=== PATIENT | male | born 1955 | race Caucasian/White ===

== ENCOUNTER 2020-02-07 11:25 | Outpatient (REF) | payer BC, SELFPAY | END 2020-02-07 11:45 | LOC: LBN 11:25 | PROVIDERS: PCP Nurse Practitioner; Visit Provider Nurse Practitioner Gerontology | DX: N40.1 Benign prostatic hyperplasia with lower urinary tract symptoms (principal); N13.8 Other obstructive and reflux uropathy | CPT/HCPCS: 87086 ==

== ENCOUNTER 2020-02-14 02:02 | Outpatient (CLI) | payer BC, SELFPAY ==
--- NOTE | 2020-02-14 11:00 | DI.CT_ITS ---
EXAM: CT ABDOMEN PELVIS WO/W CLINICAL HISTORY: microscopic hematuria, R31.9 TECHNIQUE: CT examination of the abdomen and pelvis was performed utilizing CT urogram protocol. COMPARISON: No exams were available for comparison FINDINGS: Noncontrast CT shows no urinary tract calcification. There are changes of apparent scarring of the lung bases bilaterally. There is a right middle lobe s mooth margined noncalcified intrapulmonary nodule which measures 5 x 7 x [address] Follow[address] CT recommended in [address] can be obtained for comparison. The liver and kidneys contain multiple small cysts. No solid lesion identified in the kidneys or max er. Splenic granuloma noted. Spleen otherwise unremarkable. There is a 19 millimeter left adrenal mass with attenuation in the 0-5 Hounsfield unit range. This i s likely benign and does not require additional follow-up. There is 40 millimeter in diameter abdominal aortic aneurysm which is infrarenal. 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 No significant abdominal or pelvic adenopathy seen. No significant abdominal wa ll hernia seen. Appendix is not specifically visualized but there is no evidence of appendicitis or diverticulitis. Apart from the aforementioned bilateral small renal cysts, the largest of the lower pole of the right kidney measuring roughly 2.5 cm in diameter, no renal mass is identified. No nephrolithiasis. No u reterolithiasis. No hydronephrosis. Urinary bladder appears mildly thick walled which is a nonspeci fic finding. Prostate is enlarged. IMPRESSION: 1. Urinary bladder wall thickening, nonspecific, this may represent chronic bladder outlet obstructio n or inflammation. 2. 40 millimeter in diameter abdominal aortic aneurysm. 3. Right and left common iliac artery aneurysms, 26 millimeters and 25 millimeters in diameter respec tively. 4. Incidental right middle lobe pulmonary nodule, noncalcified. Malignancy not excluded, follow-up c hest CT recommended in 6 months to assess stability in the absence of prior chest CT.
[2020-02-14] MEDS: Omnipaque 350 MG/ML 100 ML BTL IJ (11:36)
== END 2020-02-14 02:22 ==
PROVIDERS: PCP Nurse Practitioner; Visit Provider Nurse Practitioner Gerontology
DX: R31.29 Other microscopic hematuria (principal); N32.89 Other specified disorders of bladder; R91.1 Solitary pulmonary nodule; I71.4 Abdominal aortic aneurysm, without rupture; N28.1 Cyst of kidney, acquired; N40.0 Benign prostatic hyperplasia without lower urinary tract symptoms; I72.3 Aneurysm of iliac artery
CPT/HCPCS: 74178; J3490

== ENCOUNTER 2020-05-05 08:09 | Outpatient (CLI) | payer BC, SELFPAY ==
[2020-05-06 00:59] LABS: COVID-19 RT-PCR UVMMC Result Negative (Negative)
== END 2020-05-05 08:29 ==
PROVIDERS: Nurse Practitioner Gerontology; PCP Nurse Practitioner; Visit Provider Urology
DX: Z11.59 Encounter for screening for other viral diseases (principal)
CPT/HCPCS: U0003

== ENCOUNTER 2020-05-08 08:22 | Day surgery (SDC) | payer BC, SELFPAY ==
[2020-05-08 08:25] VITALS: BP 125/85; PULSE 83; RESP 16; TEMP 36.6; O2SAT 96
[2020-05-08] MEDS: Lactated Ringers 1,000 ML 80 ML IV (08:52)
--- NOTE | 2020-05-08 08:58 | W.PM.HP.N ---
Date of service: 05/08/20 Assessment and Plan Assessment and plan (1) Microscopic hematuria: Status: Acute Assessment and plan: We will complete his hematuria workup with cystoscopy History of Present Illness History of Present Illness Chief Complaint: Microscopic hematuria Narrative: Juan is 64-year-old male referred to urology by [facility] for dysuria, hematuria, and frequency. He reports that this is been going off and on for approximately 1 year. More recently he was treated with 2 different types of antibiotics for question of a UTI. He reports he was first on Bactrim which decreased the dysuria and frequency however, after coming off of the antibiotic symptoms returned again. He was then placed on doxycycline which he reports did nothing for his symptoms. He reports recently in the last few days approximately 3 hours after he had intercourse with his he had a painful sensation. He denies gross hematuria, hesitancy, the feeling of incomplete emptying, abnormal bleeding or bruising, abnormal weight, or long bone pain(he questions if he does have long bone pain because he has hip pain but that is been going on for a long time). He questions if he passed a kidney stone recently due to having right flank pain and shortly after straining to urinate having seen what he thought was a possible stone. He is currently on Flomax 0.4 mg p.o. daily since August(approximately 6 months). He does not know if it has helped with any of his LUTS. He reports frequent urination approximately 8-10 times during the day and 3:57 at night. He has discomfort with urinating, slow stream, weak stream, need to push, urgency and history of prostate inflammation. He notes that he recently had a PAULY with his PCP. He states he also had a PSA done recently. He was evaluated with a CT Urogram that shows no solid renal mass. No filling defects in the renal pelvis or ureters are seen. Review of Systems Narrative: Const: Reports as per HPI; Denies chills, fatigue, fever(s) or weight loss Card: Denies chest pain or dyspnea Resp: Denies dyspnea GI: Denies abdominal pain, constipation or diarrhea : Reports dysuria, nocturia, urinary frequency and urinary urgency; Denies hematuria, flank pain, urinary hesitancy or urinary incontinence Endo: Denies fatigue PFSH Social History Smoking/Tobacco Use Status: Former Tobacco Use Quit Date: 08/24/19 Alcohol Intake: never Drug use: Never Substance use type: does not use Do you feel safe at home: Yes Do you feel safe in your relationship?: Yes Meds Home Medications and Allergies Home Medications Medication Instructions Recorded Confirmed Type aspirin 81 mg PO DAILY tab-cap NS 08/12/17 05/08/20 History pyridostigmine bromide 60 mg PO QID tab-cap NS 08/12/17 05/08/20 History atorvastatin 20 mg tablet 20 mg PO DAILY 01/31/20 05/08/20 History diphenhydramine 25 1 tab PO QHS PRN 01/31/20 05/08/20 History mg-acetaminophen 500 mg tablet nicotine 1 patch TD DAILY 01/31/20 05/08/20 History 21mg/24hr-14mg/24hr-7mg/24hr daily transderm patch,sequential tamsulosin 0.4 mg capsule 0.8 mg PO DAILY #180 cap 02/16/20 05/08/20 Rx Allergies Allergy/AdvReac Type Severity Reaction Status Date / Time blueberry Allergy Unverified 05/08/20 08:27 Exam Narrative Exam Narrative: Const Orientation: alert, awake and oriented x3 Other: VS reviewed that were done by nurse Eyes Sclera: sclerae normal Resp Effort & Inspection: normal respiratory effort GI Inspection: normal to inspection and non-distended Palpation: soft and nontender Rectal Exam: prostate abnormal enlarged; no nodules and nontender General: No CVA tenderness Extrem General: full ROM Resp Auscultation: clear to auscultation bilaterally Cardio Rate: regular rate Rhythm: regular rhythm Results Last Vital Signs Temp 36.6 C 05/08/20 08:25 Pulse 83 05/08/20 08:25 Resp 16 05/08/20 08:25 BP 125/85 05/08/20 08:25 Pulse Ox 96 05/08/20 08:25 COVID-19 Screening In the past 14 days, have you traveled outside of [place] or [place]?: NO
[2020-05-08] MEDS: ceFAZolin 1 GM/50 ML BAG IVPB (11:01)
[2020-05-08] MEDS: Lidocaine 2% Jelly 6 ML SYR (11:16)
--- NOTE | 2020-05-08 11:22 | W.PM.DSUDISC ---
Discharge Plan Disposition Patient Disposition: HOME Condition: Stable Discharge Details Attending Provider: Jeffrey Aguirre Primary Care Provider: Hermila Hamilton Home Meds and New Rx's Prescriptions: No Action tamsulosin 0.4 mg capsule 0.8 mg PO DAILY Qty: 180 RF: 3 aspirin 325 MG tablet 81 mg PO DAILY RF: 0 pyridostigmine bromide 60 MG tablet 60 mg PO QID RF: 0 atorvastatin 20 mg tablet 20 mg PO DAILY RF: 0 diphenhydramine-acetaminophen [Tylenol PM Extra Strength] 25-500 mg tablet 1 tab PO QHS PRNRF: 0 nicotine 21-14-7 mg/24 hr patch, TD daily, sequential 1 patch TD DAILY RF: 0 Discharge Instructions Additional Instructions: Will need yearly urinalysis (for microscopic hematuria) Will need 3 month followup for his BPH with LUTS (Melissa Saeed) Activity:: Activity as Tolerated Shower/Bathe:: 24 hours Diet:: As Tolerated Discharge Orders Discharge Orders: Discharge Order (Routine); Ordered 05/08/20 Ordered By: Jeffrey Aguirre DS: Diagnosis Discharge Diagnosis (1) Microscopic hematuria: Status: Acute
--- NOTE | 2020-05-08 11:30 | W.PM.OP ---
Date of service: 05/08/20 Time of Service: 11:30 Operative Note Operative Note DATE OF PROCEDURE: 05/08/20 PRE-OP DIAGNOSIS: Microscopic Hematuria POST-OP DIAGNOSIS: same PROCEDURE: Cystoscopy SURGEON: Jeffrey Aguirre ANESTHESIA: local and other (General by facemask) ESTIMATED BLOOD LOSS: 0 PATHOLOGY: none sent COMPLICATIONS: None Patient was transported to: same day Patient's condition: stable Indications: This is a 65-year-old gentleman who has a finding of microscopic hematuria. He was evaluated with a CT urogram which showed no sign of significant renal or ureteral pathology. He presents now for cystoscopy to complete his hematuria work-up. Findings: Diffusely enlarged prostate No bladder lesions Procedure Description: The patient was given a dose of preoperative IV antibiotics and brought to the operating room on 05/08/2020. After successful induction of general anesthesia he was placed in the dorsal lithotomy position. His genitalia was prepped and draped. 2% Xylocaine jelly was passed through the urethra into the bladder to act as a local anesthetic. We then passed a 17 Macanese cystoscope through the urethra to the bladder. The urethra and bladder were inspected with a 30 degree lens. The pendulous, bulbous and membranous urethra was appeared normal with no strictures. The prostatic urethra showed trilobar hypertrophy with a small median lobe jetting back into the bladder. The bladder neck was entered and the bladder mucosa was inspected. Both ureteral orifice ease appeared normal with no blood seen coming from either side. The remainder of the bladder mucosa showed no papillary or nodular lesions. These findings were confirmed on reinspection of the bladder using a 70 degree lens. With no suspicious pathology identified, we drained the bladder and remove the scope. He tolerated this procedure well. The current AUA recommendations include a yearly urinalysis and a repeat work-up in 3 to 5 years if the hematuria persists.
[2020-05-08] MEDS: Phenazopyridine 200 MG TAB PO (11:53)
[2020-05-08 12:04] VITALS: BP 129/73; PULSE 76; RESP 18; TEMP 36.5; O2SAT 96
== END 2020-05-08 12:15 | disposition home or self-care (01) ==
PROVIDERS: PCP Nurse Practitioner; Visit Provider Urology
PROC: 0TJB8ZZ Inspection of Bladder, Via Natural or Artificial Opening Endoscopic (ICD-10-PCS; CPT 52000; principal; 2020-05-08 09:30)
DX: R31.29 Other microscopic hematuria (principal); N40.0 Benign prostatic hyperplasia without lower urinary tract symptoms
CPT/HCPCS: 52000; NC; J0690

== ENCOUNTER 2021-04-24 17:40 | Outpatient (REF) | payer BC, SELFPAY ==
[2021-04-24 16:12] LABS: Bilirubin Negative (Negative); Blood Small (Negative); Clarity Clear (Clear); Glucose Negative (Negative); Ketones Negative (Negative); Leukocyte Esterase Negative (Negative); Nitrite Negative (Negative); Specific Gravity 1.025 (1.005-1.025); Urobilinogen 0.2 EU/dL (Up TO 0.2); pH 5.5 (5-8)
[2021-04-24 16:22] LABS: WBC Negative HPF (0-5)
[2021-04-24 16:23] LABS: Bacteria Negative HPF (Negative); C & S Indicated? No; Casts Negative LPF (Negative); Crystals Negative HPF (Negative); Epithelial Cells Rare HPF (Negative); Mucus Negative (Negative); Other Cells Rare Renal (Negative)
== END 2021-04-24 17:41 | disposition home or self-care (01) ==
LOC: LBN 17:40
PROVIDERS: PCP Nurse Practitioner; Visit Provider Nurse Practitioner Gerontology
DX: R31.1 Benign essential microscopic hematuria (principal)
CPT/HCPCS: 81003; 81015

== ENCOUNTER → 2021-12-27 07:58 | Outpatient (BNVA) | payer MEDICARE, SELFPAY | PROVIDERS: PCP Nurse Practitioner; Referring Provider Nurse Practitioner; Visit Provider Nurse Practitioner Gerontology | DX: N40.1 Benign prostatic hyperplasia with lower urinary tract symptoms (principal); N13.8 Other obstructive and reflux uropathy; R31.29 Other microscopic hematuria; R10.2 Pelvic and perineal pain | CPT/HCPCS: 99443 ==

== ENCOUNTER → 2022-01-28 14:39 | Outpatient (BNVA) | payer MEDICARE, SELFPAY | PROVIDERS: PCP Nurse Practitioner; Referring Provider Nurse Practitioner; Visit Provider Nurse Practitioner Gerontology | DX: R69 Illness, unspecified (principal) ==

== ENCOUNTER → 2022-01-29 09:47 | Outpatient (BNVA) | payer MEDICARE, SELFPAY | PROVIDERS: PCP Nurse Practitioner; Referring Provider Nurse Practitioner; Visit Provider Nurse Practitioner Gerontology | DX: N40.1 Benign prostatic hyperplasia with lower urinary tract symptoms (principal); N13.8 Other obstructive and reflux uropathy; R31.29 Other microscopic hematuria; N41.9 Inflammatory disease of prostate, unspecified | CPT/HCPCS: 81003; 99214 ==

== ENCOUNTER 2022-01-29 15:45 | Outpatient (REF) | payer MEDICARE, SELFPAY ==
[2022-01-29 13:01] LABS: Bilirubin Negative (Negative); Blood Large (Negative); Clarity Sl Cloudy (Clear); Glucose Negative (Negative); Ketones Negative (Negative); Leukocyte Esterase Trace (Negative); Nitrite Negative (Negative); Specific Gravity >= 1.030 (1.005-1.025); Urobilinogen 0.2 EU/dL (Up TO 0.2); pH 5.5 (5-8)
[2022-01-29 13:07] LABS: Bacteria Rare HPF (Negative); C & S Indicated? C&S Done As Ordered; Casts 3-5 Hyaline LPF (Negative); Crystals Negative HPF (Negative); Epithelial Cells Few HPF (Negative); Mucus Negative (Negative); RBC >50 HPF (0-2)
== END 2022-01-29 15:46 | disposition home or self-care (01) ==
LOC: NCHCN 15:45
PROVIDERS: PCP Nurse Practitioner; Visit Provider Nurse Practitioner Gerontology
DX: R30.0 Dysuria (principal)
CPT/HCPCS: 81003; 81015; 87086

== ENCOUNTER 2022-01-29 16:14 | Outpatient (REF) | payer MEDICARE, SELFPAY ==
[2022-01-31 19:51] LABS: PSA, Screening 1.7 ng/mL (0.0-4.5)
== END 2022-01-29 16:15 | disposition home or self-care (01) ==
LOC: LBN 16:14
PROVIDERS: PCP Nurse Practitioner; Visit Provider Nurse Practitioner Gerontology
DX: N13.8 Other obstructive and reflux uropathy (principal); N40.1 Benign prostatic hyperplasia with lower urinary tract symptoms; Z12.5 Encounter for screening for malignant neoplasm of prostate
CPT/HCPCS: 84153

== ENCOUNTER → 2022-02-13 14:40 | Outpatient (BNVA) | payer MEDICARE, SELFPAY | PROVIDERS: PCP Nurse Practitioner; Referring Provider Nurse Practitioner; Visit Provider Nurse Practitioner Gerontology | DX: N40.1 Benign prostatic hyperplasia with lower urinary tract symptoms (principal); N13.8 Other obstructive and reflux uropathy; R31.29 Other microscopic hematuria; R10.2 Pelvic and perineal pain | CPT/HCPCS: 99443 ==

== ENCOUNTER → 2022-06-26 07:35 | Outpatient (BNVA) | payer MEDICARE, SELFPAY | PROVIDERS: PCP Nurse Practitioner; Referring Provider Nurse Practitioner; Visit Provider Nurse Practitioner Gerontology | DX: R35.1 Nocturia (principal); R39.15 Urgency of urination; R39.12 Poor urinary stream; N40.1 Benign prostatic hyperplasia with lower urinary tract symptoms; N13.8 Other obstructive and reflux uropathy; R31.0 Gross hematuria | CPT/HCPCS: 99443 ==

== ENCOUNTER 2022-08-14 10:16 | Outpatient (REF) | payer MEDICARE, SELFPAY ==
[2022-08-14 11:35] LABS: Source Nasal/Nares
[2022-08-14 16:51] LABS: COVID-19 PCR Negative (Negative)
== END 2022-08-14 10:17 | disposition home or self-care (01) ==
LOC: LBN 10:16
PROVIDERS: PCP Nurse Practitioner; Visit Provider Urology
DX: Z11.59 Encounter for screening for other viral diseases (principal)
CPT/HCPCS: 87635

== ENCOUNTER 2022-08-15 09:13 | Inpatient (IN) | payer MEDICARE, SELFPAY ==
[2022-08-15] VITALS (19 sets, daily range): BP systolic 47–138; BP diastolic 34–86; PULSE 57–89; RESP 13–26; TEMP 36–36.7; O2SAT 91–96; BMI 24.8
--- NOTE | 2022-08-15 06:49 | ANES.PREOP_ITS ---
General Info Date of Service Date Performed: 08/15/22 Height: 6 ft Weight: 83.007 kg Body Mass Index (BMI): 24.8 Surgical Procedure: Operation Date: 08/15/22 07:40 Proposed Procedure Side Surgeon p Cysto w/Transurethral Resection Prostate Jeffrey Aguirre MD Meds Allergies and Home Medications Allergies Allergy/AdvReac Type Severity Reaction Status Date / Time finasteride Allergy testicular Verified 08/15/22 06:27 discomfort blueberry AdvReac Vomiting Unverified 08/15/22 06:27 Home Medication Medication Instructions Recorded aspirin 325 mg tablet 81 mg PO HS 08/12/17 atorvastatin 20 mg tablet 20 mg PO HS 01/31/20 diphenhydramine 25 1 tab PO QHS PRN 01/31/20 mg-acetaminophen 500 mg tablet (Tylenol PM Extra Strength) ibuprofen 800 mg tablet 800 mg PO TID PRN pain #360 tabs 09/05/21 amitriptyline 50 mg tablet 50 mg PO QHS #90 tabs 01/29/22 tadalafil 5 mg tablet (Cialis) 5 mg PO HS 08/13/22 tamsulosin 0.4 mg capsule 0.8 mg PO HS 08/13/22 Current Visit Medications: Current Medications Generic Name Dose Route Start Last Admin Trade Name Freq PRN Reason Stop Dose Admin Ringer's Solution 1,000 mls @ 80 mls/hr 08/15/22 06:00 IV 09/13/22 23:59 INFUSION OLIVE Cefazolin Sodium/Dextrose 2 gm in 50 mls @ 100 mls/hr 08/15/22 06:00 Ancef Duplex IVPB 08/15/22 16:00 PREOP OLIVE IV Miscellaneous Supplies 1 each 08/15/22 06:00 Iv Access IV 09/13/22 23:59 DIRECTED OLIVE Sodium Chloride 0 ml 08/15/22 06:00 Normal Saline Flush 10 Ml Syr IV 09/13/22 23:59 PRN PRN Sodium Chloride 0 ml 08/15/22 06:00 Normal Saline 10 Ml Vial IJ 09/13/22 23:59 DIRECTED PRN Sterile Water 0 ml 08/15/22 06:00 Water,Injection,Sterile 10 Ml Vial IJ 09/13/22 23:59 DIRECTED PRN PFSH Active Problems Active Problems: Problem Status Onset Code BPH w urinary obs/LUTS N40.1, N13.8 Microscopic hematuria R31.29 Medical History Medical History 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 Basal cell carcinoma Dysuria [place]liac artery [place] [facility] [place] Left hip pain Osteoarthritis of hip Medical History Comments:: Per pt. when he had the hip replacment, he had a post-op ileus of bowel for 2 weeks Surgical History Surgical History History of appendectomy History of hernia repair Double hernia History of right hip replacement S/P skin biopsy head/neck Status post Mohs surgery Tobacco Smoking/Tobacco Use Status: Current-Occasional Tobacco Type: cigarettes Alcohol Alcohol Intake: never Substance Use Substance use: Never Substance use type: does not use Vital Signs and Lab Results Lab Results Blood Type / Crossmatch: No Data to Display Complete Blood Count: No Data to Display Complete Metabolic Panel: No Data to Display Liver Function Panel: No Data to Display Coagulation Panel: No Data to Display Cardiac Panel: No Data to Display Arterial Blood Gas: No Data to Display Venous Blood Gas: No Data to Display Pancreas Panel: No Data to Display Thyroid Panel: No Data to Display Infectious Disease: Coronavirus (COVID-19)(PCR) Negative (Negative) 08/14/22 11:34 Coronavirus 2019 Source Nasal/Nares 08/14/22 11:34 Blood Cultures: No Data to Display Toxicology Panel: No Data to Display Anesthesia Assessment and Plan Anesthesia History Personal History: Other (Patient states last spinal caused his ileus and resultant sepsis after total hip arthroplasty. Discussed likelihood with patient and educated) Family History: No Family History of Anesthesia Complications Exercise Tolerance Exercise Tolerance: Metabolic Equivalents>4 Pertinent Negatives Pertinent Negatives: No Symptoms of GERD, No Major Pulmonary Symptoms or Complaints (COVID in june) and No History of CVA/TIA Cardiac & Pulmonary Exam Cardiac Exam: Normal S1/S2 Heart Sounds Pulmonary Exam: Clear Bilateral Breath Sounds Implantable Cardiac Device Does patient have a Pacemaker or an ICD?: No Airway Exam Known Difficult Airway: No Mallampati Class: 2 Mouth Opening: Normal (> 3cm) Thyromental Distance: Greater than 3 cm Neck Range of Motion: Full ROM Neck Circumference: Normal Teeth Condition: Edentulous ASA Classification ASA Score: ASA 2 Emergency Case?: No NPO Status NPO Status: NPO Clears >2 hours, Solids >8 hours Anesthesia Plan Resuscitation Status: Full Code Anesthesia Technique: General Anesthesia Airway Planned: Endotracheal Tube Monitors Used: Standard Monitors Preoperative Comments:: AAAs [place] [facility] [place] and were last assessed in May
--- NOTE | 2022-08-15 06:51 | W.PM.HP.N ---
Date of service: 08/15/22 Time of Service: 06:51 Assessment and Plan Assessment and plan (1) BPH w urinary obs/LUTS: Status: Acute Assessment and plan: Since he has failed maximal medical therapy, he is agreeable to cystoscopy with TURP. History of Present Illness History of Present Illness Chief Complaint: Lower Urinary Tract symptoms Narrative: Juan is a 67-year-old male with BPH with LUTS currently on Cialis 5 mg and tamsulosin 0.8 mg daily.? He failed use of finasteride due to adverse effects of medication.? Juan continues to have urgency, shooting pain before his flow starts, weak flow, the feeling of not emptying, voiding hourly at night, and intermittent gross hematuria.? He did in the past have a hematuria work-up that demonstrated an enlarged vascular prostate but no bladder lesions. He has had clots in urine which have passed spontaneously. He has not required catheterization. With his persistent symptoms in spite of maximal medical therapy, he presents for TURP. Review of Systems Narrative: No fevers or chills No vision change or dysphasia No diabetes or thyroid No shortness of breath, cough or hemoptysis No chest pain or palpitations No nausea, vomiting, hepatitis, ulcers, jaundice, diarrhea or constipation No seizures, strokes or peripheral neuropathy No bleeding disorders or anemia No gout or arthralgia PFSH All Active Problems BPH w urinary obs/LUTS (Acute) Microscopic hematuria (Acute) Medical History 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 Basal cell carcinoma Dysuria Iliac artery aneurysm, bilateral F/[place] [facility] [place]04[place] Left hip pain Osteoarthritis of hip Surgical History History of appendectomy History of hernia repair Double hernia History of right hip replacement S/P skin biopsy head/neck Status post Mohs surgery Social History Smoking/Tobacco Use Status: Current-Occasional Tobacco Type: cigarettes Smoking risk assessment performed?: Yes Alcohol Intake: never Drug use: Never Substance use type: does not use Additional Social history: Unable to assess privately Meds Allergies and Home Medications Allergies Allergy/AdvReac Type Severity Reaction Status Date / Time finasteride Allergy testicular Verified 08/15/22 06:27 discomfort blueberry AdvReac Vomiting Unverified 08/15/22 06:27 Home Medications Medication Instructions Recorded Confirmed Type aspirin 325 mg tablet 81 mg PO HS 08/12/17 08/15/22 History atorvastatin 20 mg tablet 20 mg PO HS 01/31/20 08/15/22 History diphenhydramine 25 1 tab PO QHS PRN 01/31/20 08/13/22 History mg-acetaminophen 500 mg tablet (Tylenol PM Extra Strength) ibuprofen 800 mg tablet 800 mg PO TID PRN pain #360 tabs 09/05/21 08/15/22 Rx amitriptyline 50 mg tablet 50 mg PO QHS #90 tabs 01/29/22 08/15/22 Rx tadalafil 5 mg tablet (Cialis) 5 mg PO HS 08/13/22 08/15/22 History tamsulosin 0.4 mg capsule 0.8 mg PO HS 08/13/22 08/15/22 History Exam Const General: cooperative and comfortable Neck Neck: supple Resp Effort & Inspection: normal respiratory effort Auscultation: clear to auscultation bilaterally Cardio Rate: regular rate Rhythm: regular rhythm GI Palpation: soft and no masses Neuro General: patient alert, patient awake and patient oriented x3
[2022-08-15] MEDS: Lactated Ringers 1,000 ML 80 ML IV ×3 (07:04→12:54)
[2022-08-15] MEDS: ceFAZolin 2 GM/50 ML BAG IVPB (07:52)
[2022-08-15] MEDS: Lidocaine 2% Jelly 6 ML SYR (08:00)
--- NOTE | 2022-08-15 09:10 | PROST_PTH ---
PATIENT: Juan Dean LOC: U#:[id number] AGE/SX: 67/M ROOM: RE08/15/[address]: Jeffrey Aguirre MD : [id number] BED: A DIS: 08/16/2022 SPEC #: [id number] RECD: 08/15/22 12:44 STATUS: KATIE REQ #: [id number] ENRIQUE: 08/15/22 09:[address]: Jeffrey Aguirre DEPT: Surgical Specimen RECD BY: Isabell Ramos ENTERED: 08/15/22 12:44 SP TYPE: PROST OTHR DR: Hermila Hamilton Tissues: 1 - PROSTATE CURRETTINGS Procedures: GROSS AND MICRO LEVEL 4 IMMUNOPEROXIDASE STAIN Comments: [id number]
--- NOTE | 2022-08-15 09:25 | W.PM.OP ---
Date of service: 08/15/22 Time of Service: 09:25 Operative Note Operative Note DATE OF PROCEDURE: 08/15/22 PRE-OP DIAGNOSIS: BPH with lower urinary tract symptoms POST-OP DIAGNOSIS: same papillary mucosa along prostatic urethra (right bladder neck) PROCEDURE: cystoscopy, TURP SURGEON: Jeffrey Aguirre ANESTHESIA TYPE: General LMA/ETT Refer to Anesthesia Record ESTIMATED BLOOD LOSS: 300 PATHOLOGY: other (prostate chips) COMPLICATIONS: None Patient was transported to: PACU Patient's condition: stable Implants: 22 Belarusian Coude tipped irrigating catheter with 30 cc sterile water in balloon Indications: Is a 67-year-old gentleman who has a history of lower urinary tract symptoms and microscopic hematuria. He had a hematuria work-up about 2 years ago. At that time, he had a normal CT urogram. His cystoscopy showed no suspicious bladder lesions. Since then, he has had progressive lower urinary tract symptoms. He has also developed gross hematuria with occasional clots. He has failed maximal medical therapy for lower urinary tract symptoms. He presents now for cystoscopy with transurethral resection of the prostate. Findings: No papillary lesions within the lumen of the bladder Papillary lesions on the prostatic urethra especially towards the right bladder neck Procedure Description: Patient was brought to the operating room on 08/15/2022. He was given preoperative IV antibiotics. After successful induction of general anesthesia, he was placed in the dorsal lithotomy position. His genitalia was prepped and draped. 2% Xylocaine jelly was instilled into the urethra to act as a local anesthetic. A 24 Belarusian resectoscope sheath was passed through the urethra into the bladder. The urethra was inspected using the visual obturator and a 30 degree lens. There was a narrowing just within the urethral meatus but we were able to dilate the area with the scope. The remainder of the penile urethra appeared normal as did the membranous and bulbar urethra. The prostatic urethra showed an adherent clot out toward the verumontanum. There was some lateral lobe enlargement of the prostate but no significant median lobe. On the right bladder neck region, the prostatic mucosa appeared especially papillary. This abnormal mucosa did not seem to involve the bladder. Both ureteral orifices appeared normal. No blood was seen coming from either side. Transurethral resection of the prostate was then performed using bipolar cautery and the resectoscope loop. The resection was carried down to the level of the prostatic capsule. The resection extended from the bladder neck out to the verumontanum. We then switched over to the button electrode and vaporized the remainder of the prostatic tissue for hemostasis. At the completion of the procedure, no active arterial bleeding was seen. All resected tissue was evacuated and sent to pathology for permanent section. A 22 Belarusian hematuria catheter was then passed through the urethra into the bladder. The catheter balloon was inflated with 30 cc of sterile water. Continuous bladder irrigation with saline was begun. Traction was placed on the catheter until the irrigant cleared. A belladonna and opium suppository was then placed in the patient's rectum. He tolerated this procedure with no complications. He was taken to the recovery room in stable condition.
[2022-08-15] MEDS: ePHEDrine 25 MG/5 ML Syringe IVP (09:36)
[2022-08-15] MEDS: Ketorolac 15 MG/ML VIAL IVP ×3 (10:19→21:34)
[2022-08-15] MEDS: ACETAMINOPHEN 1,000 MG/100 ML BTL 400 MG IVPB (10:20)
[2022-08-15] MEDS: Normal Saline 10 ML VIAL IJ (10:37)
[2022-08-15] MEDS: HYDROmorphone 2 MG/ML SYR IVP (10:37)
[2022-08-15] MEDS: traMADol 50 MG TAB PO (11:56)
--- NOTE | 2022-08-15 13:24 | W.ANESPOSTOP ---
Postoperative Evaluation Date, Time and Location Date Performed: 08/15/22 Time Performed: 13:24 Patient Location: PACU Vital Signs Most Recent Imported Vital Signs: Most Recent Vital Signs Temp Pulse Resp BP Pulse Ox 36.4 C L 75 16 131/82 95 08/15/22 12:54 08/15/22 12:54 08/15/22 12:54 08/15/22 12:54 08/15/22 12:54 Pain Score Most Recent Pain Score: Most Recent Pain Score Pain Level [penis] 7 08/15/22 12:54 Pain Level 7 08/15/22 12:54 Assessment Mental Status: Awake (Alert & Oriented to Patient Baseline) Airway and Respiratory Function: Patent airway with normal (patient baseline) respiratory exam Cardiovascular Function: Hemodynamically Stable Hydration Status: Adequately Hydrated Nausea & Vomiting: No Nausea or Vomiting Pain: Pain is Moderate or Severe Postoperative Pain Management: Pain being addressed with medication and Ongoing pain, patient will be managed as an inpatient Peripheral Nerve Block: Patient did not receive a nerve block Postoperative Comments:: Saw patient in PACU and discussed care. Not very happy about amount of pain postoperatively. Balancing low HR, BP, and RR with pain control and pain expectations. Have treated non-narcotically and with narcotics
[2022-08-15] MEDS: Acetaminophen 325 MG TAB 650 MG PO (14:25)
[2022-08-15] MEDS: Normal Saline Flush 10 ML SYR IV ×2 (15:22→16:49)
[2022-08-15] MEDS: ceFAZolin 1 GM/50 ML BAG IVPB ×2 (15:22→23:26)
[2022-08-15] MEDS: Atorvastatin 20 MG TAB PO (21:33)
[2022-08-15] MEDS: Amitriptyline 50 MG TAB PO (21:33)
[2022-08-15] MEDS: Calcium Carbonate *TUMS* 500 MG CHEW 1000 MG PO (23:26)
[2022-08-16 00:17] VITALS: BP 139/85; PULSE 99; RESP 18; TEMP 36.1; O2SAT 93
[2022-08-16] MEDS: Lactated Ringers 1,000 ML 80 ML IV (01:30)
[2022-08-16] MEDS: Ketorolac 15 MG/ML VIAL IVP (04:06)
--- NOTE | 2022-08-16 07:15 | W.PM.PROGNOT ---
Date of Service Date of service: 08/16/22 Time of Service: 07:16 Assessment and Plan Assessment and plan (1) BPH w urinary obs/LUTS: Status: Acute Assessment and plan: We will discharge him to home home with his Pimentel catheter in place. He will come into our office next week for a voiding trial. Subjective Subjective Interval history since last seen: He remained fairly comfortable overnight with a few bladder spasms. He finds that tramadol works well for his pain control. He did not have any episodes of clot retention. Exam Narrative Exam Narrative: He looks comfortable. His vital signs are documented elsewhere His urine is remaining transparent He is awake and alert Objective Last Vital Signs Temp 36.1 C L 08/16/22 00:17 Pulse 99 H 08/16/22 00:17 Resp 18 08/16/22 00:17 BP 139/85 08/16/22 00:17 Pulse Ox 93 08/16/22 00:17
--- NOTE | 2022-08-16 07:17 | DSE_ITS ---
Date of service: 08/16/22 Time of Service: 07:17 DS: Diagnosis Discharge Diagnosis (1) BPH w urinary obs/LUTS: Status: Acute Discharge Plan Disposition Patient Disposition: HOME Condition: Stable Discharge Details Reason For Visit: BPH with LUTS Admit Date/Time: 08/15/22 09:13 Admit Provider: Jeffrey Aguirre Attending Provider: Jeffrey Aguirre [facility] Hospital Course: The patient was did and taken to the operating room on 08/15/2022. He underwent transurethral resection of the prostate with vaporization of the prostate tissue. The resected prostate was sent to pathology and the results are still pending. Following the procedure, he was hospitalized for continuous bladder irrigation overnight. On postoperative day #1 the irrigant remained clear. The irrigant was discontinued and he is being discharged to home with his Pimentel catheter still in place. Home Meds and New Rx's Prescriptions: New tramadol 50 mg tablet 50 mg PO Q6H PRN (Reason: pain) Qty: 15 0RF Discontinued tamsulosin 0.4 mg capsule 0.8 mg PO HS No Action amitriptyline 50 mg tablet 50 mg PO QHS Qty: 90 2RF Rx Instructions: Note dosage increase ibuprofen 800 mg tablet 800 mg PO TID PRN (Reason: pain) Qty: 360 3RF aspirin 325 MG tablet 81 mg PO HS atorvastatin 20 mg tablet 20 mg PO HS diphenhydramine-acetaminophen [Tylenol PM Extra Strength] 25-500 mg tablet 1 tab PO QHS PRN tadalafil [Cialis] 5 mg tablet 5 mg PO HS Rx Instructions: Use for BPH s/s Discharge Instructions Additional Instructions: Resume all med occasions with the exception of tamsulosin Pimentel catheter to leg bag Follow-up next week for catheter removal in my office Follow-up appointment to review pathology results in 1 to 2 weeks Stand Alone Forms: Nursing Discharge Form Referrals: Jeffrey Aguirre MD [ [facility] STAFF PHYSICIAN] - Activity:: No lifting over 20 pounds for 1 week Shower/Bathe:: 24 hours Activity:: No lifting over 20 poun Equipment/Supplies:: Pimentel catheter to leg bag Diet:: As Tolerated Discharge Orders Discharge Orders: Discharge Order (Routine); Ordered 08/16/22 Ordered By: Jeffrey Aguirre Discharge Data Discharge Physician: Jeffrey Aguirre DS: Summary Time Spent with Patient providing and/or coordinating discharge services: Less than 30 minutes Status at Discharge Functional status at discharge: independent ambulation Overall status at discharge: patient is back to baseline Mental Status: mental status grossly normal Speech and Movement: speech and movement normal Mood: congruent mood Affect: normal affect Exam Narrative Exam Narrative: At the time of discharge carriage, he looks comfortable. His vital signs are documented elsewhere His chest wall motion is normal. He does not appear short of breath at rest. His abdomen is soft with no guarding or rebound tenderness The bladder output is clear with irrigation at a very slow rate He is awake and alert Psych Mental Status: mental status grossly normal Speech and Movement: speech and movement normal Mood: congruent mood Affect: normal affect DS: Data Vitals/I&O Vitals and I&O: Vital Signs Temperature 36.1 C L 08/16/22 00:17 Temperature Source Tympanic 08/16/22 00:17 Pulse 99 H 08/16/22 00:17 Pulse Rhythm Regular 08/16/22 03:20 Respiratory Rate 18 08/16/22 00:17 Respiratory Effort 08/16/22 03:20 Respiratory Depth Normal 08/16/22 03:20 Respiratory Pattern Normal 08/16/22 03:20 Blood Pressure 139/85 08/16/22 00:17 Pulse Oximetry 93 08/16/22 00:17 Respiratory End-tidal CO2 36 08/15/22 11:05 Oxygen Delivery Method Room Air 08/16/22 00:17 Oxygen Flow Rate 0 08/16/22 00:17 Pain Level 4 08/16/22 00:17 Intake & Output 08/15/22 08/15/22 08/16/22 11:59 23:59 11:59 Intake Total 1150 / 2994 1794 / 2994 1050 / 1050 Balance 1150 / 2994 1794 / 2994 1050 / 1050 Weight 83.007 kg Intake: IV 1150 / 1794 594 / 1794 1050 / 1050 Oral 1200 / 1200 Other: Urine Color Avina Avina Urine Appearance Hematuria Hematuria Comment some small clots bladder irrigation 3 way nurse has been charting it Emesis Description None Data Completed and Pending Labs on day of discharge: Labs from last 24 hours 08/16/22 08/16/22 08:30 05:35 Hgb Pending Hct Pending Sodium Pending Potassium Pending Chloride Pending Carbon Dioxide Pending Anion Gap Pending BUN Pending Creatinine Pending Est GFR (CKD-EPI 2020) Pending Glucose Pending Calcium Pending PFSH All Active Problems BPH w urinary obs/LUTS (Acute) Microscopic hematuria (Acute) Medical History 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
[2022-08-16 07:30] LABS: HCT 34.4 % (40.0-50.0)
[2022-08-16 07:47] LABS: Anion Gap 7.5 mmol/L (3-11); BUN 30 mg/dL (7-18); CO2 28.5 mmol/L (21.0-32.0); CREATININE 1.5 mg/dL (0.70-1.30); Calcium 9.1 mg/dL (8.5-10.1); Chloride 100 mmol/L (98-107); Glucose 106 mg/dL (74-106); Potassium 3.8 mmol/L (3.5-5.1); Sodium 136 mmol/L (136-145)
[2022-08-16] MEDS: ceFAZolin 1 GM/50 ML BAG IVPB (07:58)
[2022-08-16] MEDS: Normal Saline Flush 10 ML SYR IV (08:01)
[2022-08-16 08:14] VITALS: BP 149/88; PULSE 89; RESP 16; TEMP 36.5; O2SAT 93
== END 2022-08-16 09:35 | disposition home or self-care (01) | DRG 666 ==
LOC: MS 11:31
PROVIDERS: Admitting Provider Urology; PCP Nurse Practitioner; Visit Provider Urology
PROC: 0VT08ZZ Resection of Prostate, Via Natural or Artificial Opening Endoscopic (ICD-10-PCS; CPT 52601; principal; 2022-08-15 07:30)
DX: N13.8 Other obstructive and reflux uropathy (principal); N40.1 Benign prostatic hyperplasia with lower urinary tract symptoms; R31.0 Gross hematuria; I72.3 Aneurysm of iliac artery; C67.9 Malignant neoplasm of bladder, unspecified
CPT/HCPCS: 52601; 36415; 80048; 88305; 85014; 85018; 88361; J0131; J0690; J1100; J1170; J1885; J2250; J2405; J2704; J3010

== ENCOUNTER 2022-08-17 18:13 | Emergency (ER) | payer MEDICARE, SELFPAY ==
[2022-08-17 18:19] VITALS: BP 164/89; PULSE 109; RESP 18; TEMP 36.9; O2SAT 95
[2022-08-17 19:46] LABS: Absolute Lymphocyte Count 1.61 10^3/uL (1.2-3.4); Absolute Monocyte Count 1.11 10^3/uL (0.1-0.8); Absolute Neutrophil Count 13.97 10^3/uL (1.2-6.7); Basophils % 1.3; Eosinophils % 0.6; HCT 39.4 % (40.0-50.0); HGB 13.3 g/dL (13.5-17.5); Immature Grans % 0.6; Lymphocytes % 9.4; MCH 30.2 pg (27.0-33.0); MCHC 33.8 % (32.0-36.0); MCV 89 fL (80-95); MPV 9.5 fL (8.0-11.0); Monocytes % 6.5; Neutrophils % 81.6; Platelet Count 249 10^3/uL (130-400); RBC 4.41 10^6/uL (4.36-5.78); RDW 13.8 % (11.8-14.1); RDW-SD 44.9 fL; WBC 17.12 10^3/uL (4.4-10.8)
[2022-08-17 19:50] LABS: Absolute Basophil Count 0.22 10^3/uL (0.0-0.2)
[2022-08-17 19:51] LABS: Lactate 0.8 mmol/L (0.6-1.4)
[2022-08-17] MEDS: Normal Saline 1,000 ML 1000 ML IV (19:51)
[2022-08-17] MEDS: Ondansetron 4 MG/2 ML VIAL IVP (19:51)
[2022-08-17 20:02] LABS: ALT 26 U/L (16-63); AST 25 U/L (15-37); Albumin 3.6 g/dL (3.4-5.0); Alkaline Phosphatase 97 U/L (46-116); Anion Gap 8.4 mmol/L (3-11); BUN 25 mg/dL (7-18); Bilirubin, Total 0.3 mg/dL (0.2-1.0); CO2 26.6 mmol/L (21.0-32.0); CREATININE 1.3 mg/dL (0.70-1.30); Calcium 9.6 mg/dL (8.5-10.1); Chloride 102 mmol/L (98-107); Estimated GFR 59.84 (mL/min/1.73m2); Glucose 135 mg/dL (74-106); Lipase 158 U/L (73-393); Potassium 3.9 mmol/L (3.5-5.1); Sodium 137 mmol/L (136-145); Total Protein 8.3 g/dL (6.4-8.2)
--- NOTE | 2022-08-17 20:24 | ED.GENADUL_ITS ---
Discharge Plan Disposition Patient Disposition: HOME Condition: Stable Discharge Details Clinical Impression: Nausea & vomiting Primary Care Provider: Hermila Hamilton ED Provider: Jonny Salguero Home Meds and New Rx's Prescriptions: New levofloxacin 750 mg tablet 750 mg PO DAILY Qty: 6 0RF ondansetron 4 mg tablet,disintegrating 4 mg PO Q8H PRN (Reason: nausea and vomiting) Qty: 30 0RF Continued amitriptyline 50 mg tablet 50 mg PO QHS Qty: 90 2RF Rx Instructions: Note dosage increase ibuprofen 800 mg tablet 800 mg PO TID PRN (Reason: pain) Qty: 360 3RF aspirin 325 MG tablet 81 mg PO HS atorvastatin 20 mg tablet 20 mg PO HS diphenhydramine-acetaminophen [Tylenol PM Extra Strength] 25-500 mg tablet 1 tab PO QHS PRN tadalafil [Cialis] 5 mg tablet 5 mg PO HS Rx Instructions: Use for BPH s/s tramadol 50 mg tablet 50 mg PO Q6H PRN (Reason: pain) Qty: 15 0RF Discharge Instructions Instructions: Acute Nausea and Vomiting (ED) Additional Instructions: you are being treated for a possible urinary tract infection follow up as scheduled with Dr. Aguirre if you feel more ill, have severe worsening pain or persistent vomiting despite the medicine return to the emergency department Medical Decision Making 67 yo male who underwent transurethral resection of the prostate 2 days ago and d/c'd yesterday comes in as he has had n/v and diarrhea most of the day today. Denies fevers, chest pain, dyspnea. HE has a bernal in place and has dark red bloody urine in the bag but only 10-20ccs. Abdomen is soft and nontender, speaking in full sentences, caox4. Suspect post op related n/v and possible uti, given lack of abdominal tenderness doubt sbo or other surgical pathology. Will obtain cbc, cmp, ua and reassess. pt feels better, urine now draining into bag and is mildly red urine, wbc of 17 which could be reactive from the n/v but has wbc's in urine so will cover for possible uti with levofloxacin. He is stable for d/c, has f/u friday with Dr. Aguirre, return precautions given Differential Diagnosis Differential Diagnosis: cystitis, post op complications, gastroenteritis Medical Records Medical records reviewed: Yes I reviewed the patient's medical records. Lab Data Lab results reviewed: Yes I reviewed the patient's lab results. HPI General Mode of arrival: ambulatory . Date/Time Provider Initiated Documentation: 08/17/22 18:38 . Limitations to Documentation: no limitations . Information obtained by: patient . History of Present Illness 67 year old M presents to the emergency department with the chief complaint of n/v/d, described as moderate, Patient started experiencing this day(s) (1) and it has been intermittent. No relieving factors improve symptom(s), No exacerbating factors reported . Patient notes no other symptoms.. Patient did receive the following treatments prior to arrival, none Related Data Home Medications Medication Instructions Recorded Confirmed aspirin 325 mg tablet 81 mg PO HS 08/12/17 08/17/22 atorvastatin 20 mg tablet 20 mg PO HS 01/31/20 08/17/22 diphenhydramine 25 1 tab PO QHS PRN 01/31/20 08/17/22 mg-acetaminophen 500 mg tablet (Tylenol PM Extra Strength) ibuprofen 800 mg tablet 800 mg PO TID PRN pain #360 tabs 09/05/21 08/17/22 amitriptyline 50 mg tablet 50 mg PO QHS #90 tabs 01/29/22 08/17/22 tadalafil 5 mg tablet (Cialis) 5 mg PO HS 08/13/22 08/17/22 tramadol 50 mg tablet 50 mg PO Q6H PRN pain #15 tabs 08/16/22 08/17/22 levofloxacin 750 mg tablet 750 mg PO DAILY #6 tabs 08/17/22 ondansetron 4 mg disintegrating 4 mg PO Q8H PRN nausea and 08/17/22 tablet vomiting #30 tabs Previous Rx's Medication Instructions Recorded ibuprofen 800 mg tablet 800 mg PO TID PRN pain #360 tabs 09/05/21 amitriptyline 50 mg tablet 50 mg PO QHS #90 tabs 01/29/22 tramadol 50 mg tablet 50 mg PO Q6H PRN pain #15 tabs 08/16/22 levofloxacin 750 mg tablet 750 mg PO DAILY #6 tabs 08/17/22 ondansetron 4 mg disintegrating 4 mg PO Q8H PRN nausea and 08/17/22 tablet vomiting #30 tabs Allergies Allergy/AdvReac Type Severity Reaction Status Date / Time finasteride Allergy testicular Verified 08/15/22 06:27 discomfort blueberry AdvReac Vomiting Unverified 08/15/22 06:27 General Stated Complaint: Nausea/Vomit/Diar MABEL: 3 Review of Systems All systems reviewed & are unremarkable except as noted in HPI and below Constitutional Constitutional: Denies chills, Denies fever(s) and Denies weakness Cardiovascular Cardiovascular: Denies chest pain and Denies dyspnea Respiratory Respiratory: Denies cough and Denies dyspnea Gastrointestinal Gastrointestinal: Denies abdominal pain Integumentary/Breasts Skin/Breast: Denies rash Neurologic Neurologic: Denies weakness [facility] All Active Problems (Updated 08/17/22 @ 21:18 by Jonny Salguero MD) Nausea & vomiting (Acute) BPH w urinary obs/LUTS (Acute) Microscopic hematuria (Acute) Medical History 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 Basal cell carcinoma Dysuria Iliac artery aneurysm, bilateral F/U @ [facility] [place]04[place] Left hip pain Osteoarthritis of hip Surgical History History of appendectomy History of hernia repair Double hernia History of right hip replacement S/P skin biopsy head/neck Status post Mohs surgery Social History Smoking/Tobacco Use Status: Current-Occasional Tobacco Type: cigarettes Smoking risk assessment performed?: Yes Alcohol Intake: never Drug use: Never Substance use type: does not use Additional Social history: Unable to assess privately Exam Const General: no acute distress Orientation: alert HENWY Head: normal to inspection Ears: external ears normal General nose exam: external nose normal Mouth: moist mucous membranes Eyes General: appearance normal, both eyes and all related structures Neck Neck: normal visual inspection Resp Effort & Inspection: normal respiratory effort and able to speak in complete sentences Cardio Rate: regular rate GI Palpation: soft and nontender Skin General skin exam: no rashes or lesions noted Neuro General: patient alert and patient oriented x3 Extrem General: normal to inspection Psych Mental Status: mental status grossly normal Course Vital Signs Vital signs: Vital Signs Temperature 36.9 C 08/17/22 18:19 Pulse 109 H 08/17/22 18:19 Respiratory Rate 18 08/17/22 18:19 Blood Pressure 164/89 H 08/17/22 18:19 Pulse Oximetry 95 08/17/22 18:19 Temperature 36.9 C 08/17/22 18:19 Temperature Source Temporal Artery Scan 08/17/22 18:19 Pulse 109 H 08/17/22 18:19 Respiratory Rate 18 08/17/22 18:19 Blood Pressure 164/89 H 08/17/22 18:19 Blood Pressure Position Sitting 08/17/22 18:19 Pulse Oximetry 95 08/17/22 18:19 Oxygen Delivery Method Room Air 08/17/22 18:19 Oxygen Flow Rate 0 08/17/22 18:19 Pain Level 5 08/17/22 18:19 Lab/Test Results Lab/Test Results: Laboratory Tests Range/Units 08/17/22 08/17/22 08/17/22 19:40 19:40 19:40 WBC (4.4-10.8) 10^3/uL 17.12 H RBC (4.36-5.78) 10^6/uL 4.41 Hgb (13.5-17.5) g/dL 13.3 L D Hct (40.0-50.0) % 39.4 L MCV (80-95) fL 89 MCH (27.0-33.0) pg 30.2 MCHC (32.0-36.0) % 33.8 RDW (11.8-14.1) % 13.8 Plt Count (130-400) 10^3/uL 249 MPV (8.0-11.0) fL 9.5 Immature Gran % 0.6 Neutrophils % 81.6 Lymphocytes % 9.4 Monocytes % 6.5 Eosinophils % 0.6 Basophils % 1.3 Nucleated RBC % (0.0-0.3) % 0.0 Absolute Neutrophils (1.2-6.7) 10^3/uL 13.97 H Absolute Lymphocytes (1.2-3.4) 10^3/uL 1.61 Absolute Monocytes (0.1-0.8) 10^3/uL 1.11 H Absolute Eosinophils (0.0-0.7) 10^3/uL 0.10 Absolute Basophils (0.0-0.2) 10^3/uL 0.22 H VBG Lactate (0.6-1.4) mmol/L 0.8 Sodium (136-145) mmol/L 137 Potassium (3.5-5.1) mmol/L 3.9 Chloride (98-107) mmol/L 102 Carbon Dioxide (21.0-32.0) mmol/L 26.6 Anion Gap (3-11) mmol/L 8.4 BUN (7-18) mg/dL 25 H Creatinine (0.70-1.30) mg/dL 1.3 Est GFR (CKD-EPI 2020) (mL/min/1.73m2) 59.84 Glucose (74-106) mg/dL 135 H Calcium (8.5-10.1) mg/dL 9.6 Total Bilirubin (0.2-1.0) mg/dL 0.3 AST (15-37) U/L 25 ALT (16-63) U/L 26 Alkaline Phosphatase (46-116) U/L 97 Total Protein (6.4-8.2) g/dL 8.3 H Albumin (3.4-5.0) g/dL 3.6 Lipase (73-393) U/L 158
[2022-08-17 20:56] LABS: Clarity Turbid (Clear); Specific Gravity 1.018 (1.005-1.025)
[2022-08-17 20:57] LABS: Bilirubin Color Interference (Negative); Blood Color Interference (Negative); Glucose Color Interference mg/dL (Negative); Ketones Color Interference mg/dL (Negative); Leukocyte Esterase Color Interference (Negative); Nitrite Color Interference (Negative); Urobilinogen Color Interference EU/dL (Up TO 0.2)
[2022-08-17 20:58] LABS: C & S Indicated? Yes; RBC >50 HPF (0-2)
[2022-08-17] MEDS: levoFLOXacin 500 MG, levoFLOXacin 250 MG 750 MG PO (21:39)
[2022-08-17] MEDS: Ondansetron O.D.T. 4 MG TABEF, 3 TABS/BTL PO (21:39)
== END 2022-08-17 21:39 | disposition home or self-care (01) ==
PROVIDERS: Emergency Medicine; Emergency Provider Emergency Medicine; PCP Nurse Practitioner
DX: R11.2 Nausea with vomiting, unspecified (principal); R19.7 Diarrhea, unspecified; F17.210 Nicotine dependence, cigarettes, uncomplicated
CPT/HCPCS: 80053; 83690; 96361; 96374; 99284; 81003; 81015; 83605; 85025; 87086; J2405

== ENCOUNTER 2022-08-20 10:59 | Inpatient (IN) | payer MEDICARE, SELFPAY ==
[2022-08-20] VITALS (8 sets, daily range): BP systolic 138–160; BP diastolic 80–87; PULSE 79–90; RESP 17–22; TEMP 36.5–36.8; O2SAT 90–95
--- NOTE | 2022-08-20 11:00 | DI.CT_ITS ---
Exam(s) CT ABDOMEN PELVIS W EXAM: CT ABDOMEN PELVIS W CLINICAL HISTORY: Concern for obstruction on plain film TECHNIQUE: Imaging Protocol: Axial computed tomography images with coronal and sagittal reformatted images were created and reviewed CONTRAST MATERIAL: Intravenous: Omnipaque 350 Contrast volume:100 mL Oral: No COMPARISON: CT CT ABDOMEN PELVIS WO/W from 02/14/2020 CR XR ABDOMEN FLAT PLATE from 08/20/2022 FINDINGS: ABDOMEN: Lung Bases: There is scarring in the lung bases. Coronary artery calcifications are present. Liver: Normal density. No measurable mass. Portal, Superior Mesenteric, and Splenic Veins: Unremarkable. Gallbladder and Biliary Tract: No radiodense calculus or dilation. Pancreas: Normal density, no abnormal calcifications or inflammatory process. Spleen: Normal. Adrenals: There is a stable left adrenal nodule. The right adrenal gland is unremarkable. This like ly reflects a small adenoma. Kidneys: Normal size, contour and axis. No radiodense stones or obstructive uropathy. There are small bilateral renal cysts. No follow-up is recommended. Abdominal Aorta: There is a 5 cm infrarenal abdominal aortic aneurysm. There is a 3.1 cm right commo n iliac artery aneurysm. There is a 3.3 cm left internal iliac artery aneurysm which is occluded. T his was occluded on the prior examination. There is extensive atherosclerosis. Bowel: There are dilated loops of small bowel and large bowel to the level of the distal transverse c olon. The distal transverse colon, sigmoid colon and rectum are of normal caliber. At the level of the transition the colon is collapsed. There is mild thickening of the wall of the colon. This may be due to underdistention on. Stricture or mass cannot be entirely excluded. No evidence of appendi citis. Peritoneal Cavity: There is a trace amount of free fluid in the dependent portion of the pelvis. No free air. Lymph Nodes: Within normal limits. Bones: Within normal limits for the patient's age. The patient has a right total hip replacement the re are marked degenerative changes seen in the left hip. Soft Tissues: There is a small fat containing umbilical hernia. PELVIS: Bladder: There is diffuse thickening of the wall of the urinary bladder. Reproductive Organs: There is an enlarged prostate gland. Lymph Nodes: Within normal limits. Bones: Within normal limits for the patient's age. IMPRESSION: 1. Findings suspicious for large bowel obstruction with a transition seen in the distal transverse co didier. Barium enema or colonoscopy is recommended for further evaluation. 2. Aneurysmal dilatation seen of the abdominal aorta, right common iliac artery and left internal pilar ac artery. These all have increased in size compared to the prior examination from 02/14/2020. 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 3. Prostatomegaly. 4. Diffuse thickening of the wall of the urinary bladder. Differential considerations include chroni c bladder outlet obstruction, neurogenic bladder, inflammatory/infectious cystitis or neoplasm. 5. Results of this exam have been verbally communicated with provider. RADIATION DOSE DELIVERED: 886.54mGy.cm Total DLP DATA REPOSITORY: All CT scans at this facility are submitted to the National Radiology Data Registry (NRDR) Dose Index Registry (DIR) with the [employer] (A[employer]). RADIATION OPTIMIZATION: All CT scans at this facility use at least one of these dose optimization te chniques: automated exposure control; mA and/or kV adjustment per patient size (includes targeted exa ms where dose is matched to clinical indication); or iterative reconstruction.
--- NOTE | 2022-08-20 11:20 | ED.GENADUL_ITS ---
Discharge Plan Disposition Patient Disposition: [facility] INPATIENT Condition: Serious Discharge Details Chief Complaint: Abd Prob Clinical Impression: Bowel obstruction Primary Care Provider: Hermila Hamilton ED Provider: Nabeel Roberson Home Meds and New Rx's Prescriptions: No Action amitriptyline 50 mg tablet 50 mg PO QHS Qty: 90 2RF Rx Instructions: Note dosage increase atorvastatin 20 mg tablet 20 mg PO HS diphenhydramine-acetaminophen [Tylenol PM Extra Strength] 25-500 mg tablet 1 tab PO QHS PRN tadalafil [Cialis] 5 mg tablet 5 mg PO HS Rx Instructions: Use for BPH s/s tramadol 50 mg tablet 50 mg PO Q6H PRN (Reason: pain) Qty: 15 0RF ondansetron 4 mg tablet,disintegrating 4 mg PO Q8H PRN (Reason: nausea and vomiting) Qty: 30 0RF aspirin 81 mg Capsule,Delayed Release(Dr/Ec) 81 mg PO DAILY Medical Decision Making 67-year-old gentleman who had a TURP procedure on , catheter pulled today, presents for concern of bowel obstruction after outpatient imaging. Reports lower abdominal pain, bloating, diarrhea. History of bowel obstruction status post surgery in the past. Plan is to obtain IV access, give IV fluid, obtain routine screening laboratory values and obtain CT imaging of the abdomen and pelvis with IV contrast Laboratory values reveal minimal leukocytosis of 11.86 hemoglobin 11.5 hematocrit 35.4 platelet count 251. Electrolytes unremarkable. Creatinine 1.3 with a GFR 59.84. Urinalysis large blood, greater than 50 red cells. Patient with recent TURP and catheter removed today. CT imaging reveals large bowel obstruction. NG tube placed No vomiting while under my care. Case discussed with surgery, Dr. Omer who is agreeable for admission. I will place transition orders This documentation was generated using NoteVaultation system, please disregard any oddities of phrase or misspellings. Medical Records Medical records reviewed: Yes I reviewed the patient's medical records. Imaging Data Radiologic Study: Attestation: I personally reviewed and interpreted this imaging study as follows: Imaging: CT Scan Radiologist's impression: This report is currently processing and HAS NOT BEEN OFFICIALLY SIGNED BY THE PHYSICIAN - ESTIMATED TIME OF APPROVAL IS 08/20/2022 13:11. Exam(s) CT ABDOMEN PELVIS W EXAM: CT ABDOMEN PELVIS W CLINICAL HISTORY: Concern for obstruction on plain film TECHNIQUE: Imaging Protocol: Axial computed tomography images with coronal and sagittal reformatted images were created and reviewed CONTRAST MATERIAL: Intravenous: Omnipaque 350 Contrast volume:100 mL Oral: No COMPARISON: CT CT ABDOMEN PELVIS WO/W from 02/14/2020 CR XR ABDOMEN FLAT PLATE from 08/20/2022 FINDINGS: ABDOMEN: Lung Bases: There is scarring in the lung bases. Coronary artery calcifications are present. Liver: Normal density. No measurable mass. Portal, Superior Mesenteric, and Splenic Veins: Unremarkable. Gallbladder and Biliary Tract: No radiodense calculus or dilation. Pancreas: Normal density, no abnormal calcifications or inflammatory process. Spleen: Normal. Adrenals: There is a stable left adrenal nodule. The right adrenal gland is unremarkable. This likely reflects a small adenoma. Kidneys: Normal size, contour and axis. No radiodense stones or obstructive uropathy. There are small bilateral renal cysts. No follow-up is recommended. Abdominal Aorta: There is a 5 cm infrarenal abdominal aortic aneurysm. There is a 3.1 cm right common iliac artery aneurysm. There is a 3.3 cm left internal iliac artery aneurysm which is occluded. This was occluded on the prior examination. There is extensive atherosclerosis. Bowel: There are dilated loops of small bowel and large bowel to the level of the distal transverse colon. The distal transverse colon, sigmoid colon and rectum are of normal caliber. At the level of the transition the colon is collapsed. There is mild thickening of the wall of the colon. This may be due to underdistention on. Stricture or mass cannot be entirely excluded. No evidence of appendicitis. Peritoneal Cavity: There is a trace amount of free fluid in the dependent portion of the pelvis. No free air. Lymph Nodes: Within normal limits. Bones: Within normal limits for the patient's age. The patient has a right total hip replacement there are marked degenerative changes seen in the left hip. Soft Tissues: There is a small fat containing umbilical hernia. PELVIS: Bladder: There is diffuse thickening of the wall of the urinary bladder. Reproductive Organs: There is an enlarged prostate gland. Lymph Nodes: Within normal limits. Bones: Within normal limits for the patient's age. IMPRESSION: 1. Findings suspicious for large bowel obstruction with a transition seen in the distal transverse colon. Barium enema or colonoscopy is recommended for further evaluation. 2. Aneurysmal dilatation seen of the abdominal aorta, right common iliac artery and left internal iliac artery. These all have increased in size compared to the prior examination from 02/14/2020. 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 3. Prostatomegaly. 4. Diffuse thickening of the wall of the urinary bladder. Differential considerations include chronic bladder outlet obstruction, neurogenic bladder, inflammatory/infectious cystitis or neoplasm. 5. Results of this exam have been verbally communicated with provider. Lab Data Lab results reviewed: Yes I reviewed the patient's lab results. Labs: 08/20/22 12:20 Urine - Reflex from Ua Urine Culture - Pending Laboratory Tests Range/Units 08/20/22 08/20/22 08/20/22 11:30 11:30 11:30 WBC (4.4-10.8) 10^3/uL 11.86 H RBC (4.36-5.78) 10^6/uL 3.83 L Hgb (13.5-17.5) g/dL 11.5 L Hct (40.0-50.0) % 35.4 L MCV (80-95) fL 92 MCH (27.0-33.0) pg 30.0 MCHC (32.0-36.0) % 32.5 RDW (11.8-14.1) % 14.0 Plt Count (130-400) 10^3/uL 251 MPV (8.0-11.0) fL 9.1 Immature Gran % 0.7 Neutrophils % 77.6 Lymphocytes % 11.9 Monocytes % 7.2 Eosinophils % 1.0 Basophils % 1.6 Nucleated RBC % (0.0-0.3) % 0.0 Absolute Neutrophils (1.2-6.7) 10^3/uL 9.20 H Absolute Lymphocytes (1.2-3.4) 10^3/uL 1.41 Absolute Monocytes (0.1-0.8) 10^3/uL 0.85 H Absolute Eosinophils (0.0-0.7) 10^3/uL 0.12 Absolute Basophils (0.0-0.2) 10^3/uL 0.19 VBG Lactate (0.6-1.4) mmol/L 0.9 Sodium (136-145) mmol/L 139 Potassium (3.5-5.1) mmol/L 3.6 Chloride (98-107) mmol/L 102 Carbon Dioxide (21.0-32.0) mmol/L 28.6 Anion Gap (3-11) mmol/L 8.4 BUN (7-18) mg/dL 24 H Creatinine (0.70-1.30) mg/dL 1.3 Est GFR (CKD-EPI 2020) (mL/min/1.73m2) 59.84 Glucose (74-106) mg/dL 106 Calcium (8.5-10.1) mg/dL 9.1 Total Bilirubin (0.2-1.0) mg/dL 0.3 AST (15-37) U/L 21 ALT (16-63) U/L 32 Alkaline Phosphatase (46-116) U/L 85 Total Protein (6.4-8.2) g/dL 7.5 Albumin (3.4-5.0) g/dL 3.4 Lipase (73-393) U/L 76 Urine Color (Yellow) Urine Clarity (Clear) Urine pH (5-8) Ur Specific [place] (1.005-1.025) Urine Protein (Negative) mg/dL Urine Ketones (Negative) mg/dL Urine Blood (Negative) Urine Nitrite (Negative) Urine Bilirubin (Negative) Urine Urobilinogen (Up TO 0.2) EU/dL Ur Leukocyte Esterase (Negative) Urine RBC (0-2) HPF Urine WBC (0-5) HPF Ur Epithelial Cells Urine Crystals Urine Bacteria Urine Mucus Ur Culture Indicated? Urine Glucose (Negative) mg/dL COVID-19 Source SARS-CoV-2 (PCR) (Negative) Range/Units 08/20/22 08/20/22 11:35 12:20 WBC (4.4-10.8) 10^3/uL RBC (4.36-5.78) 10^6/uL Hgb (13.5-17.5) g/dL Hct (40.0-50.0) % MCV (80-95) fL MCH (27.0-33.0) pg MCHC (32.0-36.0) % RDW (11.8-14.1) % Plt Count (130-400) 10^3/uL MPV (8.0-11.0) fL Immature Gran % Neutrophils % Lymphocytes % Monocytes % Eosinophils % Basophils % Nucleated RBC % (0.0-0.3) % Absolute Neutrophils (1.2-6.7) 10^3/uL Absolute Lymphocytes (1.2-3.4) 10^3/uL Absolute Monocytes (0.1-0.8) 10^3/uL Absolute Eosinophils (0.0-0.7) 10^3/uL Absolute Basophils (0.0-0.2) 10^3/uL VBG Lactate (0.6-1.4) mmol/L Sodium (136-145) mmol/L Potassium (3.5-5.1) mmol/L Chloride (98-107) mmol/L Carbon Dioxide (21.0-32.0) mmol/L Anion Gap (3-11) mmol/L BUN (7-18) mg/dL Creatinine (0.70-1.30) mg/dL Est GFR (CKD-EPI 2020) (mL/min/1.73m2) Glucose (74-106) mg/dL Calcium (8.5-10.1) mg/dL Total Bilirubin (0.2-1.0) mg/dL AST (15-37) U/L ALT (16-63) U/L Alkaline Phosphatase (46-116) U/L Total Protein (6.4-8.2) g/dL Albumin (3.4-5.0) g/dL Lipase (73-393) U/L Urine Color (Yellow) Yellow Urine Clarity (Clear) Sl Cloudy Urine pH (5-8) 6.0 Ur Specific [place] (1.005-1.025) >= 1.030 H Urine Protein (Negative) mg/dL >=300 H Urine Ketones (Negative) mg/dL Negative Urine Blood (Negative) Large H Urine Nitrite (Negative) Negative Urine Bilirubin (Negative) Negative Urine Urobilinogen (Up TO 0.2) EU/dL 0.2 Ur Leukocyte Esterase (Negative) Small H Urine RBC (0-2) HPF >50 H Urine WBC (0-5) HPF 10-20 H Ur Epithelial Cells Not Applicable Urine Crystals Not Applicable Urine Bacteria Not Applicable Urine Mucus Not Applicable Ur Culture Indicated? Yes Urine Glucose (Negative) mg/dL Negative COVID-19 Source Nasal/Nares SARS-CoV-2 (PCR) (Negative) Negative HPI General Mode of arrival: wheelchair . Date/Time Provider Initiated Documentation: 08/20/22 11:05 . Limitations to Documentation: no limitations . Information obtained by: patient and family . HPI Narrative: 67-year-old gentleman with a TURP last , seen by urology today, catheter removed, plain film concerning for ileus-small bowel obstruction, sent to the ER for further evaluation and likely admission for abdominal pain, abdominal bloating, loose stools. Patient reports she has felt this way since the day after his recent discharge from the hospital. He reports decreased p.o. intake. He denies recent illness or trauma, fever, chest pain, shortness of breath, vomiting, back pain. He reports mild nausea. Patient reports that several years ago he had similar symptoms status post a surgery which required admission. Related Data Home Medications Medication Instructions Recorded Confirmed atorvastatin 20 mg tablet 20 mg PO HS 01/31/20 08/20/22 diphenhydramine 25 1 tab PO QHS PRN 01/31/20 08/20/22 mg-acetaminophen 500 mg tablet (Tylenol PM Extra Strength) amitriptyline 50 mg tablet 50 mg PO QHS #90 tabs 01/29/22 08/20/22 tadalafil 5 mg tablet (Cialis) 5 mg PO HS 08/13/22 08/20/22 tramadol 50 mg tablet 50 mg PO Q6H PRN pain #15 tabs 08/16/22 08/20/22 ondansetron 4 mg disintegrating 4 mg PO Q8H PRN nausea and 08/17/22 08/20/22 tablet vomiting #30 tabs aspirin 81 mg capsule,delayed 81 mg PO DAILY 08/20/22 08/20/22 release Previous Rx's Medication Instructions Recorded amitriptyline 50 mg tablet 50 mg PO QHS #90 tabs 01/29/22 tramadol 50 mg tablet 50 mg PO Q6H PRN pain #15 tabs 08/16/22 ondansetron 4 mg disintegrating 4 mg PO Q8H PRN nausea and 08/17/22 tablet vomiting #30 tabs Allergies Allergy/AdvReac Type Severity Reaction Status Date / Time finasteride Allergy testicular Verified 08/15/22 06:27 discomfort blueberry AdvReac Vomiting Unverified 08/15/22 06:27 General Stated Complaint: Abd Prob MABEL: 3 Review of Systems Constitutional Constitutional: Denies fever(s) and Denies weakness Cardiovascular Cardiovascular: Denies chest pain and Denies dyspnea Respiratory Respiratory: Denies cough and Denies dyspnea Gastrointestinal Gastrointestinal: Reports abdominal pain, Denies melena, Denies hematochezia, Denies constipation, Reports diarrhea, Reports nausea and Denies vomiting Musculoskeletal Musculoskeletal: Denies back pain Integumentary/Breasts Skin/Breast: Denies rash Neurologic Neurologic: Denies weakness Hematologic/Lymphatic Hematologic/Lymphatic: Denies easy bleeding and Denies easy bruising PFSH All Active Problems (Updated 08/20/22 @ 14:10 by SHONNA Alejandra) Bowel obstruction (Acute) Nausea & vomiting (Acute) BPH w urinary obs/LUTS (Acute) Microscopic hematuria (Acute) Medical History 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 Basal cell carcinoma Dysuria Iliac artery aneurysm, bilateral F[place] [facility] [place] Left hip pain Osteoarthritis of hip Surgical History History of appendectomy History of hernia repair Double hernia History of right hip replacement S/P skin biopsy head/neck Status post Mohs surgery Social History Smoking/Tobacco Use Status: Current-Occasional Tobacco Type: cigarettes Smoking risk assessment performed?: Yes Alcohol Intake: never Drug use: Never Substance use type: does not use Do you feel safe at home: Yes Do you feel safe in your relationship?: Yes Additional Social history: Unable to assess privately Exam Const General: cooperative, healthy appearing, comfortable and no acute distress Orientation: alert and awake [facility] Head: normal to inspection, normocephalic and atraumatic Face and sinus: normal facial exam Mouth: moist mucous membranes Eyes Conjunctivae: conjunctivae normal Neck Neck: normal visual inspection, full ROM, trachea midline and supple Resp Effort & Inspection: normal respiratory effort and able to speak in complete sentences Auscultation: clear to auscultation bilaterally Cardio Rate: regular rate Rhythm: regular rhythm GI Inspection: distended and obesity Palpation: not firm, no guarding, no pulsatile masses and tender (Mild, lower) Auscultation: hypoactive bowel sounds Back/Spine/Pelvis Back: No back tenderness Skin General skin exam: no rashes or lesions noted Neuro General: patient alert, patient awake, moves all extremities and no focal motor deficits Cognition: normal cognition Speech: speech normal Sensory Exam: no sensory deficits noted Psych Appearance: grossly normal Mental Status: mental status grossly normal Course Vital Signs Vital signs: Vital Signs Pulse 88 08/20/22 11:06 Respiratory Rate 08/20/22 11:06 Blood Pressure 138/83 08/20/22 11:06 Pulse Oximetry 95 08/20/22 11:06 Pulse 88 08/20/22 11:06 Respiratory Rate 08/20/22 11:06 Respiratory Effort Non-Labored 08/20/22 11:16 Blood Pressure 138/83 08/20/22 11:06 Pulse Oximetry 95 08/20/22 11:06 Oxygen Delivery Method Room Air 08/20/22 11:06 Oxygen Flow Rate 0 08/20/22 11:06 Pain Level 3 08/20/22 11:14
[2022-08-20 11:34] LABS: Lactate 0.9 mmol/L (0.6-1.4)
[2022-08-20 11:37] LABS: Source Nasal/Nares
[2022-08-20 11:38] LABS: Abs Immature Grans 0.08 10^3/uL (0.0-0.06); Absolute Basophil Count 0.19 10^3/uL (0.0-0.2); Absolute Eosinophil Count 0.12 10^3/uL (0.0-0.7); Absolute Lymphocyte Count 1.41 10^3/uL (1.2-3.4); Absolute Monocyte Count 0.85 10^3/uL (0.1-0.8); Basophils % 1.6; HCT 35.4 % (40.0-50.0); HGB 11.5 g/dL (13.5-17.5); Immature Grans % 0.7; Lymphocytes % 11.9; MCHC 32.5 % (32.0-36.0); MCV 92 fL (80-95); MPV 9.1 fL (8.0-11.0); Monocytes % 7.2; Neutrophils % 77.6; Platelet Count 251 10^3/uL (130-400); RBC 3.83 10^6/uL (4.36-5.78); RDW-SD 47.1 fL; WBC 11.86 10^3/uL (4.4-10.8)
[2022-08-20] MEDS: Normal Saline 1,000 ML 1000 ML IV (11:45)
[2022-08-20 11:50] LABS: ALT 32 U/L (16-63); AST 21 U/L (15-37); Albumin 3.4 g/dL (3.4-5.0); Alkaline Phosphatase 85 U/L (46-116); Anion Gap 8.4 mmol/L (3-11); BUN 24 mg/dL (7-18); Bilirubin, Total 0.3 mg/dL (0.2-1.0); CO2 28.6 mmol/L (21.0-32.0); CREATININE 1.3 mg/dL (0.70-1.30); Calcium 9.1 mg/dL (8.5-10.1); Chloride 102 mmol/L (98-107); Estimated GFR 59.84 (mL/min/1.73m2); Glucose 106 mg/dL (74-106); Lipase 76 U/L (73-393); Potassium 3.6 mmol/L (3.5-5.1); Sodium 139 mmol/L (136-145); Total Protein 7.5 g/dL (6.4-8.2)
[2022-08-20 12:09] LABS: COVID-19 PCR Negative (Negative)
[2022-08-20] MEDS: Omnipaque 350 MG/ML 500 ML BTL-Imaging package IJ (12:36)
[2022-08-20] MEDS: Normal Saline Flush 10 ML SYR IVP ×2 (12:36→16:21)
[2022-08-20 12:51] LABS: Bilirubin Negative (Negative); Blood Large (Negative); Clarity Sl Cloudy (Clear); Glucose Negative (Negative); Ketones Negative (Negative); Leukocyte Esterase Small (Negative); Nitrite Negative (Negative); Specific Gravity >= 1.030 (1.005-1.025); Urobilinogen 0.2 EU/dL (Up TO 0.2)
[2022-08-20 12:58] LABS: C & S Indicated? Yes; RBC >50 HPF (0-2)
[2022-08-20 13:25] LABS: C-Reactive Protein 0.92 mg/dL (0.0-0.3); Magnesium 1.6 mg/dL (1.8-2.4)
--- NOTE | 2022-08-20 13:45 | DI.RAD_ITS ---
Exam(s) XR PORTABLE CHEST AP POST LINE EXAM: XR PORTABLE CHEST AP POST LINE CLINICAL HISTORY: confirm NG tube TECHNIQUE: 2D digital imaging was performed of the chest. One image was obtained. An AP view was ob tained. COMPARISON: CR XR ABDOMEN FLAT PLATE from 08/20/2022 FINDINGS: MEDIASTINUM: Normal. HEART: Normal. PULMONARY VASCULATURE: Normal. LUNGS: Atelectasis in the left lung base. The right lung is clear. PLEURAL SPACE: No pleural effusion or pneumothorax. BONE:Within normal limits for the patient's age. OTHER FINDINGS:The tip of the nasogastric tube is seen in the fundus of the stomach. IMPRESSION: 1. Left basilar atelectasis. 2. The tip of the nasogastric tube is seen in the fundus of the stomach. DATA REPOSITORY: RADIATION DOSE DELIVERED:
[2022-08-20 13:50] LABS: Procalcitonin < 0.1 ng/mL
[2022-08-20] MEDS: Lidocaine 2% Jelly 6 ML SYR (14:22)
[2022-08-20] MEDS: Lactated Ringers 1,000 ML 100 ML IV (16:21)
--- NOTE | 2022-08-20 16:38 | HPE_ITS ---
Date of service: 08/20/22 Time of Service: 16:38 Assessment and Plan Assessment and plan (1) Colon obstruction: Status: Acute Assessment and plan: - NG tube decompression -GI and DVT prophylaxis. -I-S Patient has a history of prolonged ileus after anesthesia CT scan notes a transition point within the-transverse colon. Patient has had a colonoscopy in the past within the last 2 to 3 years and it was normal per patient. We are attempting to get the records from [facility]. There does not appear to be a large mass in the colon. It is unclear what is causing the obstructive symptoms at this time -We will attempt a Gastrografin challenge -Add as unsuccessful then consider colonoscopy in a.m. I did discuss this with Dr. Hagan and she is amendable (2) 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: (3) Basal cell carcinoma: (4) S/P TURP (status post transurethral resection of prostate): Status: Acute Assessment and plan: - Continue on IV Cipro post TURP -We will also check C. difficile as he has been on antibiotics (5) Umbilical hernia: Status: Acute Assessment and plan: - This does not appear to be the cause of the obstruction. 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 Patient notes that since he woke up from his TURP, that he has been having abdominal distention and nausea from his TURP. He has become aggressively more distended and having more pain. He has been having liquid stools. Surgery was on 08/16. He was in the ER on 08/17 with similar signs and symptoms. He was disc harged to home. He came into urology clinic today for follow-up and was having nausea and vomiting and abdominal pain. Flatplate of the abdomen was ordered which showed possible ileus versus SBO and he was sent to the ER. I did personally review his CT scans. They are currently showing a obstruction versus ileus. The radiologist notes that there is a transition point in the transverse colon. Patient has a remote history of open appendectomy as a child. It was not ruptured. Prior to surgery he notes his bowels were formed and regular and daily. He denied any pain or difficulty swallowing. He has denied any weight loss. He has not noticed any blood in his stools. He does not routinely have abdominal pain. His bowels are regular. Patient does note that after a right hip replacement he was at [facility] for 21 days because he had an ileus. We are attempting to get the records from [facility]. He notes he has not had any appetite. He denies any fever or chills. He states he has been moving his bowels but it is only been liquid.(C. difficile is pending at this time. He has been on Levaquin postop). He has never had C. difficile before. He has had a colonoscopy in the past. It was 2 to 3 years ago at [facility]. It was a normal colonoscopy as far as the patient is concerned. He has never had bowel obstructions in the past except for after the right hip replacement. He denies any trauma other than the recent surgery. He denies any travel outside of the state. No one else at home is ill. Currently his abdomen is distended. He has minimal bowel sounds. He is mildly tender all over but does not exhibit peritonitis. His vital signs are stable. 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 (Acute) Coronary artery calcification seen on CAT scan (Acute) Colon obstruction (Acute) per CT vs ileus S/P TURP (status post transurethral resection of prostate) (Acute) Umbilical hernia (Acute) Iliac artery occlusion, left (Acute) Bowel obstruction (Acute) Nausea & vomiting (Acute) BPH w urinary obs/LUTS (Acute) Microscopic hematuria (Acute) Medical History 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 Basal cell carcinoma Dysuria Iliac artery aneurysm, bilateral F/U @ [facility] [place] 04/04/2022 Left hip pain Osteoarthritis of hip Surgical History History of appendectomy History of hernia repair Double hernia History of right hip replacement S/P skin biopsy head/neck Status post Mohs surgery Social History Smoking/Tobacco Use Status: Current-Occasional Tobacco Type: cigarettes Smoking risk assessment performed?: Yes Alcohol Intake: never Drug use: Never Substance use type: does not use Do you feel safe at home: Yes Do you feel safe in your relationship?: Yes Additional Social history: Unable to assess privately Meds Allergies and Home Medications Allergies Allergy/AdvReac Type Severity Reaction Status Date / Time finasteride Allergy testicular Verified 08/15/22 06:27 discomfort blueberry AdvReac Vomiting Unverified 08/15/22 06:27 Home Medications Medication Instructions Recorded Confirmed Type atorvastatin 20 mg tablet 20 mg PO HS 01/31/20 08/20/22 History diphenhydramine 25 1 tab PO QHS PRN 01/31/20 08/20/22 History mg-acetaminophen 500 mg tablet (Tylenol PM Extra Strength) amitriptyline 50 mg tablet 50 mg PO QHS #90 tabs 01/29/22 08/20/22 Rx tadalafil 5 mg tablet (Cialis) 5 mg PO HS 08/13/22 08/20/22 History tramadol 50 mg tablet 50 mg PO Q6H PRN pain #15 tabs 08/16/22 08/20/22 Rx ondansetron 4 mg disintegrating 4 mg PO Q8H PRN nausea and 08/17/22 08/20/22 Rx tablet vomiting #30 tabs aspirin 81 mg capsule,delayed 81 mg PO DAILY 08/20/22 08/20/22 History release Exam Const General: cooperative, healthy appearing and no acute distress Orientation: alert, awake and oriented x3 Eyes General: appearance normal, both eyes and all related structures Other: No jaundice/sclera are clear Postsurgical changes from prior skin cancer surgery right cheek Edentulous NG tube in place Neck Neck: no JVD Resp Effort & Inspection: normal respiratory effort and able to speak in complete sentences Auscultation: clear to auscultation bilaterally Cardio Rate: regular rate Rhythm: regular rhythm GI Auscultation: hypoactive bowel sounds Other: Distended with minimal bowel sounds. He notes he is more tender in the lower part of the abdomen. Results Labs Result diagrams: 08/20/22 11:30 08/20/22 11:30 Labs: Laboratory Results - last 24 hr 08/20/22 08/20/22 08/20/22 11:30 11:30 11:30 WBC 11.86 H RBC 3.83 L Hgb 11.5 L Hct 35.4 L MCV 92 MCH 30.0 MCHC 32.5 RDW 14.0 Plt Count 251 MPV 9.1 Immature Gran % 0.7 Neutrophils % 77.6 Lymphocytes % 11.9 Monocytes % 7.2 Eosinophils % 1.0 Basophils % 1.6 Nucleated RBC % 0.0 Absolute Neutrophils 9.20 H Absolute Lymphocytes 1.41 Absolute Monocytes 0.85 H Absolute Eosinophils 0.12 Absolute Basophils 0.19 VBG Lactate 0.9 Sodium 139 Potassium 3.6 Chloride 102 Carbon Dioxide 28.6 Anion Gap 8.4 BUN 24 H Creatinine 1.3 Est GFR (CKD-EPI 2020) 59.84 Glucose 106 Calcium 9.1 Magnesium Total Bilirubin 0.3 AST 21 ALT 32 Alkaline Phosphatase 85 C-Reactive Protein Total Protein 7.5 Albumin 3.4 Lipase 76 Procalcitonin Urine Color Urine Clarity Urine pH Ur Specific [place] Urine Protein Urine Ketones Urine Blood Urine Nitrite Urine Bilirubin Urine Urobilinogen Ur Leukocyte Esterase Urine RBC Urine WBC Ur Epithelial Cells Urine Crystals Urine Bacteria Urine Mucus Ur Culture Indicated? Urine Glucose COVID-19 Source SARS-CoV-2 (PCR) 08/20/22 08/20/22 08/20/22 11:30 11:30 11:35 WBC RBC Hgb Hct MCV MCH MCHC RDW Plt Count MPV Immature Gran % Neutrophils % Lymphocytes % Monocytes % Eosinophils % Basophils % Nucleated RBC % Absolute Neutrophils Absolute Lymphocytes Absolute Monocytes Absolute Eosinophils Absolute Basophils VBG Lactate Sodium Potassium Chloride Carbon Dioxide Anion Gap BUN Creatinine Est GFR (CKD-EPI 2020) Glucose Calcium Magnesium 1.6 L Total Bilirubin AST ALT Alkaline Phosphatase C-Reactive Protein 0.92 H Total Protein Albumin Lipase Procalcitonin < 0.1 Urine Color Urine Clarity Urine pH Ur Specific [place] Urine Protein Urine Ketones Urine Blood Urine Nitrite Urine Bilirubin Urine Urobilinogen Ur Leukocyte Esterase Urine RBC Urine WBC Ur Epithelial Cells Urine Crystals Urine Bacteria Urine Mucus Ur Culture Indicated? Urine Glucose COVID-19 Source Nasal/Nares SARS-CoV-2 (PCR) Negative 08/20/22 12:20 WBC RBC Hgb Hct MCV MCH MCHC RDW Plt Count MPV Immature Gran % Neutrophils % Lymphocytes % Monocytes % Eosinophils % Basophils % Nucleated RBC % Absolute Neutrophils Absolute Lymphocytes Absolute Monocytes Absolute Eosinophils Absolute Basophils VBG Lactate Sodium Potassium Chloride Carbon Dioxide Anion Gap BUN Creatinine Est GFR (CKD-EPI 2020) Glucose Calcium Magnesium Total Bilirubin AST ALT Alkaline Phosphatase C-Reactive Protein Total Protein Albumin Lipase Procalcitonin Urine Color Yellow Urine Clarity Sl Cloudy Urine pH 6.0 Ur Specific [place] >= 1.030 H Urine Protein >=300 H Urine Ketones Negative Urine Blood Large H Urine Nitrite Negative Urine Bilirubin Negative Urine Urobilinogen 0.2 Ur Leukocyte Esterase Small H Urine RBC >50 H Urine WBC 10-20 H Ur Epithelial Cells Not Applicable Urine Crystals Not Applicable Urine Bacteria Not Applicable Urine Mucus Not Applicable Ur Culture Indicated? Yes Urine Glucose Negative COVID-19 Source SARS-CoV-2 (PCR) Last Vital Signs Temp 36.5 C 08/20/22 15:30 Pulse 90 08/20/22 15:30 Resp 22 08/20/22 15:30 BP 148/84 H 08/20/22 15:30 Pulse Ox 94 08/20/22 15:30 Comprehensive Metabolic Panel Sodium 139 mmol/L (136-145) 08/20/22 11:30 Potassium 3.6 mmol/L (3.5-5.1) 08/20/22 11:30 Chloride 102 mmol/L (98-107) 08/20/22 11:30 Carbon Dioxide 28.6 mmol/L (21.0-32.0) 08/20/22 11:30 BUN 24 mg/dL (7-18) H 08/20/22 11:30 Creatinine 1.3 mg/dL (0.70-1.30) 08/20/22 11:30 Glucose 106 mg/dL (74-106) 08/20/22 11:30 Calcium 9.1 mg/dL (8.5-10.1) 08/20/22 11:30 Total Bilirubin 0.3 mg/dL (0.2-1.0) 08/20/22 11:30 ALT 32 U/L (16-63) 08/20/22 11:30 AST 21 U/L (15-37) 08/20/22 11:30 Alkaline Phosphatase 85 U/L (46-116) 08/20/22 11:30 Total Protein 7.5 g/dL (6.4-8.2) 08/20/22 11:30 Albumin 3.4 g/dL (3.4-5.0) 08/20/22 11:30 Diabetes results Glucose 106 mg/dL (74-106) 08/20/22 BUN 24 mg/dL (7-18) H 08/20/22 Creatinine 1.3 mg/dL (0.70-1.30) 08/20/22 Est GFR (CKD-EPI 2020) 59.84 (mL/min/1.73m2) 08/20/22 Sodium 139 mmol/L (136-145) 08/20/22 Potassium 3.6 mmol/L (3.5-5.1) 08/20/22 Chloride 102 mmol/L (98-107) 08/20/22 Carbon Dioxide 28.6 mmol/L (21.0-32.0) 08/20/22 Calcium 9.1 mg/dL (8.5-10.1) 08/20/22 AST 21 U/L (15-37) 08/20/22 ALT 32 U/L (16-63) 08/20/22 Total Protein 7.5 g/dL (6.4-8.2) 08/20/22 Albumin 3.4 g/dL (3.4-5.0) 08/20/22 Stool tests (P) No Data to Display CBC White Blood Count 11.86 10^3/uL (4.4-10.8) H 08/20/22 Red Blood Count 3.83 10^6/uL (4.36-5.78) L 08/20/22 Hemoglobin 11.5 g/dL (13.5-17.5) L 08/20/22 Hematocrit 35.4 % (40.0-50.0) L 08/20/22 Mean Corpuscular Volume 92 fL (80-95) 08/20/22 Mean Corpuscular Hemoglobin 30.0 pg (27.0-33.0) 08/20/22 Mean Corpuscular Hemoglobin Concent 32.5 % (32.0-36.0) 07/26 06/14 Red Cell Distribution Width 14.0 % (11.8-14.1) 08/20/22 Platelet Count 251 10^3/uL (130-400) 08/20/22 Mean Platelet Volume 9.1 fL (8.0-11.0) 08/20/22 Neutrophils % 77.6 08/20/22 Lymphocytes % 11.9 08/20/22 Monocytes % 7.2 08/20/22 Eosinophils % 1.0 08/20/22 Basophils % 1.6 08/20/22 Immature Granulocytes % 0.7 08/20/22
[2022-08-20] MEDS: FAMOTIDINE 20 MG in Normal Saline 100 ML 400 MG IVPB (17:19)
[2022-08-20] MEDS: Enoxaparin 40 MG/0.4 ML SYR SC (17:26)
[2022-08-20] MEDS: MAGNESIUM SULFATE 1 GM/100 ML BAG IVPB (18:21)
[2022-08-20] MEDS: Gastrografin 120 ML BTL PO (18:23)
[2022-08-20] MEDS: CIPROFLOXACIN 400 MG/200 ML BAG 200 MG IVPB (19:49)
[2022-08-20 22:51] LABS: Lab Add On Test DONE
[2022-08-21] VITALS (7 sets, daily range): BP systolic 108–160; BP diastolic 62–81; PULSE 74–88; RESP 17–20; TEMP 36.3–37.1; O2SAT 91–97
[2022-08-21 04:38] LABS: C Diff PCR Negative (Negative)
[2022-08-21] MEDS: FAMOTIDINE 20 MG in Normal Saline 100 ML 400 MG IVPB (04:53)
[2022-08-21] MEDS: Lactated Ringers 1,000 ML 100 ML IV (04:54)
--- NOTE | 2022-08-21 07:00 | DI.RAD_ITS ---
Exam(s) XR ABDOMEN FLAT UPRIGHT EXAM: XR ABDOMEN FLAT UPRIGHT CLINICAL HISTORY: colon obs TECHNIQUE: COMPARISON: CT CT ABDOMEN PELVIS W from 08/20/2022 CR XR ABDOMEN FLAT PLATE from 08/20/2022 FINDINGS: There is ingested contrast material which now predominantly lies in the colon. Moderate small bowel dilatation again noted mid abdomen, decreased from yesterday's CT and radiographic examinations. The re is a small quantity contrast material in the rectum. IMPRESSION: The appearance is suggestive of improvement in partial small-bowel obstruction, some mid abdominal sm all bowel dilatation persists. RADIATION DOSE DELIVERED: Total DLP
--- NOTE | 2022-08-21 07:25 | PGE_ITS ---
Date of Service Date of service: 08/21/22 Time of Service: 07:25 Assessment and Plan Assessment and plan (1) Colon obstruction: Status: Acute Assessment and plan: - NG tube decompression -GI and DVT prophylaxis. -I-S Patient has a history of prolonged ileus after anesthesia CT scan notes a transition point within the-transverse colon. Patient has had a colonoscopy in the past within the last 2 to 3 years and it was normal per patient. We are attempting to get the records from [facility]. There does not appear to be a large mass in the colon. It is unclear what is causing the obstructive symptoms at this time Awaiting results of XRAY this am to see if patient needs colo (2) S/P TURP (status post transurethral resection of prostate): Status: Acute Assessment and plan: - Continue on IV Cipro post TURP -We will also check C. difficile as he has been on antibiotics (3) Umbilical hernia: Status: Acute Assessment and plan: - This does not appear to be the cause of the obstruction. (4) Nausea & vomiting: Status: Acute Assessment and plan: resolved Subjective Subjective Interval history since last seen: Mr. Dean is feeling better this am. He is passing flatus and has had a small BM. XRAYs are pending for this am. NG output is clear Exam Const General: comfortable and no acute distress Orientation: alert and oriented x3 HENMT Head: normocephalic and atraumatic Resp Effort & Inspection: normal respiratory effort Auscultation: clear to auscultation bilaterally Cardio Rate: regular rate Rhythm: regular rhythm GI Inspection: normal to inspection and obesity Palpation: soft and nontender Auscultation: hypoactive bowel sounds Objective Last Vital Signs Temp 98.2 F 08/21/22 04:59 Pulse 76 08/21/22 04:59 Resp 17 08/21/22 04:59 BP 151/81 H 08/21/22 04:59 Pulse Ox 91 L 08/21/22 04:59 Laboratory Results - last 24 hr 08/20/22 08/20/22 08/20/22 11:30 11:30 11:30 WBC 11.86 H RBC 3.83 L Hgb 11.5 L Hct 35.4 L MCV 92 MCH 30.0 MCHC 32.5 RDW 14.0 Plt Count 251 MPV 9.1 Immature Gran % 0.7 Neutrophils % 77.6 Lymphocytes % 11.9 Monocytes % 7.2 Eosinophils % 1.0 Basophils % 1.6 Nucleated RBC % 0.0 Absolute Neutrophils 9.20 H Absolute Lymphocytes 1.41 Absolute Monocytes 0.85 H Absolute Eosinophils 0.12 Absolute Basophils 0.19 VBG Lactate 0.9 Sodium 139 Potassium 3.6 Chloride 102 Carbon Dioxide 28.6 Anion Gap 8.4 BUN 24 H Creatinine 1.3 Est GFR (CKD-EPI 2020) 59.84 Glucose 106 Calcium 9.1 Magnesium Total Bilirubin 0.3 AST 21 ALT 32 Alkaline Phosphatase 85 C-Reactive Protein Total Protein 7.5 Albumin 3.4 Lipase 76 Procalcitonin Urine Color Urine Clarity Urine pH Ur Specific [place] Urine Protein Urine Ketones Urine Blood Urine Nitrite Urine Bilirubin Urine Urobilinogen Ur Leukocyte Esterase Urine RBC Urine WBC Ur Epithelial Cells Urine Crystals Urine Bacteria Urine Mucus Ur Culture Indicated? Urine Glucose Stl C.difficile Tox PCR COVID-19 Source SARS-CoV-2 (PCR) Add-On Test Request 08/20/22 08/20/22 08/20/22 11:30 11:30 11:35 WBC RBC Hgb Hct MCV MCH MCHC RDW Plt Count MPV Immature Gran % Neutrophils % Lymphocytes % Monocytes % Eosinophils % Basophils % Nucleated RBC % Absolute Neutrophils Absolute Lymphocytes Absolute Monocytes Absolute Eosinophils Absolute Basophils VBG Lactate Sodium Potassium Chloride Carbon Dioxide Anion Gap BUN Creatinine Est GFR (CKD-EPI 2020) Glucose Calcium Magnesium 1.6 L Total Bilirubin AST ALT Alkaline Phosphatase C-Reactive Protein 0.92 H Total Protein Albumin Lipase Procalcitonin < 0.1 Urine Color Urine Clarity Urine pH Ur Specific [place] Urine Protein Urine Ketones Urine Blood Urine Nitrite Urine Bilirubin Urine Urobilinogen Ur Leukocyte Esterase Urine RBC Urine WBC Ur Epithelial Cells Urine Crystals Urine Bacteria Urine Mucus Ur Culture Indicated? Urine Glucose Stl C.difficile Tox PCR COVID-19 Source Nasal/Nares SARS-CoV-2 (PCR) Negative Add-On Test Request 08/20/22 08/20/22 08/21/22 12:20 Unknown 02:30 WBC RBC Hgb Hct MCV MCH MCHC RDW Plt Count MPV Immature Gran % Neutrophils % Lymphocytes % Monocytes % Eosinophils % Basophils % Nucleated RBC % Absolute Neutrophils Absolute Lymphocytes Absolute Monocytes Absolute Eosinophils Absolute Basophils VBG Lactate Sodium Potassium Chloride Carbon Dioxide Anion Gap BUN Creatinine Est GFR (CKD-EPI 2020) Glucose Calcium Magnesium Total Bilirubin AST ALT Alkaline Phosphatase C-Reactive Protein Total Protein Albumin Lipase Procalcitonin Urine Color Yellow Urine Clarity Sl Cloudy Urine pH 6.0 Ur Specific [place] >= 1.030 H Urine Protein >=300 H Urine Ketones Negative Urine Blood Large H Urine Nitrite Negative Urine Bilirubin Negative Urine Urobilinogen 0.2 Ur Leukocyte Esterase Small H Urine RBC >50 H Urine WBC 10-20 H Ur Epithelial Cells Not Applicable Urine Crystals Not Applicable Urine Bacteria Not Applicable Urine Mucus Not Applicable Ur Culture Indicated? Yes Urine Glucose Negative Stl C.difficile Tox PCR Negative COVID-19 Source SARS-CoV-2 (PCR) Add-On Test Request DONE
[2022-08-21 08:22] LABS: Anion Gap 8.4 mmol/L (3-11); BUN 19 mg/dL (7-18); CO2 28.6 mmol/L (21.0-32.0); CREATININE 1.1 mg/dL (0.70-1.30); Calcium 8.5 mg/dL (8.5-10.1); Chloride 106 mmol/L (98-107); Estimated GFR 73.12 (mL/min/1.73m2); Glucose 97 mg/dL (74-106); Magnesium 1.7 mg/dL (1.8-2.4); Potassium 3.2 mmol/L (3.5-5.1); Sodium 143 mmol/L (136-145)
[2022-08-21] MEDS: CIPROFLOXACIN 400 MG/200 ML BAG 200 MG IVPB ×2 (08:54→20:11)
--- NOTE | 2022-08-21 09:54 | PDOC.CMIN ---
- If Service Date Differs Date of service: 08/21/22 Time of Service: 09:55 Care Management Initial Assess REASON FOR HOSPITALIZATION:: Bowel Obstruction PAST MEDICAL HISTORY/PAST SURGICAL HISTORY:: All Active Problems (Updated 08/20/22 @ 23:05 by Carmen Omer DO). Former smoker (Acute). Atherosclerosis of aortic bifurcation and common iliac arteries (Acute). Coronary artery calcification seen on CAT scan (Acute). Colon obstruction (Acute). per CT. vs ileus. S/P TURP (status post transurethral resection of prostate) (Acute). Umbilical hernia (Acute). Iliac artery occlusion, left (Acute). Bowel obstruction (Acute). Nausea & vomiting (Acute). BPH w urinary obs/LUTS (Acute). Microscopic hematuria (Acute). Medical History . 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 Basal cell carcinoma. Dysuria. Iliac artery aneurysm, bilateral. F/U @ [facility] 04/04/2022. Left hip pain. Osteoarthritis of hip. Surgical History . History of appendectomy. History of hernia repair. Double hernia. History of right hip replacement. S/P skin biopsy. head/neck. Status post Mohs surgery PREVIOUS FUNCTIONAL STATUS/SOCIAL/FAMILY SUPPORTS:: Juan lives in [place], [place] with his Diane. He is active and independent at baseline. 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 CURRENT FUNCTIONAL STATUS:: Juan was sitting up in his chair visiting with his when CM met with him. He is alert, oriented and easy to engage in conversation. He is very appreciative of the medical care he's receiving and values the Urology Team. ADVANCE DIRECTIVES:: None on file. Has patient been provided with info about the portal/API?: Yes Did the patient sign up for the portal?: No CODE STATUS:: Full Code INSURANCE COVERAGE / FINANCIAL ISSUES:: AARP. Medicare CURRENT HOME/COMMUNITY SERVICES/EQUIPMENT:: None PRIMARY CARE PHYSICIAN:: Hermila Hamilton POTENTIAL DISCHARGE NEEDS:: Discharge plan of care, follow up appointments with PCP and Urology. PATIENT/FAMILY EDUCATION NEEDS:: Review discharge instructions, limitations, medications and plan to follow up with community providers. Discuss ask me three. TRANSPORTATION:: Via private vehicle with family. PLAN:: Anticipate Juan will discharge home via private vehicle with family when medically ready. He will follow up with his community providers and discharge plan of care as prescribed.
--- NOTE | 2022-08-21 10:33 | CHAPLAIN ---
Juan and his are from [place], [place]. He was in bed and has GI tube in so isn't able to eat or drink, no sips of water or ice chips, he said. His is with him. 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
[2022-08-21] MEDS: Normal Saline Flush 10 ML SYR IVP (16:56)
[2022-08-21] MEDS: FAMOTIDINE 20 MG in Normal Saline 100 ML 200 MG IVPB (16:57)
--- NOTE | 2022-08-21 16:57 | PHA.REVIEW2 ---
Pharmacy Admission Review - Admission Clinical Review (Last Reviewed 08/20/22 @ 13:13 by SHONNA Alejandra) Former smoker (Acute) Atherosclerosis of aortic bifurcation and common iliac arteries (Acute) Coronary artery calcification seen on CAT scan (Acute) Colon obstruction (Acute) S/P TURP (status post transurethral resection of prostate) (Acute) Umbilical hernia (Acute) Iliac artery occlusion, left (Acute) Bowel obstruction (Acute) Nausea & vomiting (Acute) BPH w urinary obs/LUTS (Acute) Microscopic hematuria (Acute) finasteride Allergy (Verified 08/15/22 06:27) testicular discomfort blueberry Adverse Reaction (Unverified 08/15/22 06:27) Vomiting Resuscitation Status Full Code Height 6 ft Weight 84.822 kg - Renal Dosing Renal Dosing: BUN 19 mg/dL (7-18) H 08/21/22 07:04 Creatinine 1.1 mg/dL (0.70-1.30) 08/21/22 07:04 Medications needing adjustments: Reviewed (crcl = 77, no adjustments needed) - Anticoagulation Anticoagulation: Hgb 11.5 g/dL (13.5-17.5) L 08/20/22 11:30 Hct 35.4 % (40.0-50.0) L 08/20/22 11:30 Plt Count 251 10^3/uL (130-400) 08/20/22 11:30 Creatinine 1.1 mg/dL (0.70-1.30) 08/21/22 07:04 DVT Prophylaxis: Reviewed Medications: Enoxaparin (enoxaparin 40 mg daily) Therapeutic Anticoagulation: N/A - Opiate Usage Evaluate Pain Scale/Pains Meds: Reviewed (morphine 2 mg q1h prn ordered, has not received any) - Relevant Labs Sodium 143 mmol/L (136-145) 08/21/22 07:04 Potassium 3.2 mmol/L (3.5-5.1) L 08/21/22 07:04 Chloride 106 mmol/L (98-107) 08/21/22 07:04 Magnesium 1.7 mg/dL (1.8-2.4) L 08/21/22 07:04 C-Reactive Protein 0.92 mg/dL (0.0-0.3) H 08/20/22 11:30 Electrolytes, C-Reactive P, ESR: Reviewed - DM Control DM Control: Glucose 97 mg/dL (74-106) 08/21/22 07:04 DM Control: N/A - Cardiac Review BP, HR, EF%: Reviewed - Qtc Review QTc: N/A (no EKG) - IV to PO Switch IV Medications: Reviewed (switch cipro to PO?) - Home Meds Home Med List reviewed: Reviewed - Current meds Current Medication Order Review: Reviewed Antibiotic Review - Pharmacy Antibiotic Review Pharmacy Antibiotic Activity: Reviewed, no change (cipro 400 mg IV Q12h started 08/20, switch to PO when appropriate)
[2022-08-21] MEDS: Enoxaparin 40 MG/0.4 ML SYR SC (17:26)
[2022-08-22] MEDS: FAMOTIDINE 20 MG in Normal Saline 100 ML 200 MG IVPB (05:40)
[2022-08-22 06:59] LABS: Platelet Count 200 10^3/uL (130-400)
[2022-08-22 07:18] LABS: Anion Gap 4.6 mmol/L (3-11); BUN 15 mg/dL (7-18); CO2 31.4 mmol/L (21.0-32.0); CREATININE 1.1 mg/dL (0.70-1.30); Calcium 8.5 mg/dL (8.5-10.1); Chloride 105 mmol/L (98-107); Estimated GFR 73.12 (mL/min/1.73m2); Glucose 92 mg/dL (74-106); Magnesium 1.5 mg/dL (1.8-2.4); Potassium 3.1 mmol/L (3.5-5.1); Sodium 141 mmol/L (136-145)
[2022-08-22 08:01] VITALS: BP 130/74; PULSE 74; RESP 18; TEMP 36.9; O2SAT 94
--- NOTE | 2022-08-22 08:40 | CMPROGNOTE_ITS ---
- If Service Date Differs Date of service: 08/22/22 Time of Service: 08:40 Care Management Progress Note S/O: Juan is being closely monitored and his diet is being advanced. He is starting to feel better, passing gas and his watery stools have resolved. Juan has concerns about going back to his regular home diet after discharge and is interested in a nutrition consult. A: 67 year old male admitted to [facility] on 08/20/22 for Bowel Obstruction. P: Anticipate, uJan will discharge home via private vehicle with family when medically ready. No services, per pt. He will follow up with his community providers and discharge plan of care as prescribed. In addition, Juan has a previously scheduled follow up appointment with Dr. Aguirre on 08/29/22.
--- NOTE | 2022-08-22 08:57 | W.PM.PROGNOT ---
Date of Service Date of service: 08/22/22 Time of Service: 08:57 Assessment and Plan Assessment and plan (1) Colon obstruction: Status: Acute Assessment and plan: post op ileues resolved soft/low residue diet x 1 week plan d/c home later today. (2) Microscopic hematuria: Status: Acute Assessment and plan: I did review his UA with Melissa Ahmadi. She said this was normal for a postop TURP and antibiotics are not required (3) Atherosclerosis of aortic bifurcation and common iliac arteries: Status: Acute Subjective Subjective Interval history since last seen: Pt is doing well. no headaches. No CP or SOB. no productive cough. no dysuria. no leg pain or swelling. pt is tolerating clears and is hungry. Xray's reviewed. pt is urinating well- no clots Exam Resp Auscultation: clear to auscultation bilaterally Cardio Jugular venous pressure: no JVD Rate: regular rate Rhythm: regular rhythm GI Palpation: soft Auscultation: normal bowel sounds Extrem General: no clubbing, cyanosis or edema Objective Last Vital Signs Temp 36.9 C 08/22/22 08:01 Pulse 74 08/22/22 08:01 Resp 18 08/22/22 08:01 BP 130/74 08/22/22 08:01 Pulse Ox 94 08/22/22 08:01 Laboratory Results - last 24 hr 08/22/22 08/22/22 06:12 06:12 Plt Count 200 Sodium 141 Potassium 3.1 L Chloride 105 Carbon Dioxide 31.4 Anion Gap 4.6 BUN 15 Creatinine 1.1 Est GFR (CKD-EPI 2020) 73.12 Glucose 92 Calcium 8.5 Magnesium 1.5 L
[2022-08-22] MEDS: MAGNESIUM SULFATE 2 GM/50 ML BAG IVPB (10:00)
[2022-08-22 15:29] VITALS: BP 133/73; PULSE 84; RESP 16; TEMP 37; O2SAT 93
--- NOTE | 2022-08-22 15:29 | CHAPLAIN ---
Juan was worried about being discharged because he said he hasn't eaten any solid food yet, and he doesn't want to be discharged and have to return. He said he's been in and out of the ED and Med/Surg this past week. He lives in [place], [place] with his . His 39 year-old daughter, who lived in [facility] recently. Her sons live in [place] and are close to Juan and his .
[2022-08-22] MEDS: Milk of Magnesia 30 ML CUP PO (18:19)
--- NOTE | 2022-08-22 18:38 | DSE_ITS ---
DS: Diagnosis Discharge Diagnosis (1) Colon obstruction: Status: Acute (2) S/P TURP (status post transurethral resection of prostate): Status: Acute (3) Umbilical hernia: Status: Acute (4) Nausea & vomiting: Status: Acute Discharge Plan Disposition Patient Disposition: HOME Condition: Serious Discharge Details Reason For Visit: Ileus Admit Date/Time: 08/20/22 13:53 Admit Provider: Carmen Omer Attending Provider: Carmen Omer Primary Care Provider: Hermila Hamilton Matheson Meds and New Rx's Prescriptions: No Action amitriptyline 50 mg tablet 50 mg PO QHS Qty: 90 2RF Rx Instructions: Note dosage increase atorvastatin 20 mg tablet 20 mg PO HS diphenhydramine-acetaminophen [Tylenol PM Extra Strength] 25-500 mg tablet 1 tab PO QHS PRN tadalafil [Cialis] 5 mg tablet 5 mg PO HS Rx Instructions: Use for BPH s/s tramadol 50 mg tablet 50 mg PO Q6H PRN (Reason: pain) Qty: 15 0RF ondansetron 4 mg tablet,disintegrating 4 mg PO Q8H PRN (Reason: nausea and vomiting) Qty: 30 0RF aspirin 81 mg Capsule,Delayed Release(Dr/Ec) 81 mg PO DAILY Discharge Instructions Additional Instructions: -No driving x 24hrs or of you are taking narcotic pain medications. -Follow-up in surgery clinic on Friday or Friday. Please call for appt: [phone] -soft diet: No beef/pork raw vegetables x1 -week. Cooked vegetables are fine. see below -no straining to move bowels - if you do not move your bowels daily take a dose of OTC milk of magnesia or Miralax -It is ok to shower. - You may find that your appetite is smaller. Eat 3-6 small meals throughout the day. It is important to drink lots of water after surgery, 6-10 glasses a day. -If you were given an incentive spirometry (breathing leaf conditioner?), continue to do this 10x/hour while awake. -We do want you up walking, at least 5-6 times per day. This is very important to prevent pneumonia and blood clots. You can climb stairs, take them slowly. -No lifting over 10 pounds. -You may find that you are tired- this is normal. -F/u w/ urology as previously scheduled. Gastrointestinal Soft Diet Overview Overview What is a gastrointestinal soft diet? This diet is soft in texture, low in fiber, and easy to digest. The goal is to decrease)?in the bowel that may cause and discomfort. This diet is often used after abdominal surgery or as a transitional diet after flares. Meats & Meat Substitutes ? Foods Allowed: Chicken, turkey, fish, tender cuts of beef and pork, ground meats, eggs, creamy nut butters, tofu, skinless hot dogs, sausage patties without whole spices ? Foods to Avoid : Tough, fibrous meats with gristle, meat with casings (hot dogs, sausage, kielbasa), lunch meats with whole spices, shellfish, beans, chunky peanut butter, nuts Fruits and Juices ? Foods Allowed: Fruit juices without pulp, banana, avocado, applesauce, canned peaches and pears, cooked fruit without the skin/seeds.? Ground or over- cooked fruits.? Fruits ground finely in a ?smoothie?. ? Foods to Avoid: Juices with pulp, fresh fruit (except banana and avocado), dried fruits, canned fruit cocktail and pineapple, coconut, frozen/thawed berries Vegetables ? Foods Allowed: Well-cooked or canned vegetables, potatoes without skin, tomato sauces, vegetable juice ? Foods to Avoid: Raw vegetables, all corn, all mushrooms, stewed tomatoes, potato skins, stir-zimmer vegetables, sauerkraut, pickles, olives, all dried beans, peas, and legumes Cereals and Grains ? Foods Allowed: Low- fiber dry or cooked cereals (less than 2 grams fiber per serving), white rice, pasta, macaroni, or noodles ? Foods to Avoid: Cereals with nuts, berries, dried fruits, whole grain cereals, bran cereals, granola, brown or wild rice, whole grain pasta Breads and Crackers ? Foods Allowed: White/refined breads and rolls, plain bagel, toast, plain crackers, amaury crackers ? Foods to Avoid: Whole grain breads- including white whole grain; bread/ rolls with raisins, nuts or seeds, multi-grain crackers Dairy ? Foods Allowed: Milk, cheese, yogurt, milkshakes, pudding, ice cream, cottage cheese, sherbet ;?lactose free or low lactose versions if lactose intolerant ? Foods to Avoid: Dairy product mixed with fresh fruit (except banana), berries, nuts or seeds Desserts ? Foods Allowed: Plain cake, pudding, custard, ice cream, sherbet, gelatin, fruit whips ? Foods to Avoid: Any dessert that contains nuts, dried fruits, coconut, or fruits with seeds Herbs and Spices ? Foods Allowed: All ground spices or herbs, salt ? Foods to Avoid: Whole spices such as peppercorns, whole cloves, anise seeds, celery seeds, zohaib, trent seeds, and fresh herbs Snacks/Other Foods ? Foods Allowed: Sugar, honey, jelly, mayonnaise, mustard, soy sauce, oil, butter, margarine, marshmallows, cookies without dried fruits or nuts, snack chips and pretzels using refined flours ? Foods to Avoid: Carbonated beverages, jams or jellies with seeds, popcorn After several weeks, slowly start to reintroduce the ?Foods to Avoid? back into your diet unless your doctor has told you otherwise. Try a small portion of one of these foods each day. If it does not bother you within 24 hours, it can be added to your diet. Continue to add new foods in this way. Some people may continue to have food sensitivities and may need to continue to avoid certain foods. If you cannot tolerate a food, avoid that food for a few weeks before you try it again. Guidelines when eating 1.??? Avoid any food that you cannot tolerate or that causes gas, bloating, or stomach pain. 2.??? Make time for your meals. Do not eat while you are in a hurry. Cut your food into small pieces. Chew each bite to a mashed potato consistency. Do not eat when you cannot concentrate on chewing well. 3.??? Drink at least 6-8 cups of fluid per day? Fluids include: water, coffee, tea, juice, milk, popsicles, soups, gelatin, pudding, ice cream, sherbet, and yogurt. In addition, choose caffeine-free beverages more often, especially if you are having?diarrhea. 4.??? A daily multivitamin may be recommended if diet is limited in amounts or variety of foods. Do not take any herbal supplements without first checking with your doctor. Activity:: see above Equipment/Supplies:: No Equipment Needed Diet:: soft diet Discharge Orders Discharge Orders: Discharge Order (Routine); Ordered 08/22/22 Ordered By: Carmen Omer DS: Summary Time Spent with Patient providing and/or coordinating discharge services: Less than 30 minutes Status at Discharge Functional status at discharge: independent ambulation Overall status at discharge: patient is back to baseline Mental Status: mental status grossly normal Speech and Movement: speech and movement normal Mood: congruent mood Affect: normal affect Exam Psych Mental Status: mental status grossly normal Speech and Movement: speech and movement normal Mood: congruent mood Affect: normal affect DS: Data Vitals/I&O Vitals and I&O: Vital Signs Temperature 37.0 C 08/22/22 15:29 Temperature Source Tympanic 08/22/22 15:29 Pulse 84 08/22/22 15:29 Pulse Rhythm Regular 08/22/22 10:49 Pulse 80 08/20/22 12:01 Respiratory Rate 16 08/22/22 15:29 Respiratory Effort Non-Labored 08/22/22 10:49 Respiratory Depth Normal 08/22/22 10:49 Respiratory Pattern Normal 08/22/22 10:49 Blood Pressure 133/73 08/22/22 15:29 Blood Pressure Mean 94 08/20/22 12:01 Pulse Oximetry 93 08/22/22 15:29 Oxygen Delivery Method Room Air 08/22/22 15:29 Oxygen Flow Rate 0 08/22/22 15:29 Pain Level 0 08/22/22 15:29 Comment 08/21/22 15:05 Intake & Output 08/21/22 08/22/22 08/22/22 23:59 11:59 23:59 Intake Total 903.667 / 2569.000 312 / 312 Output Total 400 / 1650 200 / 450 250 / 450 Balance 503.667 / 919.000 112 / -138 -250 / -138 Intake: IV 903.667 / 2569.000 102 / 102 Oral 210 / 210 Output: Urine 400 / 900 200 / 450 250 / 450 Other: Urine Color Yellow Light Precious Urine Appearance Clear Clear Urine Odor Normal None Comment Void x1 in the urinal. patient has been voiding independently in the toilet Stool Size Small Stool Characteristics Soft Liquid Brown Voiding Methods Toilet Urinal Data Completed and Pending Labs on day of discharge: Labs from last 24 hours 08/22/22 08/22/22 06:12 06:12 Plt Count 200 Sodium 141 Potassium 3.1 L Chloride 105 Carbon Dioxide 31.4 Anion Gap 4.6 BUN 15 Creatinine 1.1 Est GFR (CKD-EPI 2020) 73.12 Glucose 92 Calcium 8.5 Magnesium 1.5 L PFSH All Active Problems (Updated 08/20/22 @ 23:05 by Carmen Omer DO) Former smoker (Acute) Atherosclerosis of aortic bifurcation and common iliac arteries (Acute) Coronary artery calcification seen on CAT scan (Acute) Colon obstruction (Acute) per CT vs ileus S/P TURP (status post transurethral resection of prostate) (Acute) Umbilical hernia (Acute) Iliac artery occlusion, left (Acute) Bowel obstruction (Acute) Nausea & vomiting (Acute) BPH w urinary obs/LUTS (Acute) Microscopic hematuria (Acute) Medical History 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 Basal cell carcinoma Dysuria Iliac artery aneurysm, bilateral F/U @ [facility] [place] 04/04/2022 Left hip pain Osteoarthritis of hip Surgical History History of appendectomy History of hernia repair Double hernia History of right hip replacement S/P skin biopsy head/neck Status post Mohs surgery Social History Smoking/Tobacco Use Status: Current-Occasional Tobacco Type: cigarettes Smoking risk assessment performed?: Yes Alcohol Intake: never Drug use: Never Substance use type: does not use Do you feel safe at home: Yes Do you feel safe in your relationship?: Yes Additional Social history: Unable to assess privately
== END 2022-08-22 19:07 | disposition home or self-care (01) | DRG 389 ==
LOC: ER 14:09 → MS 14:51
PROVIDERS: Student in an Organized Health Care Education/Training Program; Admitting Provider Surgery; Emergency Provider Physician Assistant; PCP Nurse Practitioner; Visit Provider Surgery
DX: K91.31 Postprocedural partial intestinal obstruction (principal); I74.5 Embolism and thrombosis of iliac artery; K42.9 Umbilical hernia without obstruction or gangrene; I25.10 Atherosclerotic heart disease of native coronary artery without angina pectoris; I70.0 Atherosclerosis of aorta; I70.203 Unspecified atherosclerosis of native arteries of extremities, bilateral legs; R31.29 Other microscopic hematuria; Z90.79 Acquired absence of other genital organ(s); Z96.641 Presence of right artificial hip joint; F17.210 Nicotine dependence, cigarettes, uncomplicated; I71.4 Abdominal aortic aneurysm, without rupture
CPT/HCPCS: 36415; 71045; 80048; 80053; 83690; 84145; 87493; 87635; 96360; 99222; 99231; 99238; 99285; J1650; 74018; 74019; 74177; 81003; 81015; 83605; 83735; 85025; 85049; 86140; 87086; J0744; J3475

== ENCOUNTER → 2022-08-20 14:04 | Outpatient (CLI) | payer MEDICARE, SELFPAY ==
--- NOTE | 2022-08-20 08:45 | DI.RAD_ITS ---
Exam(s) XR ABDOMEN FLAT PLATE EXAM: 2D digital imaging was performed. CLINICAL HISTORY: abd pain, bloating. COMPARISON: CT CT ABDOMEN PELVIS WO/W from 02/14/2020 TECHNIQUE: Supine views of the abdomen was performed. Two images were obtained. FINDINGS: LUNG BASES: Clear. BOWEL GAS PATTERN: There are dilated loops of small bowel present. There is air seen within the asce nding and transverse colon. The possibility of an obstruction should be considered. Ileus cannot be excluded. FREE AIR: None. CALCIFICATIONS: Vascular calcifications are present. OSSEOUS STRUCTURES: Normal for age. The patient has a right total hip replacement. There are marked degenerative changes seen in the left hip. OTHER FINDINGS: None. IMPRESSION: Dilated loops of small and large bowel. Ileus versus bowel obstruction. DATA REPOSITORY: RADIATION DOSE DELIVERED:
--- OUTSIDE RECORDS SUMMARY | 2022-08-20 14:07 | XMS_ITS | Encounter Summary ---
:1955 Author Organization [facility] [place] [address] Care Team Providers Name Role Phone Hermila Hamilton APRN Primary Care Provider [phone] Reason for Referral Diagnostic Test (Routine) - New Request Specialty Diagnoses / Procedures Referred By Contact Refer red To Contact Diagnoses Abdominal aortic aneurysm (AAA) without rupture Bilateral iliac artery aneurysm Matilda Richmond APRN [facility] 3v Procedures AAA Duplex, Complete/Bilateral [facility] [place] [address] [place] [address] Referral ID Status Reason Start Expiration Visits Visits Date Date Requested Authorized [id number] New Request Specialty 04/09/2022 04/09/2023 1 1 Service Requested Encounter Details Date Type Department Care Team Description 04/09/2022 Orders Only Vascular Surgery at [facility] Abd ominal aortic aneurysm (AAA) without rupture; [facility] [place] D, HAND HARDENER Bilateral [place] [address] Social History Tobacco Use Types Packs/Day Years Used Date Light Tobacco Smoker Cigarettes 0.25 Smokeless Tobacco: Never Used Comments: quit 10/30/2015 Alcohol Use Standard Drinks/Week Comments No 0 (1 standard drink = 0.6 oz pure alcoho l) Sex Assigned at Date Recorded Not on file documented as of this encounter Plan of Treatment Upcoming Encounters Date Type Specialty Care Team Description 11/04/2022 Office Visit Dermatology Johnny Castellanos MD [facility] ER DR KARLI ANDERSON-[address]MAT [place], [place] [address] (Wo rk) documented as of this encounter Visit Diagnoses Diagnosis Abdominal aortic aneurysm (AAA) without rupture Bilateral iliac artery aneurysm Aneurysm of iliac artery documented in this encounter Care Teams Box Storage Worker Relationship Specialty Start Date End Date Hermila Hamilton APRN PCP - General Family Medicine 08/30/[address] [place] [id number] documented as of this encounter
--- OUTSIDE RECORDS SUMMARY | 2022-08-20 14:07 | XMS_ITS | Encounter Summary ---
:1955 [place] [address] Care Team Providers Name Role Phone Hermila Hamilton APRN Primary Care Provider [phone] Reason for Visit Reason Comments Follow-up Encounter Details Date Type Department Care Team Description 12/23/2016 Office Visit Dermatology Mohs at [facility], En counter for removal Rylee KONG of sutures [address] [facility] [address] [place], [place] DERMATOLOGY [address] [place], [place] [phone] [facility] [phone] (Wo rk) Social History Tobacco Use Types Packs/Day Years Used Date Former Smoker 0.75 Comments: quit 10/30/2015 Alcohol Use Standard Drinks/Week Comments No 0 (1 standard drink = 0.6 oz pure alcoho l) Sex Assigned at Date Recorded Not on file documented as of this encounter Patient Instructions Patient InstructionsBelkys Bennett LPN - 12/23/2016 10:15 AM EST Your sutures were removed today. No wound care needed other than regular washing and application of vaseline for another 1-2 weeks. Follow-up in 3 months but may cancel if no concerns. documented in this encounter Progress Notes [facility]asm[facility] MD - 12/23/2016 10:15 AM EST Juan Dean is here today for suture removal on the Rt tragus. No new problems at surgical site since last visit. Incision line is clean and well approximated. One small area still healing. Minimal redness and swelling noted. Wound appears to be healing well. The area was cleaned well. Sutures were removed and vaseline applied. Cont vasoline for 2 weeks thenok to stop. Post-op instructions were reviewed with patient and all questions answered. Will follow-up in 3 months or sooner as needed. Patient discharged. documented in this encounter Plan of Treatment Upcoming Encounters Date Type Specialty Care Team Description 11/04/2022 Office Visit Dermatology Johnny Castellanos MD [facility] [address] KARLI ANDERSON[address]DERMAT [place], [place] [address] (Wo rk) documented as of this encounter Visit Diagnoses Diagnosis Encounter for removal of sutures documented in this encounter Care Teams Sr Account Executive Relationship Specialty Start Date End Date Hermila Hamilton APRN PCP - General Family Medicine 08/30/[address] [place] [id number] documented as of this encounter
--- OUTSIDE RECORDS SUMMARY | 2022-08-20 14:07 | XMS_ITS | Encounter Summary ---
:1955 [place] [address] Care Team Providers Name Role Phone Hermila Hamilton ASSEMBLER ARRANGER Primary Care Provider [phone] Reason for Visit Reason Comments Skin Lesion Right ear Consultation (Routine) - Specialty Diagnoses / Procedures Referred By Contact Refer red To Contact Dermatology Diagnoses Disorder of the skin and subcutaneous tissue, unspecified skin lesion on right ear Hermila Hamilton, [facility] Dermatology ASSEMBLER ARRANGER [address] [place] [id number] [place], [place] [address] Referral ID Status Reason Start Date Expiration Date Visits V isits Requested Authorized [id number] Consult, Test 08/28/2016 08/28/2017 [facility] PCP Updated and/or Approved Encounter Details Date Type Department Care Team Description 09/11/2016 Office Visit Dermatology at Nancy Rojas MD Neoplasm of uncertain behavior of skin ( Primary Dx); [facility] Screening for malignant neop lasm of the skin; [address] [place] [address] [phone] [address]-DERMATOLOGY [place], [place] [address] Social History Tobacco Use Types Packs/Day Years Used Date Current Every Day Smoker 0.75 Sex Assigned at Date Recorded Not on file documented as of this encounter Patient Instructions Patient InstructionsJessica Kay LPN - 09/11/2016 4:00 PM EDT You had a biopsy of your skin (removal of a small piece of tissue for examination under a microscope). Keep area covered and moist with a band aid and Vaseline, change daily. The results will be available in about 7 days. Your doctor or nurse will tell you the results by phone or letter and plan any follow up treatment if necessary. documented in this encounter Progress Notes Nancy Francisco MD - 09/11/2016 4:00 PM EDT Images from the original note were not included. [facility] DERMATOLOGY NEW PATIENT - OUTPATIENT NOTE Date of Service: 09/11/2016 : 1955 PCP: HERMILA HAMILTON, ARYA CHIEF COMPLAINT: Spot on the R ear and skin cancer surveillance. HPI: Juan Dean is a pleasant 61 y.o. male, without a skin condition, who presents today for the evaluation of the above complaint. I am seeing him in consultation at the request of Hermila Hamilton. Spot on R ear: Patient was unaware of this spot, therefore he doesn't know how long it's been there for. Asymptomatic--doesn't bleed, itch, or hurt. Never been treated. Otherwise no other concerns today. 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 Wears a broad-rimmed hat when he's outside. REVIEW OF SYSTEMS: Feels well. Denies unintentional weight loss and fever. SKIN HISTORY: None PAST MEDICAL HISTORY: There is no problem list on file for this patient. ADR: No Known Allergies MEDS: No current outpatient prescriptions on file. 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 FAMILY HISTORY: None PHYSICAL EXAMINATION Verbal permission was obtained to photograph lesion/rash for documentation. A full skin exam was performed of the face, scalp, trunk, extremities, buttocks and genitals. In general, patient is in NAD. FINDINGS, ASSESSMENT, AND PLAN #1. FINDINGS: On the R tragus, an 8mm pink-purple papule with some translucency and arborizing telangiectasia. ASSESSMENT: Basal cell carcinoma (BCC). Discussed the etiology of this particular cutaneous carcinoma and that they're generally slow-growing and rarely cause . Treatment is indicated because if left untreated they will grow to destroy the surrounding tissue. We discussed possibility of having Mohs surgery because of its location. PLAN: Procedure: Skin biopsy by shave technique Discussed indications for procedure and expectations including risks and benefits. Verbal consent obtained. Skin prep with alcohol. Local anesthesia with 1% xylocaine, 1/100,000 epinephrine. A sample of the lesion was removed by shave technique to the level of the dermis and submitted to Pathology. Hemostasis obtained (AlCl and/or electrocautery). There were no complications; the pt. tolerated the procedure well. The wound was dressed. Post-procedure expectations, wound care and activity restrictions were reviewed. Follow-up based on pathology results. #2. FINDINGS: On the posterior R ear lobe, a yellow mobile subcutaneous nodule, soft. ASSESSMENT: Epidermal inclusion cyst. Discussed the etiology of these lesions and that they're benign. There is a risk of inflammation, in which case we would excise them. PLAN: Reassurance. Return to clinic 6 months. Patient does not want Bx report left in a VM. Thank you for involving me in the care of Juan Dean. Please call if you have further questions. A copy of this report was sent to the referring provider. Nancy Francisco MD Resident in Dermatology, PGY2 Section of Dermatology, Department of Surgery [facility] Pager [phone] Patient seen and evaluated with staff pump house technician: Carisa Swann MD Section of Dermatology [facility] Carisa Swann MD - 09/11/2016 4:00 PM EDT I directly supervised Dr. Nancy Francisco during this office visit. Dr. Francisco presented the history andphysical exam to me. I then saw and examined this patient with Dr. Francisco. We reviewed the history andpertinent details and I confirmed the physical findings. I agree with the details of the history and physical exam as documented in Dr. Francisco's note. CARISA SWANN MD Staff Physician documented in this encounter Plan of Treatment Upcoming Encounters Date Type Specialty Care Team Description 11/04/2022 Office Visit Dermatology Johnny Castellanos MD [facility] DR KARLI ANDERSON-DERMAT [place], [place] [address] (Wo rk) documented as of this encounter Procedures Procedure Name Priority Date/Time Associated Diagnosis Comme nts SPECIMEN TO Routine 09/11/2016 4:20 PM Neoplasm of Results f or this PATHOLOGY (NON-OR) EDT uncertain behavior pro cedure are in of skin the results section. SURGICAL PATHOLOGY Routine 09/11/2016 4:20 PM Res ults for this REPORT EDT procedure are i n the results section. documented in this encounter Results Surgical Pathology Report (09/11/2016 4:20 PM EDT) Component Value Ref Test Analysis Performed At [facility] Range Method Time Signature Surgical [id number] ?Location: [facility] Pathology DRIFT Report The signing pathologist has (i) examined the relevant preparation(s) for the MEMORIAL specimen(s) and (ii) rendered or confirmed the diagnosis(es) . HOSPITAL LABORATORY . ?Surgic al Pathology DIAGNOSIS Skin, right tragus, shave biopsy: - BASAL CELL CARCINOMA, NODULAR TYPE, transected Electronically signed by: ??Chetan Ordaz MD Verified: ??09/16/2016 ?Dermatopathologist, Bone & Soft Tissue Pathologist CLINICAL INFORMATION Specimen Submitted: A - Skin, right tragus, shave biopsy (1) Clinical History: 8 mm well demarcated pink telangiectatic papule Clinical Diagnosis: BCC vs. cyst SPECIMEN PROCESSING A - Labeled/Fixative: Right tragus, formalin. Quantity/Size: Single, 0.7 x 0.4 x 0.2 cm. Tissue Description: Randall-pink papule. Sections/Processing: Inked and trisected. (T1) ??pps Specimen (Source) Anatomical Collection Method Collection Time Re ceived Time Location / / Volume Laterality 09/11/2016 4:20 PM EDT Nancy Francisco MD PATHOLOGY/CYTOLOGY ORDERABLE S Performing Organization Address City/[facility]/ZIP [facility] [place] [address] Specimen to Pathology (NON-OR) (09/11/2016 4:20 PM EDT) Specimen Anatomical Collection Method Collection Time Receive d Time (Source) Location / / Volume Laterality AP Specimen 09/11/2016 4:20 PM 6 6:32 EDT PM EDT Narrative [facility] - 09/11/2016 6:32 PM EDT Specimen requisition ordered. ??Separate Pathology report to follow Resulting Agency Comment Spec In Lab Carisa Swann MD PATHOLOGY/CYTOLOGY ORDERABLE S Performing Organization Address City/[facility] [place] [address] documented in this encounter Visit Diagnoses Diagnosis Neoplasm of uncertain behavior of skin - Primary Screening for malignant neoplasm of the skin Actinic skin damage Other chronic dermatitis due to solar ra diation documented in this encounter Care Teams Analytics Associate Relationship Specialty Start Date End Date Hermila Hamilton APRN PCP - General Family Medicine 08/30/16 [address] [place] [address] documented as of this encounter
--- OUTSIDE RECORDS SUMMARY | 2022-08-20 14:07 | XMS_ITS | Encounter Summary ---
:1955 Author Organization [facility] Address [place] [id number] Care Team Providers Name Role Phone Hermila Hamilton APRN Primary Care Provider [phone] Encounter Details Date Type Department Care Team Description 08/01/2017 Hospital Encounter [facility] [place] [facility] [place] [address] [place] [address] [phone] (Wo rk) Social History Tobacco Use Types Packs/Day Years Used Date Former Smoker 0.75 Comments: quit 10/30/2015 Alcohol Use Standard Drinks/Week Comments No 0 (1 standard drink = 0.6 oz pure alcoho l) Sex Assigned at Date Recorded Not on file documented as of this encounter Medications at Time of Discharge Medication Sig Dispensed Refills Start Date End Date nicotine (NICODERM CQ) Place 1 patch onto 0 03/06/2020 21 mg/24 hr Patch 24 hr the skin every 24 hours. ibuprofen (ADVIL;MOTRIN) Take 200 mg by mouth 0 03/06/2020 200 mg Tablet every 6 hours as needed for Pain. Reported on 12/09/2016 documented as of this encounter Plan of Treatment Upcoming Encounters Date Type Specialty Care Team Description 11/04/2022 Office Visit Dermatology Johnny Castellanos MD [facility] DR KARLI ANDERSON-DERMAT [place], [place] [address] (Wo rk) documented as of this encounter Procedures Procedure Name Priority Date/Time Associated Diagnosis Comme nts FILM LIBRARY Routine 08/01/2017 12:00 AM Pain Results for this STORAGE ONLY DX EDT procedure ar e in ABDOMEN the results section. documented in this encounter Results Film Library- Storage Only DX Abdomen (08/01/2017 12:00 AM EDT) Specimen (Source) Anatomical Location Collection Method / Collectio n Time Received Time / Laterality Volume Narrative [facility] - 08/02/2017 7:47 AM EDT This exam is for storage only and is aut o-finalizing. Dash Mijares MD IMG FILM LIBRARY ORDERABLES Performing Organization Address City/State/ZIP Code Phon e Number [place], [place] documented in this encounter Visit Diagnoses Diagnosis Pain Generalized pain documented in this encounter Care Teams Retort Fireman Relationship Specialty Start Date End Date Hermila Hamilton APRN PCP - General Family Medicine 08/30/16 [address] [place] [address] documented as of this encounter
--- OUTSIDE RECORDS SUMMARY | 2022-08-20 14:07 | XMS_ITS | Encounter Summary ---
:1955 [place] [address] Care Team Providers Name Role Phone Hermila Hamilton APRN Primary Care Provider [phone] Reason for Visit Reason Comments Follow-up Encounter Details Date Type Department Care Team Description 03/24/2017 Office Visit Dermatology Mohs at [facility] following Rylee KONG surgery for neoplasm [address] DERMATOLOGY [address] [place], [place] [phone] [facility] [phone] (Wo rk) Social History Tobacco Use Types Packs/Day Years Used Date Former Smoker 0.75 Comments: quit 10/30/2015 Alcohol Use Standard Drinks/Week Comments No 0 (1 standard drink = 0.6 oz pure alcoho l) Sex Assigned at Date Recorded Not on file documented as of this encounter Progress Notes Erasmo Staton MD - 03/24/2017 10:15 AM EDT Images from the original note were not included. S: Juan Dean is three months s/p Mohs surgery for a basal cell carcinoma on the right tragus. The defect was repaired with a rhombic flap. ROS: constitutional: overall pt feels fine O: Scar appears to be healing well with minimal redness and no residual swelling noted. A/P: S/P MMS for basal cell carcinoma. No evidence of disease today. Scar healing well. Expectationsreviewed with patient and all questions answered. Photoprotection reviewed. Recommend f/u with Dr. Francisco in 3-6 months or sooner if needed. Pt welcome to call or return to clinic with any questions in the future as needed. Patient discharged. documented in this encounter Plan of Treatment Upcoming Encounters Date Type Specialty Care Team Description 11/04/2022 Office Visit Dermatology Johnny Castellanos MD [facility] DR KARLI ANDERSON-DERMAT [place], [place] [address] (Wo rk) documented as of this encounter Visit Diagnoses Diagnosis Aftercare following surgery for neoplasm documented in this encounter Care Teams Drug Safety Specialist Relationship Specialty Start Date End Date Hermila Hamilton APRN PCP - General Family Medicine 08/30/16 [address] [place] [address] documented as of this encounter
--- OUTSIDE RECORDS SUMMARY | 2022-08-20 14:07 | XMS_ITS | Clinical Summary ---
:1955 Author Organization [facility] Address [place] [id number] Care Team Providers Name Role Phone JoyHermila ARYA Primary Care Provider [phone] Allergies Active Allergy Reactions Severity Noted Date Comments Blueberry Nausea And Vomiting 10/04/2019 Medications Medication Sig Dispensed Refills Start Date End Date Status atorvastatin (LIPITOR) Take 20 mg by 0 Active 20 mg Tablet mouth daily. tamsulosin (FLOMAX) 0.4 Take 0.4 mg by 0 Active mg Capsule mouth daily. aspirin 81 mg Tablet, Take 81 mg by 0 Active Delayed Release (E.C.) mouth daily. tadalafiL (CIALIS) 5 mg 0 09/08/2021 Active Tablet diphenhydrAMINE-acetamin Daily. 0 Active ophen (TYLENOL PM) 25-500 mg Tablet amitriptyline (Elavil) Take 50 mg by 0 01/29/2022 Active 50 mg Tablet mouth nightly. Active Problems Problem Noted Date Abdominal aortic aneurysm (AAA) without rupture 2019 Iliac artery aneurysm, bilateral 03/06/2020 Hip disease 03/06/2020 Overview: S/p right hip replacement 2 years ago wa iting for left hip replacement Encounters Date Type Specialty Care Team Description 06/19/2022 Office Visit Dermatology Ирина Avalos MD History of b adams cell carcinoma (BCC); Actinic keratos is; Milia from Last 3 Months Family History Medical History Relation Comments Cancer Mother Skin Cancer Neg Hx Relation Status Comments Mother Social History Tobacco Use Types Packs/Day Years Used Date Light Tobacco Smoker Cigarettes 0.25 Smokeless Tobacco: Never Used Comments: quit 10/30/2015 Alcohol Use Standard Drinks/Week Comments No 0 (1 standard drink = 0.6 oz pure alcoho l) Sex Assigned at Date Recorded Not on file Last Filed Vital Signs Vital Sign Reading Time Taken Comments Blood Pressure 137/88 04/04/2022 8:45 AM EDT Pulse 87 04/04/2022 8:45 AM EDT Temperature - - Respiratory Rate 16 04/04/2022 8:45 AM EDT Oxygen Saturation - - Inhaled Oxygen Concentration - - Weight 81.6 kg (180 lb) 04/04/2022 8:45 AM EDT Height 182.9 cm (6') 04/04/2022 8:45 AM EDT Body Mass Index 24.41 04/04/2022 8:45 AM EDT Plan of Treatment Upcoming Encounters Date Type Specialty Care Team Description 11/04/2022 Office Visit Dermatology Johnny Castellanos MD [facility] DR KARLI ANDERSON-DERMAT [place], [place] [address] (Wo rk) Health Maintenance Due Date Last Done Comments Covid-19 Vaccine (#1) 1959 Pneumoccocal Vaccine: 65+ (1 - 1960 PCV) Hepatitis C Screening 1972 Tdap adult 1973 Tetanus vaccine 1973 Colonoscopy 1999 Zoster vaccine (1 of 2) 2004 Advance Directive 2009 Influenza (Flu) vaccine (1 of - 07/25/2022 Influenza standard series) AAA Screen Completed 04/04/2022, 10/01/2021, 02/27/2021, Additional history exists Insurance Payer Benefit Plan / Subscriber ID Effective Phone Address T ype Group Dates MEDICARE MEDICARE PART A [id number] 2021-Prese [phone] [facility] [place] [phone] AARP SUPPLEMENT AARP SUPPLEMENT [id number] 2021-[place] [address] [place] [id number] [place] [phone] Care Teams Assisted Living Administrator Relationship Specialty Start Date End Date Hermila Hamilton APRN PCP - General Family Medicine 08/30/16 [address] [place] [address]
--- OUTSIDE RECORDS SUMMARY | 2022-08-20 14:07 | XMS_ITS | Encounter Summary ---
:1955 Author Organization [place] [id number] Care Team Providers Name Role Phone Hermila Hamilton ARYA Primary Care Provider [phone] Reason for Visit Reason Comments Basal Cell Carcinoma Consultation (Routine) - Specialty Diagnoses / Procedures Referred By Contact Refer red To Contact Dermatology Diagnoses BCC (basal cell carcinoma of skin) Nancy Francisco MD [facility] [address] [place] [address] [place] [address] Referral ID Status Reason Start Date Expiration Date Visits V isits Requested Authorized [id number] Consult, Test 10/22/2016 10/22/2017 6 6 & Treat PCP Updated and/or Approved Encounter Details Date Type Department Care Team Description 12/09/2016 Procedure visit Dermatology Mohs at [facility], Basal cell carcinoma [facility] [address] DERMATOLOGY [address] [place] [id number] Social History Tobacco Use Types Packs/Day Years Used Date Former Smoker 0.75 Comments: quit 10/30/2015 Alcohol Use Standard Drinks/Week Comments No 0 (1 standard drink = 0.6 oz pure alcoho l) Sex Assigned at Date Recorded Not on file documented as of this encounter Last Filed Vital Signs Vital Sign Reading Time Taken Comments Blood Pressure 133/86 12/09/2016 10:35 AM EST Pulse 82 12/09/2016 10:35 AM EST Temperature - - Respiratory Rate - - Oxygen Saturation - - Inhaled Oxygen Concentration - - Weight 80.7 kg (178 lb) 12/09/2016 10:35 AM EST Height 182.9 cm (6') 12/09/2016 10:35 AM EST Body Mass Index 24.14 12/09/2016 10:35 AM EST documented in this encounter Patient Instructions Patient InstructionsBelkys Bennett LPN - 12/09/2016 10:00 AM EST General Post-Operative Instructions Do not drink alcohol or take any medicines containing aspirin, ibuprofen, or vitamin E for the firsttwo days after your surgery unless it has been prescribed by a physician. These may increase the chance of bleeding. Do not smoke for a minimum of 5 days after surgery. Do not get your bandage wet. Avoid public pools, lakes, oceans, and hot tubs until the wound has healed. In general, no exercise is permitted for 7 days after surgery. For wounds on the arms, legs and trunk, avoid heavy lifting or any activity that will pull or strain the wound for 3 weeks minimum. Certain surgeries will require longer periods off from exercise as instructed by your doctor. Potential Complications Pain: Most patients have little or no pain. If your wound hurts, apply an ice pack for 15 minutes out of every hour until bedtime. Ice compresses should be done OVER the pressure bandage. Do not apply ice right on the skin. Ice should be placed in a plastic bag, then wrapped in a towel and applied to the bandaged wound. A bag of frozen peas wrapped in a towel also works well. If your wound still hurts, you can take one Tylenol 500mg every 4-6 hours. Increasing pain, or pain not relieved by Tylenol, should be reported to our office. Infection: Infection is not common when the wound is well cared for. If the wound is open (not sutured) pink drainage or a slight yellow film on your bandage for an open wound is normal and is not an infection. It is also normal for the edges of the wound to be pink or red, but redness should not spread out beyond the wound edges. If you notice any of these signs of infection, please call the clinic. ??? Increased pain or swelling of the wound ??? Redness spreading out from the wound ??? Green, thick, or foul smelling wound drainage ??? Fever or chills Bleeding: It is normal to see a small amount of blood on the pressure bandage when you remove it. Ifblood leaks out of the bandage within the first 48 hours, hold firm pressure directly over top of the bandage without removing it for 15 minutes. If bleeding does not stop, hold pressure for another 15minutes. If bleeding still has not stopped, call our office immediately or go to your local urgent care or emergency room. If blood accumulates under the sutured area, this is called a hematoma. Your wound will become swollen and very hard to the touch. You may experience increasing amounts of pain. This requires attention, and our office should be notified. Swelling and Bruising: These side effects are fairly common, but usually resolve in 2-3 weeks. Areasof the mouth and eye can last longer. Swelling and bruising can be reduced by applying an ice pack over the dressing for 15 minutes out of every hour for the rest of the day of surgery. Swelling around the eyes and neck is normal if you have had surgery to the forehead, eye area, nose,or cheeks. In fact, one or both eyes may swell shut. Swelling will be worse in the morning and improve during the day. If your wound is on your face, head or neck: ??? Sleep with your head raised on 2 pillows to reduce swelling ??? Do not bend over with your head lower than the level of your heart. Bend your knees and not your back to stoop down. If your wound is on your arm or leg: ??? Keep your arm or leg raised above your heart as much as you can, such as putting your leg on a pillow when lying down, particularly for the first 48 hours. This will help prevent swelling and promote healing. Wounds on the arm or leg may heal more slowly than other areas ??? Use a compression stocking or tess wrap if instructed to do so Numbness: There may be a loss of motor (muscle) or sensory (feeling) nerve function. Not infrequently, the tumor invades nerve fibers. When this is the case, the nerves must be removed along with the remainder of the tumor. At other times, the tumor or the tissue moved in the reconstruction of the defect is adjacent to nerve fibers. At these times, nerves may also be severed or injured. If a sensory nerve is injured or removed, numbness results. Sensation will usually, but not always, return. It maytake up to 24 months for sensation to return. If a motor nerve is involved, you may be unable to move the muscle that nerve served. An example of this would be the inability to wrinkle one side of your forehead. Occasionally, this nerve function will return over a prolonged period of time, but this is less common than resolution of sensory deficits. Scarring: There is always some scarring from any wound. Some people may have thickened scars, but these often flatten out in 3-6 months. Occasionally injections are used to help flatten thick scars. Time improves most scars - wound healing actually takes 1-2 years before it is completely finished. Cover- up make-up may be used once the wound has healed. Other questions or concerns? Please do not hesitate to contact us at . On evenings and, your call will be automatically forwarded to our answering service. Ask them to contact Dr. Staton, and he will call you back. Wound Care for Sutured Wounds When to do Wound Care You should start wound care on Friday. Keep your dressing clean and dry until then. Clean your wound once a day until the sutures are removed. Supplies You May Need to Buy: ???Clean cotton swabs (Q-tips) ???Vaseline or white petrolatum ???Non-stick gauze (Telfa pads) or Band-Aids ???Tape Care of Wound 1. Assemble all supplies prior to dressing change 2. Wash your hands well with soap and water 3. Take off the old dressing. If it sticks, wet the edges of the dressing with water, or remove it in the shower. 4. Re-wash hands 5. Shower once a day with the bandage off, or clean the area under running tap water. Lather gently with soap and water, then rinse and blot dry. 6. Apply a small amount of Vaseline (white petrolatum) or Aquaphor in a thin layer over the suture line. You may use a clean cotton swab to apply the ointment, rolling the swab gently over the wound. 7. Cover with a non-stick gauze thick enough to absorb any drainage and protect the wound. Use papertape or Band-Aids to keep the gauze in place. Smaller wounds may be simply covered with an appropriately sized adhesive bandage. Skin near the surgery site may appear and feel tight. This relaxes in time. A scar is strong at 30 days, but not mature for 12 months or more. It is important to practice strict photoprotection for at least 12 months after surgery to ensure optimal appearance of your scar. Exposure to sunlight can result in permanent darkening of the scar; itcan also slow healing and promote inflammation in the scar. Use of broad-brimmed hats, photoprotective clothing, and once the wound has healed, regular use of broad spectrum sunscreen (covering both UVA and UVB) with a minimum SPF of 30 is recommended. We recommend considering using a sunscreen which includes zinc oxide. Stitches below the skin will be absorbed by the body within 2-3 months. Sometimes a stitch works itsway up through the skin. This is not necessarily a problem. If you have any questions about this, please call. If you need any help or have any questions, please call our clinic at [phone] documented in this encounter Progress Notes Erasmo Staton MD - 12/09/2016 10:00 AM EST [facility] DERMATOLOGY - MOHS SURGERY [address] [facility] [address] Dept: [phone] Dept Loc: [phone] Juan Daen [phone] [id number] Chief Complaint Chief Complaint Patient presents with ??? Basal Cell Carcinoma HPI 61 y.o. old male here for above. 1. Location: Rt tragus 2. Duration: unknown 3. Timing: constant 4. Quality: asymptomatic 5. Prior treaments: none Patient seen by request of Dr Francisco for evaluation of biopsy proven skin cancer. Allergies to Medications Review of patient's allergies indicates no known allergies. Medications Current Outpatient Prescriptions: ??? nicotine (NICODERM CQ) 21 mg/24 hr Patch 24 hr, Place 1 patch onto the skin every 24 hours., Disp: , Rfl: ??? ibuprofen (ADVIL;MOTRIN) 200 mg Tablet, Take 200 mg by mouth every 6 hours as needed for Pain. Reported on 12/09/2016, Disp: , Rfl: Past Medical History NO YES Comments h/o prior Mohs X h/o other skin CA X h/o cancer - other than skin X Cardiovascular disease (Heart attack, stroke, TIA, stents, etc) X Hypertension X Pacemaker X Implantable defibrillator X Joint replacement X Artificial heart valves/murmur X Diabetes X Hepatitis/jaundice X HIV disease X h/o Herpex Simplex (oral) X h/o transfusions X Tuberculosis X Take antibiotics before going to dentist/require pre-op antibiotics X /nursing X Other medical conditions Past Surgical History Past Surgical History Procedure Laterality Date ??? Mohs surgery Right 12/09/2016 BCC Rt tragus ??? Appendectomy ??? Hernia repair ??? Skin biopsy head/neck ROS NO YES Comments Bleeding problems (leukemia, lymphoma, ITP, TTP, hemophilia, etc) X Anemia X Wound healing problems X h/o thick scars, keloids X double joined X breathing problems X fainting/dizziness X nervous problems X headaches X seizures X thyroid disease X kidney disease X liver disease X muscle/bone disease x Osteoarthritis Rt hip Social History Social History ??? Marital status: Spouse name: N/A ??? Number of children: N/A ??? Years of education: N/A Social History Main Topics ??? Smoking status: Former Smoker Packs/day: 0.75 ??? Smokeless tobacco: None Comment: quit 10/30/2015 ??? Alcohol use No ??? Drug use: None ??? Sexual activity: Not Asked Other Topics Concern ??? None Social History Narrative Family History Problem Relation Age of Onset ??? Cancer Mother ??? Skin Cancer Neg Hx Exam Vitals Vitals: 12/09/16 1035 BP: 133/86 Pulse: 82 Gen: Pleasant, well-appearing, in no acute distress HEENT: anicteric sclera, no blepharitis Skin: Scalp: Head/Face: bx site rt tragus Eyelids: Neck: Lips: Rt arm/hand: Lt arm/hand: Trunk: Rt leg/foot: Lt leg/foot: LN: BIOPSY RESULTS: 09/16/2016 Skin, right tragus, shave biopsy: - BASAL CELL CARCINOMA, NODULAR TYPE, transected Assessment/Plan: 1. Bcc, rt anterior ear/tragus We discussed the treatment options in detail including Mohs, standard excision, and EDC. Patient with new problem to me. Patient given opportunity to ask questions; all questions answered. Patient expresses understanding and has decided to proceed with Mohs surgery. We further discussed Mohs surgery and repair options including indications, cure rates, expected post-op outcome and healing, and potential risks/complications including bleeding, scarring more than anticipated, recurrence, nerve damage, and potential need for additional surgery or surgical revision. The consent form was reviewed and all questions answered. Erasmo Staton MD, PhD SURGEON and PATHOLOGIST: Erasmo Staton MD, PhD OPERATING ROOM DATA Room #: 1 Surgery/Procedure Date: SAME ANESTHESIA: Lidocaine 0.5% and Marcaine 0.125% with 1:200,000 epinephrine, buffered with 0.1 mEq/mL sodium bicarbonate 5.5 cc PREOPERATIVE DIAGNOSIS DX: BCC LOCATION: Right tragus PREOPERATIVE SIZE: 0.8 x 1.0 cm INDICATION: Removal of skin cancer, critical location AUC # 9 H OPERATION/PROCEDURE Mohs micrographically controlled excision POSTOPERATIVE DIAGNOSIS DIAGNOSIS: SAME SURGICAL DEFECT SIZE: 1.5 x 1.7 cm COMPLICATIONS: None ESTIMATED BLOOD LOSS: Less than 5 cc DESCRIPTION OF OPERATION/PROCEDURE The nature and purpose of the procedure, associated risks, and possible consequences and complications and alternative forms of treatment were explained in detail. The patient identified the planned surgical treatment area, the visible borders of which were delineated with a skin marker. An informed op erative consent and photo permit was obtained. The patient was positioned, prepped, and draped in the usual sterile manner. The treatment area was infiltrated with local anesthetic. STAGE I: A curette was used to debulk any grossly visible tumor and to define the extent of the tumor. A 2-3 mm rim of normal appearing skin was excised at a 45 degree angle deep to subcutis. Mcfadden were made onthe skin to show micrographic specimen orientation. Hemostasis was achieved with electrodessication and a dressing was placed. The patient tolerated the procedure well and no complications were noted. The specimen was oriented, processed as two sections, chromacoded, mapped, and submitted for horizontal frozen sections. Interpretation of the frozen sections was by Dr. Staton. The tumor consisted of aggregates of basaloid cells with relatively uniform hyperchromatic nuclei with invasion of the dermis. Upon review of the horizontal frozen sections of Stage I, residual tumor was identified at the margin of the frozen section specimen and appropriately oriented and marked on the patient's map. STAGE II: The patient was returned to the procedure room and the area was prepped and draped. All residual areas were delineated, infiltrated with local anesthetic, and excised with a 2-3 mm rim of normal appearing tissue around the affected aspect(s) of the defect deep to muscle. Mcfadden were made on the skin toshow micrographic specimen orientation. Hemostasis was achieved with electrodessication. The patienttolerated the procedure well and no complications were noted. The specimen was oriented, processed as one section, chromacoded, mapped, and submitted for horizontal frozen sections. Interpretation of the frozen sections was by Dr. Staton. Upon review of the horizontal frozen sections of Stage II, no residual tumor was identified at the margins of the frozen section specimen. Repair: NAME: Juan Dean DATE OF : 1955 SURGEON: Erasmo Staton MD, PhD PREOPERATIVE DIAGNOSIS: 1.5 x 1.7 cm defect status post Mohs POSTOPERATIVE DIAGNOSIS: same LOCATION: Right tragus/anterior ear PROCEDURE: Transposition (Rhombic) Flap FLAP SIZE: 2.2 x 2.5 cm TOTAL FLAP SIZE (flap + defect): 8.05 sq cm 0.5% LIDOCAINE, 0.125% MARCAINE: 6 cc COMPLICATIONS: None ESTIMATED BLOOD LOSS: Less than 10 cc INDICATIONS: The patient underwent Mohs excision of a cutaneous malignancy who now presents with a defect of the right tragus. The patient wishes to preserve baseline appearance and function and to avoid protracted healing. Reconstruction alternatives were discussed, and based on the size, depth, and location of the defect as well as the characteristics of the surrounding tissue, it was felt that to obtain maximum functional and cosmetic result, the patient would do well with a transposition flap. The planned procedure, principles of treatment, anticipated results, recovery, and potential complications including a less than optimal result, bleeding, infection, flap loss, local tissue distortion, and potential need for additional surgery were discussed, and with the patient???s consent, the following procedure was performed. PROCEDURE: The patient was shown to the operating suite and place in a supine position. Time out performed. The planned transposition flap was drawn. The surgical field was prepped and draped in the usual fashion. Local anesthetic was used to infiltrate the area. After waiting several minutes for adequate analgesia and vasoconstriction, incisions were made as drawn. The flap was cautiously elevated with blunt and sharp dissection. Surrounding tissues were undermined. The defect edges were trimmed asnecessary and a standing cone at the point of rotation was removed by triangulation of tissue as indicated to achieve normal contours. Meticulous hemostasis was achieved with spot electrocoagulaton. The flap was transposed into position and then secured using 4-0 Monocryl for subcuticular sutures and 5-0 Prolene for epicuticular sutures. The flap had good color and contour after the surgery. The patient tolerated the procedure well. A pressure dressing was applied. Post-procedure expectations, including wound care, discomfort management, and activity restriction, were reviewed. The patient left theoperative suite in good condition. The patient was instructed to return in 7 days for a wound check.Staged revision planned if ultimately necessary. Erasmo Staton MD, PhD documented in this encounter Plan of Treatment Upcoming Encounters Date Type Specialty Care Team Description 11/04/2022 Office Visit Dermatology Johnny Castellanos MD [facility] [address] [place], [place] [address] (Wo rk) documented as of this encounter Visit Diagnoses Diagnosis Basal cell carcinoma of tragus, right documented in this encounter Care Teams [employer] Relationship Specialty Start Date End Date Hermila Hamilton APRN PCP - General Family Medicine 08/30/[address] [place] [id number] documented as of this encounter
--- OUTSIDE RECORDS SUMMARY | 2022-08-20 14:07 | XMS_ITS | Encounter Summary ---
:1955 Author Organization [facility] [place] [address] Care Team Providers Name Role Phone Hermila Hamilton ARYA Primary Care Provider Reason for Visit Reason Comments Basal Cell Carcinoma Consultation (Routine) - Closed Specialty Diagnoses / Procedures Referred By Contact Refer red To Contact Dermatology Diagnoses Basal cell carcinoma (BCC), unspecified site Johnny Castellanos MD Iriondo, Manuel, MD [facility] DR [facility] [place] [place] [address] [place] [address] Fax: Referral ID Status Reason Start Date Expiration Date Visits V isits Requested Authorized [id number] Closed Consult, 11/21/2021 11/21/2022 1 1 Test & Treat Encounter Details Date Type Department Care Team Description 01/10/2022 Procedure visit Dermatology at [facility], Basal cell carcinoma Toro KONG of right ear [address] [facility] [id number] KARLI [phone] [place], [place] [address] Social History Tobacco Use Types Packs/Day Years Used Date Heavy Tobacco Smoker Cigarettes 0.5 Smokeless Tobacco: Never Used Comments: quit 10/30/2015 Alcohol Use Standard Drinks/Week Comments No 0 (1 standard drink = 0.6 oz pure alcoho l) Sex Assigned at Date Recorded Not on file documented as of this encounter Last Filed Vital Signs Vital Sign Reading Time Taken Comments Blood Pressure 148/90 01/10/2022 8:00 AM EST Pulse 78 01/10/2022 8:00 AM EST Temperature - - Respiratory Rate - - Oxygen Saturation - - Inhaled Oxygen Concentration - - Weight - - Height - - Body Mass Index - - documented in this encounter Patient Instructions Patient InstructionsCoccMelissa schuler RN - 01/10/2022 10:07 AM EST Your staff surgeon today was John Clarke MD. SECOND INTENTION HEALING Second intention healing means healing on its own. It was decided that your wound will heal by nature, on its own, without reconstruction or significant stitching. Your wound may heal within days if it is small, shallow, and if you are a fast healer. However, a larger and deeper wound may take weeks to months to completely heal. One of the advantages of a wound healing on its own, is that you do not have many physical restrictions. You may want to take it easy for the first 48 hours after surgery to prevent bleeding, but youmay otherwise resume exercise and return to work. You may begin showering 48 hours after surgery but avoid direct water pressure from the shower head to your wound to prevent bleeding and tenderness/pain. Keep below as a reference while caring for your wound(s): Wound Care Gently remove your initial bandage (after 48 hours from surgery). It is normal to have swelling and bruising. Begin wound care as below. If your initial bandage only stayed on for 24 hours (for example, falls off sooner), this is okay. Resume your wound care and bandaging instructions as below. Change your bandage once a day (and whenever it becomes wet or soaks through) until wound is healed. For bandage changes: Wash hands with soap and water, or use gloves that you can purchase at a local pharmacy or drug store. Clean the surgical area with cotton-tipped swabs or soft gauze dipped in soapy water (recommend liquid soap in clean room temperature water). Roll the cotton swab over the incision with soapy water, then with plain water, and then gently pat dry. Do not scrub the area with a washcloth. Do not put direct shower water pressure onto your wound. Do not pick off any scabs. It is okay to allow soapy water to run over your wound in the shower, however, as an alternative means of cleaning your wound. If you cannot remove any bloody or crusted areas, you may soak the area with wet gauze first for 15 to 20 minutes to help soften it Pat the area dry with clean gauze or cotton swabs. Do not rub. Use a cotton swab or two to apply a generous layer of petrolatum (or Mupirocin ointment if prescribed) over the incision lines and any open-wound areas. If it is difficult to get the patrolatum onto your wound, you can try applying it to the non-stick bandage itself and then putting the bandage over the wound. Make sure your tube or jar of petrolatum (Or Mupirocin ointment if prescribed) is new or unused to prevent prior contamination from entering your wound. Avoid double dipping. After applying petrolatum or ointment, use a clean nonstick gauze or other nonstick dressing, such as Telfa. This may be purchased over the counter at a drug store. Do not use regular gauze as it will stick to your wound and can peel off healing skin with bandage changes. Secure the bandage with paper tape or a bandage. Band-aids are okay, but typically have more adhesive that can irritate the skin compared to paper tape. This can be purchased at a drug store. Continue this wound care daily until your wound has healed or until otherwise specified by your doctor. Keep in mind that if you do not want to use a bandage at all due to difficulty, irritation of skin, cost, or inconvenience --- you can certainly avoid bandages altogether. However, it is imperative that you continue with topical petrolatum (plain, fragrance-free; or Mupirocin ointment If prescribed) .This may need to be applied several times daily if it gets wiped off, washed off, or dries out. Things to purchase for wound care: -Nonstick gauze -A tube or tub of petrolatum jelly (fragrance-free, no dye, not lotion) -paper tape -cotton swabs -gloves (optional) -Dial or other antibacterial liquid soap After Surgery Avoid tobacco, smoking/vapors, and cannabis (marijuana) for at least 3 weeks after your surgery. Smoking impairs healing and leads to worse scarring. Even cutting back on tobacco is helpful if you cannot stop or avoid this completely. Limit alcohol intake to one drink per day over the next 3 days. Do not participate in athletic activities or heavy chores, or lift anything heavier than 10 pounds, for 2 weeks. Avoid climbing the stairs unless necessary during this time as well. You may resume youractivities as usual after roughly 2 weeks. (keep in mind that all wounds are different and dependingon size or depth it may be ok for you to resume normal activity sooner than 2 weeks, just check withyour doctor first) Avoid swimming, hot tubs, and direct water pressure for 3 weeks after surgery. You may shower once your initial bandage comes off in 48 hours, however. If you do choose to swim in a pool, pond, merritt, or ocean while your wound is still open, please make sure to wash the wound with soapy water immediately. There is also the option to apply a gauze soaked in diluted vinegar for 15 minutes immediately after swimming (see recipe at the bottom of our instructions). The vinegar soak can help prevent infection, and can also help if you think your wound is getting smelly. Vinegar soaks are especially helpful for healing ear wounds. Avoid antibiotic ointments such as triple antibiotic creams. Stick with your wound care instructions, please. Whenever possible, it is helpful to take photographs with your camera or cell phone of any problems or concerns you see with your wound. We often ask for photos when you call with questions. Your wound will first develop is squishy yellowish substance at the bottom of the wound called granulation. This is your healing flesh. Once the inside of your wound has healed in, then the skin edges will begin to follow by getting closer and closer together until the wound has closed completely. Therate of how fast you heal is highly variable, but doing proper wound care will help you heal more quickly. Keep your follow-up appointments and make sure to continue to have your skin checked, as often as isrecommended by your clinic clerk, for new skin cancers. This is once per year for most patients. Your can expect your scar to be red for several weeks with gradual fading of the redness over the next few months. To optimize your scar, and best cosmetic result, please avoid direct sunlight to your healed scar for the first 6 months following surgery. UV ray exposure from the sun may cause the redness to last longer, or to cause permanent darkening of your scar. You can avoid sun by covering your incision with a bandage when outdoors, or wearing SPF 30 to 50 sunscreen (broad spectrum). Bruising. It is very common to have bruising and swelling of the eyelids or other areas of face if you had surgery on the forehead, temples, cheeks, or nose. This is expected in most patients and will gradually resolve. If you have severe pain not resolving with over the counter medicines, please call us. You can use ice packs or a bag of frozen peas for 15-20 minutes 3-4 times daily to any areas of swelling but do not get bandages wet or dirty. Use caution not to put the icy item directly on your wound, directly onto your skin as this can damage skin, and avoid prolonged use more than 20 minutes. [address] best way to use ice packs is over the bandage, or a light cloth/paper towel between the ice pack and your skin. You can ice for as many days as needed until swelling has resolved. Antibiotics: If you were given antibiotic prescription, it is important to start them the evening of your surgerydate. Most patients do not need antibiotics after surgery. For pain: Most patients of different ages do not require pain medications. If you do feel soreness or pain, start by taking over the counter extra strength acetaminophen (up to 3000 mg in a 24 hour period). Generally, we like you to avoid NSAIDS (non-steroid anti-inflammatory drugs such as ibuprofen) for the first 48 hours after surgery as this can increase risk of bleeding. However, if acetaminophen is not helping with pain, you can alternate acetaminophen with iburpofen (ibuprofen 400 mg every 4 hours.) Icepacks over your bandage without getting your bandage wet can also help with pain and swelling, for up to 20 minutes at a time (20 minutes off between icing sessions). Frozen peas work well as ice packs. THIS IS AN EXAMPLE OF A PAIN TREATMENT SCHEDULE: 1) You can take 500 mg acetaminophen one tablet by mouth at 6:00pm. This is over the counter. 2) You can take 400 mg of ibuprofen two hours later, at 8:00 pm, or other NSAID such as naproxen, aslong as it does not interact with your other medications and your other doctors have not told you toavoid this. This is over the counter. Check to see how many milligrams (mg) each of your ibuprofen tablets are. Most of the time, ibuprofen comes in 200 mg tablets, so 400 mg would mean taking two of these tablets or capsules. 3) You can take 500 mg of acetaminophen at 10:00 pm. Keep track of your total acetaminophen in a 24 hour period as your maximum should be 3000 mg total in a 24 hour period of this medication. 4) At midnight, you can take another 400 mg of ibuprofen. 5) you can continue on this schedule over the next 2 days, making sure to keep tabs of your total acetaminophen. If you are still in pain after trying the above, please call us. When to call your surgeon: Fever of 100.4 degrees Fahrenheit or higher Bleeding not controlled with direct firm pressure to your wound. Bleeding is most common in the first 48 hours. Pain that is worsening and not relieved by over the counter medications such as acetaminophen (up dm5590 mg in a 24 hour period) Wound reopening after stitching Pus or bad odor from your wound Worsening redness and warmth around your wound If you think your surgery site is infected, please call us before seeking care or antibiotics from other providers Please call us before seeking care in an emergency room or primary care. If you do call, please leave your full name, phone number, date of , date of surgery, and medical record number if you have it. IF YOU ARE TRYING TO REACH US AFTER HOURS (before 8am, after 5pm, or on the weekends): Call the component overhaul operator or [phone] and ask for the clinic clerk on-call. If you have any non-urgent questions or concerns, please feel free to call my office or contact me through our patient portal, [email or web address], at [email or web address] How to contact us during business hours Mohs scheduling or Mohs follow-up appointments: [phone] OPTIONAL RECIPE FOR VINEGAR SOAKS: VINEGAR SOAK RECIPE Add ?? (half) cup regular household white vinegar and add to 1 quart of clean room temperature water. You can store the solution itself in a jar in the refrigerator. Daily: take a clear thin towel or gauze dressings and pour the vinegar until the gauze is soaking wet. Apply the soaking wet gauze to your wound for 15 to 20 minutes. Do this twice daily ideally, once daily if you are unable to do this daily. Afterwards, wash with regular soap and water and coat with copious (thick) amounts of Vaseline and dress it as instructed. If the wound is on your leg, you can follow with a compression sock or WILMER bandage as this will minimize swelling and speed up healing as well. The vinegar will serve as an antiseptic and help your wound heal more quickly. If the solution stings or hurts, you can make it more dilute with more water. Continue these vinegar soaks until your wound is healed. It may take several weeks. documented in this encounter Progress Notes John Clarke MD - 01/10/2022 8:00 AM EST Images from the original note were not included. Summary of Procedure(s): Site: right posterior ear Tumor Type: Basal Cell Carcinoma, nodular Stages to clear tumor: 2 Repair: granulation Images: The patient was asked to call with any issues and is aware that I am available 16/06 should questionsarise. John Clarke MD Mohs Micrographic Surgery and Dermatologic Oncology Department of Dermatology Please note that I have reviewed the preoperative checklist from today's nursing visit including relevant social history and medications. I have reviewed the preoperative photos if available and the biopsy report. VITAL SIGNS: BP 148/90 (BP Location (NBP): Right arm, Patient Position: Sitting, BP Cuff Sizes: Adult (25-34 cm)) Pulse 78 PHYSICAL EXAMINATION: General: patient is awake, alert, oriented and in no acute distress. Skin: Focused examination of surgical site(s) performed which shows a well healed biopsy site. PHYSICIAN REVIEW OF REPORTS, RECORDS, IMAGES: 1) The accompanying pathology report(s) associated with aforementioned biopsy slide(s) were/was alsoreviewed. Assessment: Juan Dean is a 66 y.o. male presenting for: 1. Biopsy-proven basal cell carcinoma, nodular pattern, located on the right posterior ear. Plan: 1. Findings from the biopsy report, today's clinical exam, and other pertinent details were reviewedwith patient today. All questions were answered. 2. Discussed treatment options based on the above findings. We recommended Mohs micrographic surgeryfor treatment of this tumor. Mohs micrographic surgery was indicated due to patient, site and/or tumor characteristics (see operative report for specific indication). 3. We discussed risks, benefits, and alternative treatment options to the Mohs micrographic surgery procedure and pertinent information including but not limited to the following: ?? Risks include bleeding, infection, scar, recurrence, incomplete tumor removal or inability to cure with surgery alone if the tumor features are more aggressive than the initial pathology indicates. Occasionally, additional adjuvant treatments may be recommended. Additional risks include large wound, prolonged wound and healing, pain, swelling, bruising, increased appearance of vessels or worseningerythema of baseline skin; more rarely risks include damage to underlying structures such as nerves,cartilage, or muscle which could lead to temporary or permanent loss of sensation or motor function. ?? Benefit is precise tumor removal ?? If reconstruction is performed, it is specific to the patient and defect. ?? Discussed that the shape, size, depth of the wound is often not known until the tumor is cleared and thus the reconstruction options are sometimes not known until after tumor clearance. Occasionally, referrals to other providers may be recommended for reconstruction based on patient preference and need. ?? Reviewed the pros and cons of common reconstructions used for this tumor type, size, and location, and that reconstruction may lead to change in appearance. ?? Natural history of scar was discussed, including that the scar will continue to mature for 1-2 years. Recommended avoidance of special ointments or scar creams, and avoidance of direct sun exposure to the scar for optimal recovery. ?? Reviewed that there are some aspects of cosmesis that are dependent on patient's characteristics such as age, skin laxity/texture factors, inflammatory skin diseases such as rosacea, prior surgery/radiation, degree of actinic damage, smoking status, strength of the patient's immune system, diligentwound care, medications, and genetics. ?? Having Mohs surgery may lead to physical limitations for optimal healing, such as restricted physical activity and heavy lifting. 4. The nature of sun-induced photo-aging and skin cancers was discussed. Recommended sun avoidance when possible, especially peak hours of sun 10 am to 2pm, protective clothing such as wide-brimmed hats and long-sleeved clothing, and the use of SPF broad-spectrum sunscreen SPF 50 or higher. 5. Signs and symptoms of skin cancer reviewed. Patient to report any new, changing, or symptomatic lesions and follow up with his or her clinic clerk or other skin provider. 6. Discussed avoiding direct sun exposure to scars for best cosmetic result. Note initiated by JEAN MARIE Brar RN has performed the documentation for this encounter in the presence of and actingas a scribe for Dr. Clarke. I performed the above scribed service and agree with the accuracy of the documentation in this encounter. Reviewed and signed by: John Clarke MD Dermatology [facility] John Clarke MD - 01/10/2022 8:00 AM EST Mohs micrographic Surgery Operative Report Patient name: Juan Dean : 1955 Date: 01/10/2022 Staff Surgeon: John Clarke MD Nursing/Service Dispatcher(s): Melissa Blankenship RN, Cheri Elliott RN, Lola Morelos LPN Imaging Specialist (s): Tim Red Pre-operative diagnosis: Basal Cell Carcinoma, nodular pattern Post-operative diagnosis: Basal Cell Carcinoma, nodular pattern Location/Site: right posterior ear Procedure: Mohs micrographic surgery Indication(s) for Mohs micrographic surgery: Anatomic location for tissue conservation Stages: 2 Preoperative size of tumor: 1.5 x 1.0 cm Stage I The nature and purpose of the procedure, associated risks, possible consequences and complications,and alternative forms of treatment were explained in detail. We reviewed the possible repairs based on the clinical appearance of tumor but discussed that often the repair options may not be known until the tumor has arina extirpated. Informed consent and permission to take photographs were obtained. The site was confirmed with the patient/authorized financial foundations representative/referring physician and/or a photograph form time of biopsy. A pre-operative time-out (procedural pause) was conducted with no unresolved d iscrepancies noted. Local anesthesia was obtained with 1% lidocaine with 1:100,000 epinephrine. The surgical site was prepped and draped in the usual sterile manner. With all visible gross tumor completely excised, the borders of the tumor and 2-3 mm margins were excised as a complete layer. Hemostasis was achieved by electrocoagulation. The excised tissue was oriented and divided into 2 sections, chromacoded, and submitted for frozen sections. The patient tolerated the procedure well and without complications. On microscopic evaluation of the frozen sections, residual tumor was identified as basal cell carcinoma on section 1. Stage II The surgical site was re-anesthetized with 1% lidocaine with 1:100,000 epinephrine, re-prepped and redraped in a sterile manner. The residual tumor was re-excised as a complete layer 2-3mm in thickness using the Mohs map to delineate area of residual tumor. Hemostasis was achieved with electrocoagulat ion. The tissue was oriented and divided into 1 section, chromacoded, and submitted for frozen sections. The patient tolerated the procedure well and without complications. On microscopic evaluation of the frozen sections, no residual tumor was identified on the deep or outer border of the sections. Depth of excision perichondrium Final defect size: 1.9 x 2.0 cm John Clarke MD Mohs Micrographic Surgery and Dermatologic Oncology Department of Dermatology [address] [place] [address] Repair Operative Report (Second intention) Patient name: Juan Dean : 1955 Date: 01/10/2022 Staff Surgeon: John Clarke MD Supervisor Irrigation(s): Same as above Clinical Diagnosis: 1.9 x 2.0 cm surgical defect secondary to Mohs micrographic surgery Location/Site: Right Posterior Ear Procedure: Second intention After reviewing the reconstruction options including primary closure, local flaps, skin graft, and second intention healing, the patient elected to have the post Mohs defect heal by second intention. The surgical site was cleaned and any bleeding hemostasis achieved with electrosurgery. Surgi-foam was placed in the wound and a nonstick gauze pressure dressing was applied. The patient tolerated the procedure well and without complications and was given both verbal and written instruction on postoperative wound care. The patient was discharged in good condition. Total local anesthesia with 1% lidocaine with 1:100,000 epinephrine used: 2.0 cc Total local with 0.25% bupivacaine used: 3.5 cc Note initiated by Cheri Elliott, RN Cheri Elliott, JEAN MARIE has performed the documentation for this encounter in the presence of and actingas a scribe for Dr. Clarke I performed the above scribed service and agree with the accuracy of the documentation in this encounter. Reviewed and signed by: John Clarke Dermat[facility] John Clarke MD Mohs Micrographic Surgery and Dermatologic Oncology Department of Dermatology [address] [place] [address] documented in this encounter Plan of Treatment Upcoming Encounters Date Type Specialty Care Team Description 11/04/2022 Office Visit Dermatology Johnny Castellanos MD [facility] DR KARLI [facility] [place], [place] [address] (Wo rk) Scheduled Referrals Name Type Priority Associated Diagnoses Order S chedule Referral to Outpatient Referral Routine Basal cell carcinoma Ordered: Dermatology (BCC), unspecified 1 site documented as of this encounter Visit Diagnoses Diagnosis Basal cell carcinoma of right ear documented in this encounter Care Teams Athletic Team Physician Relationship Specialty Start Date End Date Hermila Hamilton APRN PCP - General Family Medicine 08/30/[address] [place] [id number] documented as of this encounter
--- OUTSIDE RECORDS SUMMARY | 2022-08-20 14:07 | XMS_ITS | Encounter Summary ---
:1955 Author Organization [facility] [address] Care Team Providers Name Role Phone JoyHermila ARYA Primary Care Provider [phone] Encounter Details Date Type Department Care Team Description 01/09/2022 Telephone Dermatology at [facility] Melissa Blankenship, RN [address] [place] [address] Social History Tobacco Use Types Packs/Day Years Used Date Heavy Tobacco Smoker Cigarettes 0.5 Smokeless Tobacco: Never Used Comments: quit 10/30/2015 Alcohol Use Standard Drinks/Week Comments No 0 (1 standard drink = 0.6 oz pure alcoho l) Sex Assigned at Date Recorded Not on file documented as of this encounter Miscellaneous Notes Telephone Encounter - Melissa Blankenship RN - 01/09/2022 8:12 AM EST Mohs consultation and preoperative note (H&P) Patient Name: Juan Dean Age: 66 y.o. Date of : 1955 Today's Date: 01/09/2022 REFERRING PROVIDER: Johnny Castellanos MD CC: Mohs micrographic surgery for treatment of a cutaneous tumor HPI: Juan Dean is a 66 y.o. male presenting for biopsy-proven basal cell carcinoma, nodular location on the right posterior ear. The dermatologic preoperative information sheet was reviewed with pertinent positive and negative as below. DERMATOLOGIC PRE-OPERATIVE EVALUATION AND REVIEW OF SYSTEMS History of Mohs surgery? yes, previous Mohs with Dr. Shemar katz tragus 2016 If yes, have you ever had Mohs surgery with Dr. Clarke? no Pacemaker/Defibrillator? no Joint replacement or other implantable devices (e.g. Cochlear implant)? If yes then when? Right hip replacement 2018 Do you take a blood thinner? Yes Aspirin 81mg History of organ transplant? no History of artificial valve or stroke? no History of liver disease or bleeding disorder? no Do you have any medical problems that may affect your upcoming surgery? no Do you have any concerns regarding your upcoming surgery? no SOCIAL HISTORY: Makes Own Decisions Yes Hearing aid or other devices: No Relevant travel history or future plans: No Tobacco use (amount per day, type of tobacco): no Do you have any physical limitations that may affect your surgery?: no ALLERGIES: Allergies reviewed MEDICATIONS: Medications reviewed documented in this encounter Plan of Treatment Upcoming Encounters Date Type Specialty Care Team Description 11/04/2022 Office Visit Dermatology Johnny Castellanos MD [facility] ER DR KARLI POOLE-DERMAT [place], [place] [address] (Wo rk) documented as of this encounter Visit Diagnoses Not on filedocumented in this encounter Care Teams Hunter Skin Diver Relationship Specialty Start Date End Date Hermila Hamilton APRN PCP - General Family Medicine 08/30/[address] [place] [address] documented as of this encounter
--- OUTSIDE RECORDS SUMMARY | 2022-08-20 14:07 | XMS_ITS | Encounter Summary ---
:1955 Author Organization [place] [id number] Care Team Providers Name Role Phone Hermila Hamilton ARYA Primary Care Provider [phone] Encounter Details Date Type Department Care Team Description 04/04/2022 Tech Visit Vascular Lab at [facility] Ab dominal aortic aneurysm (AAA) without rupture; [place] [address] Social History Tobacco Use Types Packs/Day [...] 11/04/2022 Office Visit Dermatology Johnny Castellanos MD [facility] ER DR KARLI ANDERSON-DERMAT [place], [place] [address] (Wo rk) documented as of this encounter Procedures Procedure Name Priority Date/Time Associated Diagnosis Comme nts AAA DUPLEX COMPLETE Routine 04/04/2022 8:06 AM Abdominal aorti c Results for this EDT aneurysm (AAA) procedure are in without rupture the results Iliac aneurysm section. documented in this encounter Results AAA Duplex, Complete/Bilateral (04/04/2022 8:06 AM EDT) Component Value Ref Test Analysis Performed At [facility] Range Method Time Signature VB Text Department: Vascular Surgery Lab VASCUBASE Report Patient: [id number] (JUAN CARLOS DEAN) CPT: 92515 Referring Physician: MERRILL RICHMOND, POWER PLANT ENGINEER ?? Phone: Indications: F/U AAA and bilateral MAXIM aneurysms. ??? change in size. Findings: Infra Renal Aorta ? PSV (cm/s): 44 ? EDV (cm/s): 0 ? Diam AP (cm): 3.4 ? Diam Lateral (cm): 3.2 Distal Aorta ? PSV (cm/s): 22 ? EDV (cm/s): 0 ? Diam AP (cm): 4.3 ? Diam Lateral (cm): 4.4 Common Iliac Artery, Proximal, Right ? PSV (cm/s): 46 ? EDV (cm/s): 0 ? Diam AP (cm): 3.1 ? Diam Lateral (cm): 3.1 Common Iliac Artery, Proximal, Left ? PSV (cm/s): 103 ? EDV (cm/s): 0 ? Diam AP (cm): 3.3 ? Diam Lateral (cm): 3.3 Interpretation: Patent infra renal abdominal aortic aneurysm with mural thrombus vs soft plaque and a maximum diameter of 4.3 x 4 .4 cm (previously 4.0 x 4.3). Patent aneurysmal bilateral common iliac arteries with a maximum diameter of 3.1 cm on the RIGHT (previously 3.1 cm) and 3.3 cm on the LEFT (previously 3.2 cm). Previous AAAs with change from previous value: Date ? DIAM AP ?DIAM LAT ? 3.90 ? 4.40 ? 3.80 (-0.10) ?? 4.30 (-0.10) ? 4.00 (+0.20) ?? 4.30 ( 0.00) Current Exam ?? 4.30 (+0.30) ?? 4.40 (+0.10) Electronically Signed by: MEAGHAN BUSTAMANTE on 2022-04-04 11:03: 31 AM VB Text End of Report VASCUBASE Report Specimen (Source) Anatomical Collection Method Collection Time Re ceived Time Location / / Volume Laterality 04/04/2022 8:06 AM EDT Merrill Richmond POWER PLANT ENGINEER VASCULAR ORDERABLES Performing Organization Address City/State/ZIP Code Phon e Number VASCUBASE documented in this encounter Visit Diagnoses Diagnosis Abdominal aortic aneurysm (AAA) without rupture Iliac aneurysm Aneurysm of iliac artery documented in this encounter Care Teams Curtain Stretcher Relationship Specialty Start Date End Date Hermila Hamilton APRN PCP - General Family Medicine 08/30/[address] [place] [address] documented as of this encounter
--- OUTSIDE RECORDS SUMMARY | 2022-08-20 14:07 | XMS_ITS | Clinical Summary ---
:1955 Demographics Home Phone Preferred Language Unknown Marital Status Unknown Oriental Orthodox Affiliation Unknown Race Unknown Ethnic Group Unknown Author Organization [facility] Address [address] [place] [address] Care Team Providers Name Role Phone Unavailable Primary Care Provider Unavailable Encounters Date Type Specialty Care Team Description 08/15/2022 Lab Requisition Clinical Laboratory Jeffrey Aguirre gn prostatic hyperplasia with lower urinary tract symptoms; MD Lei Other obstructi ve and reflux uropathy from Last 3 Months Social History Tobacco Use Types Packs/Day Years Used Date Never Assessed Sex Assigned at Date Recorded Not on file Plan of Treatment Health Maintenance Due Date Last Done Comments Hepatitis C Screen 1955 COVID-19 Vaccine (#1) 1955 Fall Risk Screening 2019
--- OUTSIDE RECORDS SUMMARY | 2022-08-20 14:07 | XMS_ITS | Encounter Summary ---
:1955 Author Organization [facility] Address [place] [id number] Care Team Providers Name Role Phone Hermila Hamilton ARYA Primary Care Provider [phone] Reason for Visit Reason Onset Date Comments Post Procedure Call 12/10/2016 Encounter Details Date Type Department Care Team Description 12/10/2016 Telephone Dermatology Mohs at Mellissa Olsen P ost Procedure Call [place] RN [address] [facility] [address] [place] [address] [place] [address] Social History Tobacco Use Types Packs/Day Years Used Date Former Smoker 0.75 Comments: quit 10/30/2015 Alcohol Use Standard Drinks/Week Comments No 0 (1 standard drink = 0.6 oz pure alcoho l) Sex Assigned at Date Recorded Not on file documented as of this encounter Miscellaneous Notes Telephone Encounter - Mellissa Olsen RN - 12/10/2016 1:54 PM EST Post Op Day: 1 Procedure: [ x] Mohs Surgery [ ] Excision Reconstruction: [ ] Linear/CLC [x ] Flap [ ] Graft [ ] Granulation [ ] Referral 1. Bandage: [x ] Intact [ ] Not intact/Changed 2. Bleeding: [x] None [ ] Scant post op [ ] Minimal, controlled with pressure [ ] Other: 3. Pain [ ] Minimal, no pain relief needed [ x] Moderate, relief with Tylenol/ice [ ] Severe, Plan: check with MD 4. Swelling: [x ] Minimal, expected result [ ] Moderate, discussed with patient [ ] Severe, Plan: check with MD Wound care questions/concerns: [x ]None [ ]Answered Patient Comments: Pt states he felt a Pop and had pain that lasted for a minute or two when he opened his mouth to eat today. No bleeding. Subsided spontaneously with no further re-occurrence. Asked pt to call office if any further pain or concerns. Pt verbalized understanding and agreement with this plan, and will call with other questions or concerns. Mellissa Olsen RN Dermatology - Mohs Surgery [phone] documented in this encounter Plan of Treatment Upcoming Encounters Date Type Specialty Care Team Description 11/04/2022 Office Visit Dermatology Johnny Castellanos MD [facility] ER DR KARLI ANDERSON-DERMAT [place], [place] [address] (Wo rk) documented as of this encounter Visit Diagnoses Not on filedocumented in this encounter Care Teams Armor Senior Sergeant Relationship Specialty Start Date End Date Hermila Hamilton APRN PCP - General Family Medicine 08/30/[address] [place] [address] documented as of this encounter
--- OUTSIDE RECORDS SUMMARY | 2022-08-20 14:07 | XMS_ITS | Encounter Summary ---
:1955 Author Organization [facility] [place] [address] Care Team Providers Name Role Phone Hermila Hamilton ARYA Primary Care Provider [phone] Encounter Details Date Type Department Care Team Description 10/02/2016 Telephone Dermatology at [facility] Nancy Francisco MD [address] [facility] [place] [address] [facility] [phone] [place] [address] (Wo rk) Social History Tobacco Use Types Packs/Day Years Used Date Current Every Day Smoker 0.75 Sex Assigned at Date Recorded Not on file documented as of this encounter Miscellaneous Notes Telephone Encounter - Kae Tripp - 10/02/2016 3:04 PM EST This patient's , Diane, called to say that they still haven't heard from [facility] RAMIREZ, and that sheis wondering if it is okay for him to wait until November to be seen. (She is unclear if [facility]NACIO RAMIREZ mean the consult or the procedure would be in Nov, as she felt the corporate secretary was abrupt and rude). She is concerned as she isn't sure how fast moving her 's cancer is. She is also concerned that shewon't her from [facility]NACIO GANNONS this week. They would appreciate a call back to confirm if it is okay for Juan to wait until November for MOHS. Juan can be reached back best at [phone]. documented in this encounter Plan of Treatment Upcoming Encounters Date Type Specialty Care Team Description 11/04/2022 Office Visit Dermatology Johnny Castellanos MD [facility] ER DR KARLI ANDERSON-DERMAT [place], [place] [address] (Wo rk) documented as of this encounter Visit Diagnoses Not on filedocumented in this encounter Care Teams School Bus Driver/Teacher Assistant Relationship Specialty Start Date End Date Hermila Hamilton APRN PCP - General Family Medicine 08/30/[address] [place] [address] documented as of this encounter
--- OUTSIDE RECORDS SUMMARY | 2022-08-20 14:07 | XMS_ITS | Encounter Summary ---
:1955 Author Organization [place] [id number] Care Team Providers Name Role Phone Hermila Hamilton ARYA Primary Care Provider [phone] Encounter Details Date Type Department Care Team Description 09/27/2016 Telephone Dermatology at [facility] Nancy Francisco MD [address] [facility] [place] [address] [facility] [phone] [place] [address] (Wo rk) Social History Tobacco Use Types Packs/Day Years Used Date Current Every Day Smoker 0.75 Sex Assigned at Date Recorded Not on file documented as of this encounter Miscellaneous Notes Telephone Encounter - Nancy Francisco MD - 10/01/2016 3:50 PM EST I called the patient and his daughter answered. I asked her to ask him to call us back. Nancy Francisco MD Resident in Dermatology, PGY2 Section of Dermatology, Department of Surgery [facility] Pager [phone] Telephone Encounter - Qasim, Kae T - 09/27/2016 2:26 PM EDT This patient's called me back, returning my call. She wanted to let us know she called [facility] Watson that they told her they were behind and probably wouldn't be calling them to schedule until nextweek, and that Juan probably won't be scheduled until November. Telephone Encounter - Kae Tripp - 09/27/2016 2:01 PM EDT This patient's , Diane, left me a VM stating they haven't heard anything back from the MAN DER[facility] regards to scheduling MOHS. I see the referral was entered by Dr. Francisco 09/20/16. I called Diane back at her work # (as was listed in her VM) and reached her VM. I left a vague message stating I wasreturning her call regarding her 's referral and that I wasn't sure why the other office hadn't contacted them yet, but left the [facility] MOHS phone # and stated I would let Dr. Francisco know they haven't been contacted yet. I left her my direct line in case she has any further questions or concerns. documented in this encounter Plan of Treatment Upcoming Encounters Date Type Specialty Care Team Description 11/04/2022 Office Visit Dermatology Johnny Castellanos MD [facility] ER DR KARLI ANDERSON-DERMAT [place], [place] [address] (Wo rk) documented as of this encounter Visit Diagnoses Not on filedocumented in this encounter Care Teams Drawer In Plain Loom Relationship Specialty Start Date End Date Hermila Hamilton APRN PCP - General Family Medicine 08/30/16 [address] [place] [address] documented as of this encounter
--- OUTSIDE RECORDS SUMMARY | 2022-08-20 14:07 | XMS_ITS | Encounter Summary ---
:1955 Author Organization [facility] [place] [address] Care Team Providers Name Role Phone Susana Hamiltonlene Marcy KOENIG Primary Care Provider [phone] Encounter Details Date Type Department Care Team Description 07/12/2021 Interpretation Only [facility] Hermila Hamilton, [address] [place], [place] [address] [address] [place], [place] [phone] [address] (Wo rk) Social History Tobacco Use Types Packs/Day Years Used Date Former Smoker 0.75 Smokeless Tobacco: Never Used Comments: quit 10/30/2015 Alcohol Use Standard Drinks/Week Comments No 0 (1 standard drink = 0.6 oz pure alcoho l) Sex Assigned at Date Recorded Not on file documented as of this encounter Plan of Treatment Upcoming Encounters Date Type Specialty Care Team Description 11/04/2022 Office Visit Dermatology Johnny Castellanos MD [facility] ER DR KARLI ANDERSON-DERMAT [place], [place] [address] (Wo rk) documented as of this encounter Procedures Procedure Name Priority Date/Time Associated Diagnosis Comme nts CT CHEST WO Routine 07/12/2021 2:07 PM Results f or this CONTRAST (GENERIC) EDT procedure are in the results section. documented in this encounter Results CT Chest wo Contrast (Generic) (07/12/2021 2:07 PM EDT) P athologist Signature PT CLASS O RAD ADMITDTTM RAD PT DRE KONG INFO [id number]^B RAD RISTOL^ROXANE NE EXAM DESC CTCHST^CT RAD CHEST WO CNTRST^RIS Anatomical Region Laterality Modality Chest Computed Tomography Specimen (Source) Anatomical Location Collection Method / Collectio n Time Received Time / Laterality Volume Impressions 07/12/2021 2:28 PM EDT 1. ??6 x 7 x 8 mm pulmonary nodule right middle lobe, at lung base is unchanged since 2017. No new lesion. 2. ??Centrilobular emphysema unchanged Thank you for letting us participate in the care of this patient. ??If you are a health care provider and have any questi ons regarding this report, please contact the number below. ??For patients who have questions please contact the health wound care specialist that requested your imaging first. ? Narrative 07/12/2021 2:28 PM EDT EXAMINATION: CT CHEST WO CNTRST CLINICAL HISTORY: Right middle lobe pulm onary nodule, tobacco abuse TECHNIQUE: 3 mm thick axial contiguous s ections were obtained through the chest via helical acquisition without intraven ous contrast administration. Thin-section reconstructions as well as coronal and sagittal reformatted images were generated. COMPARISON: CT abdomen, July 2017 CT abdomen, January 2020 CT chest, July 2020 FINDINGS: Pulmonary parenchyma: Right middle lobe lung nodule at base, 6 .7 x 5.9 mm, series 4 image 72, unchanged since 2017. Centrilobular emphysema is redemonstrat ed Bilateral basal linear fibrotic/atelecta tic markings are unchanged. Airways: Clear Pleura: No effusion Lymph nodes: No enlarged lymph nodes. Heart, pericardium, and great vessels: U nchanged coronary artery calcifications. No pericardial effusion. No aneurysm. Other mediastinal structures: No mass le cata. Lower neck: No mass lesion. Upper abdomen: Left adrenal gland-13 mm and 1HU left ad renal nodule is unchanged since 2017. Right kidney-pedunculated right upper po le renal cyst is unchanged from January 2020 radiograph. Spleen-unchanged calcified granuloma. Procedure Note Jossy Richardson MD - 07/12/2021Formatt ing of this note might be different from the original. EXAMINATION: CT CHEST WO CNTRST CLINICAL HISTORY: Right middle lobe pulm onary nodule, tobacco abuse TECHNIQUE: 3 mm thick axial contiguous s ections were obtained through the chest via helical acquisition without intraven ous contrast administration. Thin-section reconstructions as well as coronal and sagittal reformatted images were generated. COMPARISON: CT abdomen, July 2017 CT abdomen, January 2020 CT chest, July 2020 FINDINGS: Pulmonary parenchyma: Right middle lobe lung nodule at base, 6 .7 x 5.9 mm, series 4 image 72, unchanged since 2017. Centrilobular emphysema is redemonstrat ed Bilateral basal linear fibrotic/atelecta tic markings are unchanged. Airways: Clear Pleura: No effusion Lymph nodes: No enlarged lymph nodes. Heart, pericardium, and great vessels: U nchanged coronary artery calcifications. No pericardial effusion. No aneurysm. Other mediastinal structures: No mass le cata. Lower neck: No mass lesion. Upper abdomen: Left adrenal gland-13 mm and 1HU left ad renal nodule is unchanged since 2017. Right kidney-pedunculated right upper po le renal cyst is unchanged from January 2020 radiograph. Spleen-unchanged calcified granuloma. IMPRESSION 1. 6 x 7 x 8 mm pulmonary nodule right m iddle lobe, at lung base is unchanged since 2017. No new lesion. 2. Centrilobular emphysema unchanged Thank you for letting us participate in the care of this patient. If you are a health care provider and have any questi ons regarding this report, please contact the number below. For patients w ho have questions please contact the health wound care specialist that requested your imaging first. Electronically signed by: Jossy Richardson MD, [facility] ([phone]), at 07/12/2021 2:28 PM Hermila Hamilton APRN IMG CT ORDERABLES documented in this encounter Visit Diagnoses Not on filedocumented in this encounter Care Teams Broadcaster Relationship Specialty Start Date End Date Hermila Hamilton APRN PCP - General Family Medicine 08/30/[address] [place] [address] documented as of this encounter
--- OUTSIDE RECORDS SUMMARY | 2022-08-20 14:07 | XMS_ITS | Encounter Summary ---
:1955 Author Organization [facility] [place] [address] Care Team Providers Name Role Phone Hermila Hamilton ARYA Primary Care Provider [phone] Reason for Referral Consultation (Routine) - Closed Specialty Diagnoses / Procedures Referred By Contact Refer red To Contact Dermatology Diagnoses Basal cell carcinoma (BCC), unspecified site Johnny Castellanos MD Iriondo, Manuel, MD [facility] [address] [facility] [place], [place] [id number] [place] [address] Fax: Referral ID Status Reason Start Date Expiration Date Visits V isits Requested Authorized [id number] Closed Consult, 11/21/2021 11/21/2022 1 1 Test & Treat Encounter Details Date Type Department Care Team Description 11/21/2021 Orders Only Dermatology at Johnny Solorzano, Basal cell carcinoma Toro KONG (BCC), unspecified [address] [facility] [place] [address] K[facility] ANDERSON[facility]DERMATOLOGY [place], [place] [address] (Wo rk) Social History Tobacco Use Types [...] Visit Dermatology Johnny Castellanos MD [facility] [address] KARLI ANDERSON-DERMAT [place], [place] [address] (Wo rk) Scheduled Referrals Name Type Priority Associated Diagnoses Order S chedule Referral to Outpatient Referral Routine Basal cell carcinoma Ordered: Dermatology (BCC), unspecified 1 site documented as of this encounter Visit Diagnoses Diagnosis Basal cell carcinoma (BCC), unspecified site documented in this encounter Care Teams Marker Assembler Relationship Specialty Start Date End Date Hermila Hamilton APRN PCP - General Family Medicine 08/30/[address] [place] [address] documented as of this encounter
--- OUTSIDE RECORDS SUMMARY | 2022-08-20 14:07 | XMS_ITS | Encounter Summary ---
:1955 Author Organization [facility] [place] [address] Care Team Providers Name Role Phone Hermila Hamilton APRN Primary Care Provider [phone] Reason for Visit Consultation (Routine) - Specialty Diagnoses / Procedures Referred By Contact Refer red To Contact Vascular Surgery Diagnoses Abdominal aortic aneurysm, without rupture Aneurysm of iliac artery Hermila Hamilton, [place] [facility] [place] Vascular Surg 3v NAIL TECHNICIAN TEACHER [facility] [address] [address] Referral ID Status Reason Start Date Expiration Date Visits V isits Requested Authorized [id number] Consult, Test 02/23/2020 02/22/2021 3 [facility] PCP Updated and/or Approved Encounter Details Date Type Department Care Team Description 03/06/2020 TH Visit Vascular Surgery at [facility] Abdom inal aortic aneurysm (AAA) without rupture; (TeleHealth) [facility], NAIL TECHNICIAN TEACHER Iliac aneurysm; [facility] [address], [place] VASCULAR SURGERY [address] [place] [address] [phone] Social History Tobacco Use Types Packs/Day Years Used Date Former Smoker 0.75 Smokeless Tobacco: Never Used Comments: quit 10/30/2015 Alcohol Use Standard Drinks/Week Comments No 0 (1 standard drink = 0.6 oz pure alcoho l) Sex Assigned at Date Recorded Not on file documented as of this encounter Progress Notes Matilda Richmond APRN - 03/06/2020 1:00 PM EDT This is a new patient to the practice who is being evaluated for AAA and was referred by Hermila Hamilton APRN. 64 yo male with known AAA per U/S two years ago and most recently with AAA and B iliac artery aneurysms on CT abd/pelvis for work up for urinary problems. Denies abd/back pain, SOB, chest pain, SD, DVT, HTN, CVA, TIa's, claudication. C/o left hip pain he is waiting for replacement. Denies family history of AAA. He takes statin and ASA daily. He quit smoking end of August 2019. CT 02/14/20 with 4.0 cmAAA and 2.5 cm Left iliac and 2.6 cm right iliac artery aneurysms Due to current restrictions imposed for the coronavirus, a telephone encounter was offered. The patient agreed to proceed with a tele health/telephone visit. PMHx: Past Medical History: Diagnosis Date ??? Abdominal aortic aneurysm (AAA) without rupture 03/06/2020 ??? Basal cell carcinoma 12/09/2016 Rt tragus ??? Hip disease 03/06/2020 S/p right hip replacement 2 years ago waiting for left hip replacement ??? Iliac artery aneurysm, bilateral 03/06/2020 PSxHx: Past Surgical History: Procedure Laterality Date ??? APPENDECTOMY ??? HERNIA REPAIR ??? MOHS SURGERY Right 12/09/2016 BCC Rt tragus ??? SKIN BIOPSY HEAD/NECK Family Hx: Family History Problem Relation Age of Onset ??? Cancer Mother ??? Skin Cancer Neg Hx Social Hx: Social History Tobacco Use ??? Smoking status: Former Smoker Packs/day: 0.75 ??? Smokeless tobacco: Never Used ??? Tobacco comment: quit 10/30/2015 Substance Use Topics ??? Alcohol use: No Medications: Current Outpatient Medications on File Prior to Visit Medication Sig Dispense Refill ??? atorvastatin (LIPITOR) 20 mg Tablet Take 20 mg by mouth daily. ??? tamsulosin (FLOMAX) 0.4 mg Capsule Take 0.4 mg by mouth daily. ??? aspirin 81 mg Tablet, Delayed Release (E.C.) Take 81 mg by mouth daily. ??? [DISCONTINUED] nicotine (NICODERM CQ) 21 mg/[address] 1 patch onto the skin every 24 hours. ??? [DISCONTINUED] ibuprofen (ADVIL;MOTRIN) 200 mg Tablet Take 200 mg by mouth every 6 hours as needed for Pain. Reported on 12/09/2016 No current facility-administered medications on file prior to visit. Allergies: Allergies Allergen Reactions ??? Blueberry Nausea And Vomiting Review of Systems: Constitutional (weight change, fever) - Denies Neuro (dizziness, seizures, numbness, tingling) - Denies Eyes (vision) - Denies Ears, nose, throat (hearing) - Denies Cardiovascular (CP) - Denies Respiratory (SOB) - Denies GI (abd pain, nausea, emesis, blood in stool) - Denies (hematuria, dysuria, frequency) - having w/u related to difficulty urinating. Muscoloskeletal (extremity pain, weakness) -left hip pain Skin (ulcers, rashes) - denies All other ROS negative Decision Making/Plan: 64 yo male with known AAA per U/S two years ago and most recently with AAA andB iliac artery aneurysms on CT abd/pelvis for work up for urinary problems. Denies abd/back pain. Asymptomatic 4.0 cm AAA and right iliac 2.6 cm and left iliac 2.5 cm. Discussed natural history of AAA with patient and over the phone. Discussed warning signs. No vascular intervention warentted at this time. Recommend continuing ASA and stain. Congratulated on smoking cession. Plan RTC in 6 monthswith aortic duplex. Patient verbally consents to this telephone visit and understands that this visit may be billed, similar to a clinic office visit. I provided care to the patient today via telephone call. The total time associated with this visit was 15 minutes. documented in this encounter Plan of Treatment Upcoming Encounters Date Type Specialty Care Team Description 11/04/2022 Office Visit Dermatology Johnny Catsellanos MD [facility] DR KARLI ANDERSON-DERMAT [place] [id number] (Wo rk) documented as of this encounter Visit Diagnoses Diagnosis Abdominal aortic aneurysm (AAA) without rupture Iliac aneurysm Aneurysm of iliac artery Hip disease Unspecified disorder of joint of pelvic region and thigh documented in this encounter Care Teams Shot Blaster Relationship Specialty Start Date End Date Hermila Hamilton APRN PCP - General Family Medicine 08/30/16 [address] [place] [address] documented as of this encounter
--- OUTSIDE RECORDS SUMMARY | 2022-08-20 14:07 | XMS_ITS | Encounter Summary ---
:1955 Author Organization [place] [id number] Care Team Providers Name Role Phone Hermila Hamilton APRN Primary Care Provider [phone] Reason for Visit Diagnostic Test (Routine) - Closed Specialty Diagnoses / Procedures Referred By Contact Refer red To Contact Diagnoses Abdominal aortic aneurysm (AAA) without rupture Bilateral iliac artery aneurysm Merrill Richmond APRN [facility] Vascular Lab 3v Procedures AAA Duplex, Complete/Bilateral [facility] [place] [address] [place] [address] Referral ID Status Reason Start Date Expiration Date Visits V isits Requested Authorized [id number] Closed Test Only 09/21/2021 11/19/2021 1 1 Encounter Details Date Type Department Care Team Description 10/01/2021 Tech Visit Vascular Lab at [facility] Ab dominal aortic aneurysm (AAA) without rupture; [facility] Bilateral [place] [address] Social History Tobacco Use Types Packs/Day [...] Visit Dermatology Johnny Castellanos MD [facility] ER DR KARLI ANDERSON-DERMAT [place], [place] [address] (Wo rk) documented as of this encounter Procedures Procedure Name Priority Date/Time Associated Diagnosis Comme nts PRG DUPLEX SCAN Routine 10/01/2021 8:05 AM Abdominal aortic Re sults for this AORTA,IVC,ILIAC EST aneurysm (AAA) procedure are in VASCL,BP GRFT; without rupture the results COMPLETE STUDY Bilateral iliac section. artery aneurysm PRG DUPLEX SCAN LWR Routine 10/01/2021 8:05 AM Abdominal aorti c Results for this EXTREM ART/GRFT; EST aneurysm (AAA) procedure are in COMPLETE BILAT without rupture the results STUDY Bilateral iliac section. artery aneurysm documented in this encounter Results AAA Duplex, Complete/Bilateral (10/01/2021 8:05 AM EST) Component Value Ref Test Analysis Performed At [facility] Giving Assistant Range Method Time Signature VB Text Department: Vascular Surgery Lab VASCUBASE Report Patient: [id number] (JUAN CARLOS DEAN) CPT: 94525 ICD10: I72.3;I71.4 Referring Physician: MERRILL RICHMOND, DIRECTOR LIFE SALES ?? Phone: Indications: F/U AAA and bilateral MAXIM aneurysms, ? change i n size ICD10 Diagnosis Code: I72.3, I71.4 Findings: Claribel Renal Aorta ? PSV (cm/s): 71 ? EDV (cm/s): 37 ? Diam AP (cm): 2.7 ? Diam Lateral (cm): 2.5 Infra Renal Aorta ? PSV (cm/s): 47 ? EDV (cm/s): 0 ? Diam AP (cm): 3.4 ? Diam Lateral (cm): 3.2 Distal Aorta ? PSV (cm/s): 20 ? EDV (cm/s): 0 ? Diam AP (cm): 4.0 ? Diam Lateral (cm): 4.3 Common Iliac Artery, Proximal, Right ? PSV (cm/s): 54 ? EDV (cm/s): 0 ? Diam AP (cm): 3.1 ? Diam Lateral (cm): 3.1 Common Iliac Artery, Proximal, Left ? PSV (cm/s): 112 ? EDV (cm/s): 13 ? Diam AP (cm): 3.2 ? Diam Lateral (cm): 3.2 Interpretation: Patent infrarenal abdominal aortic aneurysm with a maximum diameter of 4.0 x 4.3 cm (pr eviously 3.8 x 4.3 cm). Patent aneurysmal bilateral common iliac arteries with a maximum diameter of 3.1 cm on the RIGHT (previously 3.1 cm) and 3.2 cm on the LEFT (previously 3.1 cm). Previous AAAs with change from previous value: Date ? DIAM AP ?DIAM LAT ? 3.90 ? 4.40 ? 3.80 (-0.10) ?? 4.30 (-0.10) Current Exam ?? 4.00 (+0.20) ?? 4.30 ( 0.00) Electronically Signed by: MANSOOR WHITE on 2021-10-02 08:08:53 AM VB Text End of Report VASCUBASE Report Specimen (Source) Anatomical Collection Method Collection Time Re ceived Time Location / / Volume Laterality 10/01/2021 8:05 AM EST Merrill Richmond APRN VASCULAR ORDERABLES Performing Organization Address City/State/ZIP Code Phon e Number VASCUBASE Arterial Duplex, Bilat Legs (10/01/2021 8:05 AM EST) Component Value Ref Test Analysis Performed At [facility] Range Method Time Signature VB Text Department: Vascular Surgery Lab VASCUBASE Report Patient: [id number] (JUAN CARLOS DEAN) CPT: 88800 ICD10: I71.4;I72.3 Referring Physician: MERRILL RICHMOND APRN ?? Phone: Indications: ?? Known AAA, p rominent femoral and popliteal pulses, ? CASE FOLDER or POP aneurysm ICD10 Diagnosis Code: I71.4, I72.3 Findings: Common Femoral Artery, Proximal, Right ? Diameter AP (cm): 1.3 ? Diameter Transverse (cm): 1.5 Common Femoral Artery, Mid, Right ? PSV (cm/s): 91 ? EDV: 0 ? Diameter AP (cm): 1.2 ? Diameter Transverse (cm): 1.3 Common femoral artery, Distal, Right ? Diameter AP (cm): 1.5 ? Diameter Transverse (cm): 1.6 Popliteal Artery, Above Knee, Right ? Diameter AP (cm): 1.0 ? Diameter Transverse (cm): 1.0 Popliteal Artery, Mid, Right ? PSV (cm/s): 47 ? EDV: 6 ? Diameter AP (cm): 0.9 ? Diameter Transverse (cm): 0.8 Popliteal Artery, Below Knee, Right ? Diameter AP (cm): 0.7 ? Diameter Transverse (cm): 0.7 Common Femoral Artery, Proximal, Left ? Diameter AP (cm): 1.4 ? Diameter Transverse (cm): 1.5 Common Femoral Artery, Mid, Left ? PSV (cm/s): 55 ? EDV: 7 ? Diameter AP (cm): 1.4 ? Diameter Transverse (cm): 1.4 Common femoral artery, Distal, Left ? Diameter AP (cm): 1.2 ? Diameter Transverse (cm): 1.3 Popliteal Artery, Above Knee, Left ? Diameter AP (cm): 0.7 ? Diameter Transverse (cm): 0.7 Popliteal Artery, Mid, Left ? PSV (cm/s): 32 ? EDV: 7 ? Diameter AP (cm): 0.8 ? Diameter Transverse (cm): 0.8 Popliteal Artery, Below Knee, Left ? Diameter AP (cm): 0.7 ? Diameter Transverse (cm): 0.6 Interpretation: Patent bilateral common femoral and popliteal arteries with no aneurysmal dilatation identified. Comparison: ??No previous study in our vascular lab da tabase for comparison. Electronically Signed by: MANSOOR WHITE on 2021-10-02 08:04:22 AM VB Text End of Report VASCUBASE Report Specimen (Source) Anatomical Collection Method Collection Time Re ceived Time Location / / Volume Laterality 10/01/2021 8:05 AM EST Merrill Richmond DIRECTOR LIFE SALES VASCULAR ORDERABLES Performing Organization Address City/State/ZIP Code Phon e Number VASCUBASE documented in this encounter Visit Diagnoses Diagnosis Abdominal aortic aneurysm (AAA) without rupture Bilateral iliac artery aneurysm Aneurysm of iliac artery documented in this encounter Care Teams Gear Lapping Machine Operator Relationship Specialty Start Date End Date Hermila Hamilton APRN PCP - General Family Medicine 08/30/[address] [place] [id number] documented as of this encounter
--- OUTSIDE RECORDS SUMMARY | 2022-08-20 14:07 | XMS_ITS | Encounter Summary ---
:1955 Author Organization [facility] [place] [address] Care Team Providers Name Role Phone Hermila Hamilton ARYA Primary Care Provider [phone] Encounter Details Date Type Department Care Team Description 02/25/2020 Orders Only Vascular Surgery at Merrill Richmond, Ab dominal aortic [facility] aneurysm (AAA) without [place] [address] VASCULAR SURGERY [phone] [place], [place] [address] Social History Tobacco Use Types Packs/Day Years [...] 11/04/2022 Office Visit Dermatology Johnny Castellanos MD [facility] DR KARLI ANDERSON[place]MAT [place], [place] [address] (Wo rk) documented as of this encounter Results AAA Duplex, Complete/Bilateral (08/29/2020 8:42 AM EDT) Component Value Ref Test Analysis Performed At [facility] Method Time Signature VB Text Department: Vascular Surgery Lab VASCUBASE Report Patient: [id number] (JUAN CARLOS DEAN) CPT: 29259 ICD10: I72.3;I71.4 Referring Physician: MERRILL RICHMOND, ARYA ?? Phone: Indications: AAA and bilateral MAXIM aneurysm OSH/CTA, ? size ICD10 Diagnosis Code: I72.3, I71.4 Findings: Infra Renal Aorta ? PSV (cm/s): 53 ? EDV (cm/s): 14 ? Diam AP (cm): 3.3 ? Diam Lateral (cm): 3.0 Distal Aorta ? PSV (cm/s): 38 ? EDV (cm/s): 0 ? Diam AP (cm): 3.9 ? Diam Lateral (cm): 4.4 Common Iliac Artery, Proximal, Right ? PSV (cm/s): 82 ? EDV (cm/s): 12 ? Diam AP (cm): 3.0 ? Diam Lateral (cm): 3.0 Common Iliac Artery, Proximal, Left ? PSV (cm/s): 112 ? EDV (cm/s): 20 ? Diam AP (cm): 3.0 ? Diam Lateral (cm): 3.2 Interpretation: Patent abdominal aortic aneurysm with a maximum diameter of 3.9 x 4.4 cm. The proximal aorta was not visualized due to overlying bowel gas . Patent RIGHT proximal common iliac artery aneury sm with a maximum diameter of 3.0 x 3.0 cm. Patent LEFT proximal common iliac artery aneurysm with a maximum diameter of 3.0 x 3.2 cm. The aneurysm a ppears to extend into the mid segment of the common iliac artery, however unable to obtain an accurate measurement due to overlying bowel gas. Comparison: ??No previous study in our vascular lab da tabase for comparison. Electronically Signed by: MANSOOR WHITE on 2020-08-29 12:59:14 PM VB Text End of Report VASCUBASE Report Specimen (Source) Anatomical Collection Method Collection Time Re ceived Time Location / / Volume Laterality 08/29/2020 8:42 AM EDT Merrill Christiansen Yi PAY CLERK VASCULAR ORDERABLES Performing Organization Address City/State/ZIP Code Phon e Number VASCUBASE documented in this encounter Visit Diagnoses Diagnosis Abdominal aortic aneurysm (AAA) without rupture documented in this encounter Care Teams Cupola Melter Helper Relationship Specialty Start Date End Date Hermila Hamilton APRN PCP - General Family Medicine 08/30/[address] [place] [phone] documented as of this encounter
--- OUTSIDE RECORDS SUMMARY | 2022-08-20 14:07 | XMS_ITS | Encounter Summary ---
:1955 [place] [address] Care Team Providers Name Role Phone JoyHermila ARYA Primary Care Provider [phone] Reason for Referral Consultation (Routine) - Specialty Diagnoses / Procedures Referred By Contact Refer red To Contact Dermatology Diagnoses BCC (basal cell carcinoma of skin) Nancy Francisco MD [facility] [address] [facility] [place] [address] [place] [address] Referral ID Status Reason Start Date Expiration Date Visits V isits Requested Authorized [id number] Consult, Test 10/22/2016 10/22/2017 6 6 & Treat PCP Updated and/or Approved Encounter Details Date Type Department Care Team Description 09/20/2016 Telephone Dermatology at [facility] Nancy Francisco MD [address] [facility] [place] [address] [facility]-DERMATOLOGY [phone] [place], [place] [address] (Wo rk) Social History Tobacco Use Types Packs/Day Years Used Date Current Every Day Smoker 0.75 Sex Assigned at Date Recorded Not on file documented as of this encounter Miscellaneous Notes Telephone Encounter - Nancy Francisco MD - 09/20/2016 1:36 PM EDT Spoke with the patient and discussed with him that the bx revealed a BCC, nodular type. We had discussed at length before that this will require Mohs surgery because of it's location on the R tragus. He wishes to be referred to [facility] Mohs. We will refer him to [facility] for Mohs surgery. He was instructed to call us should he not hear about an appointment in one week. We will see him inF/U in 6 months. Nancy Francisco MD Resident in Dermatology, PGY2 Section of Dermatology, Department of Surgery [facility] Pager [phone] documented in this encounter Plan of Treatment Upcoming Encounters Date Type Specialty Care Team Description 11/04/2022 Office Visit Dermatology Johnny Castellanos MD [facility] ER DR KARLI ANDERSON-DERMAT [place], [place] [address] (Wo rk) Scheduled Referrals Name Type Priority Associated Order Schedule Diagnoses Referral to Outpatient Referral Routine BCC (basal cell Order ed: Dermatology carcinoma of skin) 6 documented as of this encounter Visit Diagnoses Diagnosis BCC (basal cell carcinoma of skin) Basal cell carcinoma of skin, site unspe cified documented in this encounter Care Teams Sorter Packer Relationship Specialty Start Date End Date Hermila Hamilton APRN PCP - General Family Medicine 08/30/[address] [place] [phone] documented as of this encounter
--- OUTSIDE RECORDS SUMMARY | 2022-08-20 14:07 | XMS_ITS | Encounter Summary ---
:1955 Author Organization [facility] Address [address] [place] [address] Care Team Providers Name Role Phone Hermila Hamilton APRN Primary Care Provider [phone] Encounter Details Date Type Department Care Team Description 11/08/2021 Office Visit Dermatology at [facility] Johnny Castellanos, Rashaun; Toro KONG Seborrheic keratosis; [address] [facility] Seborrheic keratosis, inflam ed; [place] [address] [address] [address] Avina angionaga; [phone] [facility] Multiple benign nevi of upper extremity, lower extremity, and trunk; RD-DERMATOLOGY Neoplasm of uncertain behavior of skin o f ear [place], [place] [address] Social History Tobacco Use Types Packs/Day Years Used Date Heavy Tobacco Smoker Cigarettes 0.5 Smokeless Tobacco: Never Used Comments: quit 10/30/2015 Alcohol Use Standard Drinks/Week Comments No 0 (1 standard drink = 0.6 oz pure alcoho l) Sex Assigned at Date Recorded Not on file documented as of this encounter Progress Notes Johnny Castellanos MD - 11/08/2021 11:45 AM EST Images from the original note were not included. DEPARTMENT OF DERMATOLOGY [facility] Provider: Johnny Castellanos MD FAAD at [facility]at[facility] at [address] Patient's preferred name Juan PAST MEDICAL HISTORY Melanoma Dysplastic nevi SCC BCC Right??tragus, BCC, s/p Mohs Nov 2016?? [place] [] cryotherapy [] efudex [] PDT [] Other Relevant Medications [] Immunosuppression [] Oncogenic medication [] Nicotinamide Other relevant history Wart FAMILY HISTORY Melanoma NMSC Other relevant history SOCIAL HISTORY History of Present Illness: Juan Dean is 66 y.o. and here for the following: ?? No areas of concern. No areas that bleed or are painful ?? Patient requests full skin cancer screening; ?? No known recurrence of skin cancer; Medications: Reviewed in eD-H Allergies: Reviewed in eD-H Skin Examination Standby: Lola Morelos LPN Well developed, well-nourished in no apparent distress, alert and oriented to time, person, place and situation. Patient was asked to disrobe to the level of comfort. Patient declined evaluation of the following: [x] Area under the underwear [x] socks Examination of the skin of the head - including the scalp, face, ears, eyelids, nose, lips, tongue, oral/conjunctival mucosa - neck, chest, abdomen, back, axillae, upper and lower extremities (except the feet), including the fingernail plates, significant for the following. Exam Findings/Assessment/Plan Lentigines Multiple, uniformly brown, slightly irregular, polygonal macules c/w lentigos on sun-exposed areas of skin Benign. Counseled: lentigines, sun damage and spontaneous development, rare risk of lentigo maligna (melanoma arising in a lentigo), sun protection, no treatment necessary but discussed cosmetic options, including topical bleaching agents, as well as chemical peels and lasers. Answered all questions. Handout given. Seborrheic Keratoses Scattered, stuck-on, well-demarcated, brown or brown, waxy or warty papules c/w SKs on the trunk and extremities. Benign. No treatment necessary. Counseled: SKs, benign, treatment options for symptomatic lesions. Answered all questions. Handout given. Inflamed Seborrheic Keratosis Stuck-on, well-demarcated, pink warty papules or plaques on pink bases or eroded on the upper extremities. Benign. Symptomatic or inflamed. Counseled: ISKs and SKs, benign, treatment options for symptomatic lesions including cryotherapy or hydrogen peroxide and their major risks including but not limited to pain, scarring, and recurrence. Answered all questions. Patient elects no treatment. Avina Angiomas Avina red papules on the head Counseled: avina angiomas. Benign. No treatment necessary unless symptoms develop. Treatment considered cosmetic and [id number]. Treatment options, including but not limited to electrocautery, discussed. Handout given. Nevi Well-demarcated, round or oval, brown or brown macules and papules with benign morphology on the head,neck, trunk, and extremities. Morphology reassuring for benign nevi. Counseled: Nevi and risks for melanoma arising in a nevus. Recommend regular self-examinations. Answered all questions. Reviewed ABCDEs of melanoma, as below. ??? Return to clinic as needed for changes in color, size, shape or thickness or should bleeding or other symptoms occur. Patient agrees to plan. Neoplasm of Uncertain Behavior / Dermatitis, 10 x 9 mm pearly pappule with 2 mm erosion on the right posterior ear. DDx: BCC vs SCC vs Other Discussed differential diagnoses as above, and management options including the risks and benefits of diagnostic biopsy and its risk for scar, pain, infection as well as biopsy wound care instructions.Discussed that pathology results will be available in approximately 1 week; and patient to contact clinic if result is not available in 2 weeks. Answered all questions. Patient elects biopsy. Procedure / Biopsy Discussed with patient biopsy - including but not limited to recurrence, cosmesis (scar, dyspigmentation, scar spread,keloid), pain, keloid/hypertrophic scar, bleeding, infection for biopsy. Answered all questions. Patient verbally understands, verbally consents to and elects biopsy. Images Photo(s) taken by Shania Castellanos MD. with patient's verbal permission for use for clinical and educationpurposes. Figure B Insert photo here Procedure Time Out Performed: Name, , and site(s) confirmed with patient [x] Yes Blood Thinner? [] Denies [x] Yes Pacemaker or defribrillator? [x] Denies [] Yes Joint Replacement in the last 24 months? [] Denies [x] Yes Allergy to lidocaine or epinephrine? [x] Denies [] Yes Permission to convey results: [x] Call cell phone before 3 and permission to leave voicemail Procedure (s) A. [x] Shave [] Punch Location (s) A. Right posterior ear Pre-Operative Diagnosis A. BCC vs SCC vs Other Anesthesia: 1% lidocaine [] NO epi [x] 1:100,000 epi Sterile Prep Alcohol Lesion biopsied with shave technique using zen blade. Hemostasis achieved with [x] Drysol [] Monsels [] Elecrocautery. <1ml blood loss. No complications. Specimen(s): Placed in formalin and sent to Pathology for histologic examination. Post-op care: Vaseline, [x] Bandaid [] Pressure Dressing Post-operative pain: 0/10 ?? Wound care instructions provided including cleaning Vaseline or topical antibiotic once or twice a day, allowing soapy water to wash over wound daily, and an optional Band-Aid or bandage. Recommend sun protection after the wound is healed to mitigate long-term redness. History of Skin Cancer No clinical evidence of recurrence in scar on the right tragus. ??? Recommend regular evaluation of scars ??? Return to clinic if suspect recurrence. Patient agrees to plan. Patient Counseled [Skin Cancer] [x] History of skin cancer [] History of immunosuppression [] History of extensive sun exposure [] Family history of skin cancer Counseled: recommend sun protection, regular self skin exams, provider skin exams every 12 months (more frequently if pathology shows malignancy), and the ABCDEs of melanoma/NMSC. Answered all questions. Handouts on how to do a self- exam, skin cancers and sun protection/recommended OTC sunscreens given to the patient. Joint decision for skin cancer screening in 12 months. ?? Regular full body self examinations and return to clinic for new suspicious lesions or if changes/symptoms in existing lesions develop. Follow-up: 1 year for FSE; or sooner pending results. Return sooner as needed for suspicious lesion,new or worsening dermatitis. [] Recall placed [x] Forwarded to operating room scheduler [] Patient scheduled before exiting Scribe attestation: Lola Morelos LPN has performed the documentation for this encounter in the presence of and acting as a scribe for MD ALISHA Wakefield. I performed the above scribed service and agree with the accuracy of the documentation in this encounter. Reviewed and signed by: Johnny Castellanos MD FAAD Dermatology [facility] Johnny Castellanos MD - 11/08/2021 11:45 AM EST [id number] Right posterior ear, skin shave biopsy: - ??Basal cell carcinoma, nodular pattern, present at the peripheral and deep specimen edges NODULAR BCC, RIGHT POSTERIOR EAR Recommend Mohs Recommend SCS in Jul 2022 Call cell phone before 3 and permission to leave voicemail Melina Ortiz LPN - 11/08/2021 11:45 AM EST Called and updated Juan about results. He wishes to proceed with Mohs and referral has been placed. documented in this encounter Plan of Treatment Upcoming Encounters Date Type Specialty Care Team Description 11/04/2022 Office Visit Dermatology Johnny Castellanos MD [facility] ER DR KARLI ANDERSON-DERMAT [place] [address] (Wo rk) documented as of this encounter Procedures Procedure Name Priority Date/Time Associated Diagnosis Comme nts SPECIMEN TO Routine 11/08/2021 1:00 PM Neoplasm of Results f or this PATHOLOGY EST uncertain behavior procedure are in of skin of ear the results section. SURGICAL PATHOLOGY Routine 11/08/2021 12:58 PM Re sults for this REPORT EST procedure are i n the results section. documented in this encounter Results Specimen to Pathology (11/08/2021 1:00 PM EST) Specimen Anatomical Collection Method Collection Time Receive d Time (Source) Location / / Volume Laterality AP Specimen 11/08/2021 1:00 PM 1:00 EST PM EST Narrative [facility] - 11/08/2021 1:00 PM EST Specimen requisition ordered. ??Separate Pathology report to follow Johnny Castellanos MD PATHOLOGY/CYTOLOGY ORDERABLE S Performing Organization Address City/[facility]/ZIP Code Phon e Number [address] Surgical Pathology Report (11/08/2021 12:58 PM EST) Component Value Ref Test Analysis Performed At [facility] gist Range Method Time Signature Surgical [id number] ? Location: [facility] Report The signing pathologist has (i) examined the relevant preparation(s) for the [facility] specimen(s) and (ii) rendered or confirmed the diagnosis(es) . HOSPITAL LABORATORY . ?Surgic al Pathology DIAGNOSIS Right posterior ear, skin shave biopsy: - ??Basal cell carcinoma, no dular pattern, present at the peripheral and deep specimen edges Electronically signed by: ?Juan M KONG, PhD, [facility] Hospital[facility]eli Verified: ??11/18/2021 9:36 ?? Dermatopathologist Performed at: ??-[facility], [place], [place] SPECIMEN(S) SUBMITTED A - right posterior ear, skin shave biopsy (1) CLINICAL INFORMATION 10 x 9 pearly papule with 2 mm erosion. DDX: BCC vs SCC vs o ther SPECIMEN PROCESSING A - Labeled/Fixative: Patient demographics, formalin. Quantity/Size: ??Single, 0.7 x 0.6 x 0.3 cm. Tissue Description: Nonorien catai, irregular shape of a pink, domed lesion with a central 0.1 cm diameter defect. Sections/Processing: Inked, trisected and entirely submitted in 1 cassette labele d A1. ??shb Specimen (Source) Anatomical Collection Method Collection Time Re ceived Time Location / / Volume Laterality 11/08/2021 12:58 PM EST Johnny Castellanos MD PATHOLOGY/CYTOLOGY ORDERABLE S Performing Organization Address City/[facility]/ZIP Code Phon e Number [address] documented in this encounter Visit Diagnoses Diagnosis Lentigines Other dyschromia Seborrheic keratosis Other seborrheic keratosis Seborrheic keratosis, inflamed Inflamed seborrheic keratosis Avina angioma Nevus, non-neoplastic Multiple benign nevi of upper extremity, lower extremity, and trunk Neoplasm of uncertain behavior of skin o f ear Neoplasm of uncertain behavior of skin documented in this encounter Care Teams Pneumatic Jack Operator Relationship Specialty Start Date End Date Hermila Hamilton APRN PCP - General Family Medicine 08/30/16 [address] [place] [address] documented as of this encounter
--- OUTSIDE RECORDS SUMMARY | 2022-08-20 14:07 | XMS_ITS | Encounter Summary ---
:1955 Author Organization [facility] [place] [address] Care Team Providers Name Role Phone JoyHermila ARYA Primary Care Provider [phone] Reason for Visit Reason Onset Date Comments Pre Procedure Call 11/20/2016 Encounter Details Date Type Department Care Team Description 11/20/2016 Telephone Dermatology Moh[facility] [address] [place] [address] Social History Tobacco Use Types Packs/Day Years Used Date Current Every Day Smoker 0.75 Sex Assigned at Date Recorded Not on file documented as of this encounter Miscellaneous Notes Telephone Encounter - [facility] LPN - 11/20/2016 1:15 PM EST Mohs Nurse Preop Phone Call Preop Questions Patient has received and reviewed mailed information. Advised to bring health form to visit. Patient (or spouse/manager of financial planning) can identify biopsy site Patient has no travel, social, or exercise plans that would necessitate change of surgery date. Patient has not had Mohs in the past. Pre op instructions reviewed, questions answered. Medications verified with attention to ASA, NSAIDs, Coumadin, antiplatelet agents, and supplements. Allergies Review of patient's allergies indicates no known allergies. PMH Overall health: good Cardiovascular disease: no (stent, RI, stroke, TIA, etc) Pacemaker: no Implanted defibrillator/ICD: no Bleeding disorder: no Heart murmur: no Artificial heart valve:no Artificial joints: no Takes abx before dental appt: no SH Smoker: [ ]Yes [x ]No Comments: (just quit 1 month ago; using patch) Alcohol: [ ]Yes [x ]No Comments: Tumor pathology. 09/16/2016 Skin, right tragus, shave biopsy: - BASAL CELL CARCINOMA, NODULAR TYPE, transected documented in this encounter Plan of Treatment Upcoming Encounters Date Type Specialty Care Team Description 11/04/2022 Office Visit Dermatology Johnny Castellanos MD [facility] ER DR KARLI ANDERSON-DERMAT [place], [place] [address] (Wo rk) documented as of this encounter Visit Diagnoses Not on filedocumented in this encounter Care Teams Flame Hardening Machine Setter Relationship Specialty Start Date End Date Hermila Hamilton APRN PCP - General Family Medicine 08/30/[address] [place] [id number] documented as of this encounter
--- OUTSIDE RECORDS SUMMARY | 2022-08-20 14:07 | XMS_ITS | Encounter Summary ---
:1955 Author Organization [facility] [place] [address] Care Team Providers Name Role Phone Hermila Hamilton APRN Primary Care Provider [phone] Encounter Details Date Type Department Care Team Description 02/14/2020 Ancillary Procedure Radiology Library at [facility], [facility] [address] [place] [phone] (Allen finch) Social History Tobacco Use Types Packs/Day Years [...] 11/04/2022 Office Visit Dermatology Johnny Castellanos MD [facility] ER DR KARLI ANDERSON-DERMAT [place], [place] [address] (Wo rk) documented as of this encounter Procedures Procedure Name Priority Date/Time Associated Diagnosis Comme nts FILM LIBRARY Routine 02/14/2020 12:00 AM Results for this STORAGE ONLY CT EDT procedure ar e in ABDOMEN AND PELVIS the resul ts section. documented in this encounter Results Film Library- Storage Only CT Abdomen & Pelvis (02/14/2020 12:00 AM EDT) Specimen (Source) Anatomical Location Collection Method / Collectio n Time Received Time / Laterality Volume Narrative DRE - 08/09/2020 11:51 AM EDT This exam is auto-finalizing. It's purpo se is for storage only. Hermila Hamilton APRN IMTricia FILM LIBRARY ORDERABLES Performing Organization Address City/State/ZIP Code Phon e Number [place], [place] documented in this encounter Visit Diagnoses Not on filedocumented in this encounter Care Teams Automobile Mechanic Supervisor Relationship Specialty Start Date End Date Hermila Hamilton APRN PCP - General Family Medicine 08/30/16 [address] [place] [address] documented as of this encounter
--- OUTSIDE RECORDS SUMMARY | 2022-08-20 14:07 | XMS_ITS | Encounter Summary ---
:1955 Demographics Home Phone Preferred Language Unknown Marital Status Unknown [employer] Affiliation Unknown Race Unknown Ethnic Group Unknown Author Organization [facility] Address [address] [place] [address] Care Team Providers Name Role Phone Unavailable Primary Care Provider Unavailable Encounter Details Date Type Department Care Team Description 05/05/2020 Lab Requisition [facility] Outr Resulting Lab, Pathology & Laboratory Provider [facility] [address] [place] [address] Social History Tobacco Use Types Packs/Day Years Used Date Never Assessed Sex Assigned at Date Recorded Not on file documented as of this encounter Plan of Treatment Not on filedocumented as of this encounter Procedures Procedure Name Priority Date/Time Associated Diagnosis Comme nts COVID-19 TEST [facility] Today 05/05/2020 10:56 LAB PCR EDT COVID-19 TESTING Routine 05/05/2020 10:56 Results for this EDT procedure are i n the results section. documented in this encounter Results COVID-19 TEST [facility] LAB PCR (05/05/2020 10:56 EDT) Specimen Swab - Entire nasopharynx (body structur e) Performing Organization Address City/State/ZIP Code Phon e Number [facility] [address] [place] [address] SERVICES COVID-19 TESTING (05/05/2020 10:56 EDT) COVID-19 rt-PCR Negative Negative [facility] MEDICAL Result Comment: [facility] This test has not been FDA c leared or approved. This test has been authorized by FDA under an EUA for use by authorized laboratories. This test has been authorized only for detection of nucleic acid fro SERVICES m 2019-nCoV, not for any oth er viruses or pathogens. This test is only authorized for the duration of the declaration that circumstances exist justifying the authorization of emergency use of in vitro d iagnostic tests for detectio n and/or diagnosis of 2019-nCoV under section 564(b)(1) of Act, 21 U.S.C ?? 360bbb-3(b) (1), unless the authorization is terminated or revoked sooner. Negative results do not prec lude 2019-nCoV infection and should not be used as the sole basis for treatment or other patient management decisions. Negative results must be combined with clinical observa tions, patient history, and epidemiological informatio n. Performed on the LLUSTREher Fusion instrument Performing Lab [place] [facility] Lab [facility] SERVICES Specimen Swab - Entire nasopharynx (body structur e) Performing Organization Address City/State/ZIP Code Phon e Number [facility] [address] [place] [address] SERVICES documented in this encounter Visit Diagnoses Not on filedocumented in this encounter
--- OUTSIDE RECORDS SUMMARY | 2022-08-20 14:07 | XMS_ITS | Encounter Summary ---
:1955 Author Organization [facility] [place] [address] Care Team Providers Name Role Phone Hermila Hamilton APRN Primary Care Provider [phone] Reason for Referral Diagnostic Test (Routine) - Closed Specialty Diagnoses / Procedures Referred By Contact Refer red To Contact Diagnoses Abdominal aortic aneurysm (AAA) without rupture Bilateral iliac artery aneurysm Merrill Richmond APRN [facility] Vascular Lab 3v Procedures Arterial Duplex, Bilat Legs [facility] [place] [address] [place] [address] Referral ID Status Reason Start Date Expiration Date Visits V isits Requested Authorized [id number] Closed Test Only 02/27/2021 02/27/2022 1 1 Diagnostic Test (Routine) - Closed Specialty Diagnoses / Procedures Referred By Contact Refer red To Contact Diagnoses Abdominal aortic aneurysm (AAA) without rupture Bilateral iliac artery aneurysm Merrill Richmond APRN [facility] Vascular Lab 3v Procedures AAA Duplex, Complete/Bilateral [facility] [place] [address] [place] [address] Referral ID Status Reason Start Date Expiration Date Visits V isits Requested Authorized [id number] Closed Test Only 09/21/2021 11/19/2021 1 1 Encounter Details Date Type Department Care Team Description 02/27/2021 Office Visit Vascular Surgery at Merrill Richmond, Ab dominal aortic aneurysm (AAA) without rupture; [facility] TRAILER SECTIONS ASSEMBLER Bilateral iliac artery aneurysm [facility] [address] [place] VASCULAR SURGERY [address] [place] [address] [phone] Social History Tobacco Use Types Packs/Day Years Used Date Former Smoker 0.75 Smokeless Tobacco: Never Used Comments: quit 10/30/2015 Alcohol Use Standard Drinks/Week Comments No 0 (1 standard drink = 0.6 oz pure alcoho l) Sex Assigned at Date Recorded Not on file documented as of this encounter Last Filed Vital Signs Vital Sign Reading Time Taken Comments Blood Pressure 110/66 02/27/2021 9:31 AM EDT Pulse 76 02/27/2021 9:31 AM EDT Temperature - - Respiratory Rate - - Oxygen Saturation - - Inhaled Oxygen Concentration - - Weight 83 kg (183 lb) 02/27/2021 9:31 AM EDT reported Height 182.9 cm (6') 02/27/2021 9:31 AM EDT reported Body Mass Index 24.82 02/27/2021 9:31 AM EDT documented in this encounter Progress Notes Merrill Richmond APRN - 02/27/2021 9:30 AM EDT F/u aortic duplex 65 yo male with known AAA per U/S 3 years ago and more recently with AAA and B iliac artery aneurysms on CT abd/pelvis for work up for urinary problems. Denies abd/back pain, SOB, chest pain, TN, DVT, HTN, CVA, TIa's, claudication. C/o left hip pain he is waiting for replacement. Denies family historyof AAA. He takes statin and ASA daily. He quit smoking end of August 2019. CT 02/14/20 with 4.0 cm AAA and 2.5 cm Left iliac and 2.6 cm right iliac artery aneurysms Today: C/o problems with prostates recently finished coarse of antibx. Denies abd/back pain, claudication, rest pain, tissue loss, SOB, chest pain, TIa's. PMHx: Past Medical History: Diagnosis Date ??? [...] to Visit Medication Sig Dispense Refill ??? finasteride (Proscar) 5 mg Tablet Take 5 mg by mouth daily. ??? atorvastatin (LIPITOR) 20 mg Tablet Take 20 mg by mouth daily. ??? tamsulosin (FLOMAX) 0.4 mg Capsule Take 0.4 mg by mouth daily. ??? aspirin 81 mg Tablet, Delayed Release (E.C.) Take 81 mg by mouth daily. No current facility-administered medications on file prior [...] Muscoloskeletal (extremity pain, weakness) -left hip pain planning left hip surgery at some time Skin (ulcers, rashes) - denies All other ROS negative PE General: NAD, appears well Neuro: Alert and oriented, motor sensory grossly intact Lungs: CTA Heart: RRR Abd: Soft, NT, ND, no palpable pulsatile masses Extremity - [place], warm, no ulceration, brisk capillary refill, no edema Vascular: R L Carotid 2/2 bruit (n) 2/2 bruit (n) Radial 2/2 2/2 Femoral 2/2 3/2 Popliteal -/2 -/2 DP 2/2 2/2 PT 2/2 2/2 Aortic duplex Infra Renal Aorta ?PSV (cm/s): 46 ?EDV (cm/s): 8 ?Diam AP (cm): 3.5 ?Diam Lateral (cm): 3.0 Distal Aorta ?PSV (cm/s): 26 ?EDV (cm/s): 1 ?Diam AP (cm): 3.8 ?Diam Lateral (cm): 4.3 Common Iliac Artery, Proximal, Right ?PSV (cm/s): 56 ?EDV (cm/s): 0 ?Diam AP (cm): 3.1 ?Diam Lateral (cm): 3.1 Common Iliac Artery, Proximal, Left ?PSV (cm/s): 83 ?EDV (cm/s): 0 Common Iliac Artery, Mid, Left ?Diam AP (cm): 3.1 ?Diam Lateral (cm): 3.2 ? Interpretation: ?? Patent abdominal aortic aneurysm with a maximum diameter of 3.8 cm x 4.3 cm (previously 3.9 x 4.4 cm). The proximal aorta was not visualized due to overlying bowel gas. ?? Patent RIGHT proximal common iliac artery aneurysm with a maximum diameter of 3.1 cm x 3.1 cm (previously 3.0 x 3.0 cm). ?? Patent LEFT proximal common iliac artery aneurysm with a maximum diameter of 3.1 cm x 3.2 cm )previously 3.0 x 3.2 cm). ?? Assessment//Plan: 65 yo male with known AAA per U/S two years ago and most recently with AAA and B iliac artery aneurysms on CT abd/pelvis for work up for urinary problems. Denies abd/back pain. Asymptomatic, stable. 4.3 cm AAA and right iliac 3.1 cm and left iliac 3.2 cm. Discussed natural history ofAAA Discussed warning signs. No vascular intervention warentted at this time. Recommend continuing ASA and stain. Congratulated on smoking cession. Plan RTC in 6 months with aortic duplex and poplitealduplex . documented in this encounter Plan of Treatment Upcoming Encounters Date Type Specialty Care Team Description 11/04/2022 Office Visit Dermatology Johnny Castellanos MD [facility] ER DR KARLI ANDERSON[place]MAT [place], [place] [address] (Wo rk) documented as of this encounter Results Arterial Duplex, Bilat Legs (10/01/2021 8:05 AM EST) Component Value Ref Test Analysis Performed At [facility] gist Range Method Time Signature VB Text Department: Vascular Surgery Lab VASCUBASE Report Patient: [id number] (JUAN CARLOS DEAN) CPT: 11821 ICD10: I71.4;I72.3 Referring Physician: MERRILL RICHMOND APRN ?? Phone: Indications: ?? Known AAA, p rominent femoral and popliteal pulses, ? 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 Phone: Indications: F/U AAA and bilateral [...] Laterality 10/01/2021 8:05 AM EST Merrill Richmond TRAILER SECTIONS ASSEMBLER VASCULAR ORDERABLES Performing Organization Address City/State/ZIP Code Phon e Number VASCUBASE documented in this encounter Visit Diagnoses Diagnosis Abdominal aortic aneurysm (AAA) without rupture Bilateral iliac artery aneurysm Aneurysm of iliac artery documented in this encounter Care Teams Aviation Tactical Readiness Officer Relationship Specialty Start Date End Date Hermila Hamilton TRAILER SECTIONS ASSEMBLER PCP - General Family Medicine 08/30/16 [address] [place] [address] documented as of this encounter
--- OUTSIDE RECORDS SUMMARY | 2022-08-20 14:07 | XMS_ITS | Encounter Summary ---
:1955 Author Organization [facility] [place] [address] Care Team Providers Name Role Phone Hermila Hamilton ARYA Primary Care Provider [phone] Encounter Details Date Type Department Care Team Description 02/27/2021 Tech Visit Vascular Lab at [facility], Abdom [facility]al [facility], [place] [address] Social History Tobacco Use Types Packs/Day [...] 11/04/2022 Office Visit Dermatology Johnny Castellanos MD [facility] ER DR KARLI ANDERSON-DERMAT [place], [place] [address] (Wo rk) documented as of this encounter Procedures Procedure Name Priority Date/Time Associated Diagnosis Comme nts AAA DUPLEX COMPLETE Routine 02/27/2021 8:33 AM Abdominal aorti c Results for this EDT aneurysm (AAA) procedure are in without rupture the results Iliac artery section. aneurysm, bilateral documented in this encounter Results AAA Duplex, Complete/Bilateral (02/27/2021 8:33 AM EDT) Component Value Ref Test Analysis Performed At [facility] Range Method Time Signature VB Text Department: Vascular Surgery Lab VASCUBASE Report Patient: [id number] (JUAN CARLOS DIAL) CPT: 62642 ICD10: I72.3;I71.4 Referring Physician: MARIBEL CASTILLO ?? Phone: Indications: AAA and bilateral common iliac artery aneurysms ICD10 Diagnosis Code: I72.3, I71.4 Findings: Infra Renal Aorta ? PSV (cm/s): 46 ? EDV (cm/s): 8 ? Diam AP (cm): 3.5 ? Diam Lateral (cm): 3.0 Distal Aorta ? PSV (cm/s): 26 ? EDV (cm/s): 1 ? Diam AP (cm): 3.8 ? Diam Lateral (cm): 4.3 Common Iliac Artery, Proximal, Right ? PSV (cm/s): 56 ? EDV (cm/s): 0 ? Diam AP (cm): 3.1 ? Diam Lateral (cm): 3.1 Common Iliac Artery, Proximal, Left ? PSV (cm/s): 83 ? EDV (cm/s): 0 Common Iliac Artery, Mid, Left ? Diam AP (cm): 3.1 ? Diam Lateral (cm): 3.2 Interpretation: Patent abdominal aortic aneurysm with a maximum diameter o f 3.8 cm x 4.3 cm (previously 3.9 x 4.4 cm). The proximal aorta was not visual ized due to overlying bowel gas. Patent RIGHT proximal common iliac artery aneury sm with a maximum diameter of 3.1 cm x 3.1 cm (previously 3.0 x 3.0 cm). Patent LEFT proximal common iliac artery aneurysm with a maximum diameter of 3.1 cm x 3.2 cm (previously 3.0 x 3.2 cm). Previous AAAs with change from previous value: Date ? DIAM AP ?DIAM LAT ? 3.90 ? 4.40 Current Exam ?? 3.80 (-0.10) ?? 4.30 (-0.10) Electronically Signed by: MANSOOR WHITE on 2021-02-28 02:57:43 PM VB Text End of Report VASCUBASE Report Specimen (Source) Anatomical Collection Method Collection Time Re ceived Time Location / / Volume Laterality 02/27/2021 8:33 AM EDT Maribel Castillo APRN VASCULAR ORDERABLES Performing Organization Address City/State/ZIP Code Phon e Number VASCUBASE documented in this encounter Visit Diagnoses Diagnosis Abdominal aortic aneurysm (AAA) without rupture Iliac artery aneurysm, bilateral Aneurysm of iliac artery documented in this encounter Care Teams Service Observer Relationship Specialty Start Date End Date Hermila Hamilton APRN PCP - General Family Medicine 08/30/[address] [place] [id number] documented as of this encounter
--- OUTSIDE RECORDS SUMMARY | 2022-08-20 14:07 | XMS_ITS | Encounter Summary ---
:1955 Author Organization [facility] [place] [address] Care Team Providers Name Role Phone Hermila Hamilton ARYA Primary Care Provider [phone] Encounter Details Date Type Department Care Team Description 10/04/2020 Office Visit Dermatology at [facility] Johnny Castellanos, Viral warts, unspecified type; [place] KONG Lentigines; [address] [facility] SK (seborrheic keratosis); [place] [address] [address] Dermatofibroma; [phone] [facility] Open comedone; RD-DERMATOLOGY Seborrheic keratosis, inflamed; [place], [place] [address] Multiple benign nevi; [phone] History of basa l cell carcinoma (BCC) (Work) Social History Tobacco Use Types Packs/Day Years Used Date Former Smoker 0.75 Smokeless Tobacco: Never Used Comments: quit 10/30/2015 Alcohol Use Standard Drinks/Week Comments No 0 (1 standard drink = 0.6 oz pure alcoho l) Sex Assigned at Date Recorded Not on file documented as of this encounter Progress Notes Johnny Castellanos MD - 10/04/2020 2:00 PM EST Images from the original note were not included. Dermatology Dermatology at [facility] FOLLOW-UP This is a mdoerate risk patient who returns for re-evaluation of recurrence of skin cancer and development of new skin cancers. Chief Complaint: skin exam History of Present Illness Juan Dean is a 65 y.o. male with history of skin cancer who is concerned about the following: ?? No known recurrence previous cancer sites. ?? No other suspicious lesions. Requests full body skin cancer screening. Interval changes to Medications and Medical, Family and Social Histories (including alcohol and tobacco use) Since Last Visit 10/04/2019: No significant interval history. Skin Cancer History Right tragus, BCC, s/p Mohs Nov 2016 No family history of skin cancer. Allergies Blueberry Medications has a current medication list which includes the following prescription(s): finasteride, atorvastatin, tamsulosin, and aspirin ec. Social History Tobacco: Former Alcohol: No Review of Systems Significant for no pertinent and acute changes in constitutional, other skin systems upon specific queries. Examination Standby: BOGDAN Canseco is appropriate. Well developed, well-nourished in no apparent distress, alert and oriented to time, person, place and situation. Patient was asked to disrobe to the level of comfort. Examination of the head - including the scalp,face, ears, nose, lips, tongue, oral mucosa - neck, chest, abdomen, back, axillae, buttocks, pubic area, upper and lower extremities, including the nail plates, significant for the following: ?? 12x6 mm verrucous plaque over the MCP joint over the right middle finger. ?? Firm, 5 mm violacious papule with dimple sign c/w DF on the left medial leg. ?? 2-3 mmm open comedones on the back. ?? Multiple, uniformly brown, slightly irregular, polygonal macules c/w lentigos on sun-exposed areas of skin ?? Scattered, stuck-on, well-demarcated, brown or brown, waxy or warty papules c/w SKs on the trunk and extremities. ?? Stuck-on, well-demarcated, pink warty papules or plaques on pink bases or eroded on the upper extremities. ?? Well-demarcated, round or oval, brown or brown macules and papules with benign morphology on the head, neck, trunk and extremities. ?? No evidence of recurrence in the scar on the right tragus. Assessment and Plan Wart, Right Hand Counseled: warts, types, etiology, prognosis long and serial treatments, and treatment options (including their risks and benefits), including awaiting immunity development, salicylic acid, cryotherapy, triple acid, cantharadin, electrodessication, and laser treatment. Answered all questions. Dermatofibroma Counseled: Dermatofibromas, benign/non-cancerous growth of dermal dendritic histiocyte cells, commonly arise at site of a minor injury and etiology is unknown, prognosis, treatment options if recurs and/or is symptomatic. Return to clinic if recurs and patient would like removed. Answered all questions. Handout given. Open Comedones, Back Benign. Lentigines Benign. Counseled: lentigines, sun damage and spontaneous development, rare risk of lentigo maligna (melanoma arising in a lentigo), sun protection, no treatment necessary but discussed cosmetic options, including topical bleaching agents, as well as chemical peels and lasers. Answered all questions. Handout given. Seborrheic Keratoses Benign. No treatment necessary. Counseled: SKs, benign, treatment options for symptomatic lesions. Answered all questions. Handout given Inflamed Seborrheic Keratosis Benign. Symptomatic or inflamed. Counseled: ISKs and SKs, benign, treatment options for symptomatic lesions. Answered all questions. Handout given. Nevi Morphology reassuring for benign nevi. Counseled: Nevi and risks for melanoma arising in a nevus. Recommend regular self-examinations. Answered all questions. Reviewed ABCDEs of melanoma, as below. ??? Return to clinic as needed for changes in color, size, shape or thickness or should bleeding or other symptoms occur. Patient agrees to plan. History of Skin Cancer No evidence of recurrence. Patient Counseled [Skin Cancer] Counseled: sun protection, regular self skin exams, provider skin exams every 12 months, and the ABCDEs of melanoma/NMSC. Answered all questions. Handouts on how to do a self-exam, skin cancers and sunprotection given to the patient. Follow-up: Skin cancer screening in Sep 2021 or return to clinic prn for new suspicious lesions or if changes/symptoms in existing lesions develop. Note initiated by BOGDAN Canseco CCMA has performed the documentation for this encounter in the presence of and acting as a scribe for Dr. Castellanos. I performed the above scribed service and agree with the accuracy of the documentation in this encounter. Johnny Castellanos MD FAAD Department of Dermatology [facility] documented in this encounter Plan of Treatment Upcoming Encounters Date Type Specialty Care Team Description 11/04/2022 Office Visit Dermatology Johnny Castellanos MD [facility] ER DR KARLI ANDERSON-DERMAT [place], [place] [address] (Wo rk) documented as of this encounter Visit Diagnoses Diagnosis Viral warts, unspecified type Lentigines Other dyschromia SK (seborrheic keratosis) Other seborrheic keratosis Dermatofibroma Benign neoplasm of skin, site unspecifie d Open comedone Other acne Seborrheic keratosis, inflamed Inflamed seborrheic keratosis Multiple benign nevi Benign neoplasm of skin, site unspecifie d History of basal cell carcinoma (BCC) documented in this encounter Care Teams Car Dumper Operator Relationship Specialty Start Date End Date Hermila Hamilton APRN PCP - General Family Medicine 08/30/[address] [place] [phone] documented as of this encounter
--- OUTSIDE RECORDS SUMMARY | 2022-08-20 14:07 | XMS_ITS | Encounter Summary ---
:1955 Author Organization [facility] [place] [address] Care Team Providers Name Role Phone Hermila Hamilton ARYA Primary Care Provider [phone] Encounter Details Date Type Department Care Team Description 08/29/2020 Tech [facility] [place] [address] Social History Tobacco Use Types Packs/Day Years Used Date Former Smoker 0.75 Smokeless Tobacco: Never Used Comments: quit 10/30/2015 Alcohol Use Standard Drinks/Week Comments No 0 (1 standard drink = 0.6 oz pure alcoho l) Sex Assigned at Date Recorded Not on file documented as of this encounter Miscellaneous Notes Addendum Note - Edd Chavez RVT - 08/29/2020 8:30 AM EDT Addended by: EDD CHAVEZ on: 08/29/2020 08:41 AM Modules accepted: Orders documented in this encounter Plan of Treatment Upcoming Encounters Date Type Specialty Care Team Description 11/04/2022 Office Visit Dermatology Johnny Castellanos MD [facility] [address] KARLI [address]ERSON[place], [place] [address] (Wo rk) documented as of this encounter Procedures Procedure Name Priority Date/Time Associated Diagnosis Comme nts AAA DUPLEX COMPLETE Routine 08/29/2020 8:42 AM Abdominal aorti c Results for this EDT aneurysm (AAA) procedure are in without rupture the results section. documented in this encounter Results AAA Duplex, Complete/Bilateral (08/29/2020 8:42 AM EDT) Component Value Ref Test Analysis Performed At [facility] Range Method Time Signature VB Text Department: Vascular Surgery Lab VASCUBASE Report Patient: [id number] (JUAN CARLOS DIAL) CPT: 83737 ICD10: I72.3;I71.4 Referring Physician: MATILDA RICHMOND, WIRE TESTER ?? Phone: Indications: AAA and bilateral MAXIM [...] / Volume Laterality 08/29/2020 8:42 AM EDT Matilda Richmond APRN VASCULAR ORDERABLES Performing Organization Address City/State/ZIP Code Phon e Number [email or web address] documented in this encounter Visit Diagnoses Diagnosis Abdominal aortic aneurysm (AAA) without rupture documented in this encounter Care Teams Manager Billing Relationship Specialty Start Date End Date Hermila Hamilton APRN PCP - General Family Medicine 08/30/[address] [place] [phone] documented as of this encounter
--- OUTSIDE RECORDS SUMMARY | 2022-08-20 14:07 | XMS_ITS | Encounter Summary ---
:1955 Author Organization [place] [id number] Care Team Providers Name Role Phone Hermila Hamilton APRN Primary Care Provider [phone] Reason for Visit Consultation (Routine) - Specialty Diagnoses / Procedures Referred By Contact Refer red To Contact Dermatology Diagnoses Disorder of the skin and subcutaneous tissue, unspecified PLEASE EVALUATE AND TREAT FOR SKIN LESION ON RIGHT EAR AND MID BACK. H/O BCC RIGHT EAR. PATIENT WANTS TO BE SEEN IN [place]. Hermila Hamilton Glass, Jonatha n S, MD [facility] [address] RADHA LUONG [address] [facility] [place] [address] [address] [place] [address] Fax: Referral ID Status Reason Start Date Expiration Date Visits V isits Requested Authorized [id number] Consult, Test 08/26/2019 08/26/2020 [facility] PCP Updated and/or Approved Encounter Details Date Type Department Care Team Description 10/04/2019 Office Visit Dermatology at Johnny Solorzano, Benign neoplasm (Primary Dx); Toro KONG Cyst of skin; [address] [facility] SK (seborrheic keratosis); [place] [address] [address] [address] History of basal cell carcinoma (BCC) [phone]-DERMATOLOGY [place], [place] [address] Social History Tobacco Use Types Packs/Day Years Used Date Former Smoker 0.75 Smokeless Tobacco: Never Used Comments: quit 10/30/2015 Alcohol Use Standard Drinks/Week Comments No 0 (1 standard drink = 0.6 oz pure alcoho l) Sex Assigned at Date Recorded Not on file documented as of this encounter Progress Notes Johnny Castellanos MD - 10/04/2019 2:00 PM EST Images from the original note were not included. DERMATOLOGY Dermatology at [facility] CONSULT Reason for Consultation: Disorder of the skin and subcutaneous tissue, unspecified Date of Consultation: 09/01/19 Consult Requested by: Hermila Hamilton Aprn [address] [place] [phone] Accompanied by Chief Complaint: Lesions History of Present Illness Juan Dean is a 64 y.o. male. History of skin cancer, who presents with the following concerns: ?? Itchy, crusty lesion on the back that has been present for several months. Looked like a wart, he and his agree. Mildly itchy sometimes. Never been treated or biopsied. ?? Lesion on the front of the right ear that has been present for 3-4 months and a similar lesion behind the right ear that developed months ago. No symptoms, drainage or bleeding. Never been treated or biopsied. ?? No recurrence in the scar on the right ear. Review of Systems Significant for no pertinent and acute changes in constitutional, other skin systems upon specific queries. Skin Cancer History Right tragus, BCC, s/p Mohs Nov 2016 No family history of skin cancer. Allergies Medications Patient has no known allergies. has a current medication list which includes the following prescription(s): nicotine and ibuprofen. Past History Medical Surgical Noncontributory Noncontributory Family Medical History Noncontributory Social History Tobacco: Former Alcohol: No Marital Status: Examination Standby: Richy Callemargarita Mood is appropriate. Well developed, well-nourished in no apparent distress, alert and oriented to time, person, place and situation. Skin Type: II. Focused skin examination of the right ear and midline upper back significant for the following: ?? 15 x 16 mm, waxy, bmzvx-dmqld-uyxasikh patch with uniform, brown, punctate globules on the midline upper back ?? [place], 3-4 cm, nodule without erosion on the right antihelix. 8 mm, rubbery, white nodule without epidermal changes on the right posterior ear. ?? Scattered, stuck-on, well-demarcated, brown or brown, crumbly or warty papules c/w SKs on the upperback, right of midline ?? No evidence of recurrence in scar on the right tragus Assessment and Plan Benign Neoplasm, Midline upper back DDx: ISK vs Benign Lichenoid Keratosis Joint decision to clinically monitor. ?? Return to clinic prn for changes in color, size, shape or thickness or should bleeding or other symptoms occur. Patient agrees to plan. Cysts, Right antihelix and right posterior ear Benign. No treatment necessary. Discussed treatment options including incision/enucleation. Patient elects to observe. ?? Return to clinic if enlarges, or should drainage or other symptoms occur. Patient agrees to plan. Seborrheic Keratoses Benign. No treatment necessary. Counseled: SKs, benign, treatment options for symptomatic lesions. Answered all questions. Handout given History of Skin Cancer No evidence of recurrence. Patient Counseled [Skin Cancer] Counseled: sun protection, regular self skin exams, provider skin exams every 12 months, and the ABCDEs of melanoma/NMSC. Answered all questions. Handouts on how to do a self-exam, skin cancers and sunprotection given to the patient. Follow-up: Skin cancer screening in September 2020 or return to clinic prn for new suspicious lesionsor if changes/symptoms in existing lesions develop. Note initiated by BOGDAN Canseco has performed the documentation for this encounter in the presence of and acting as ascribe for Dr. Castellanos. I performed the above scribed service and agree with the accuracy of the documentation in this encounter. Johnny Castellanos MD FAAD Section of Dermatology [facility] documented in this encounter Plan of Treatment Upcoming Encounters Date Type Specialty Care Team Description 11/04/2022 Office Visit Dermatology Johnny Castellanos MD [facility] DR KARLI ANDERSON-DERMAT [place], [place] [address] (Wo rk) documented as of this encounter Visit Diagnoses Diagnosis Benign neoplasm - Primary Benign neoplasm of unspecified site Cyst of skin Sebaceous cyst SK (seborrheic keratosis) Other seborrheic keratosis History of basal cell carcinoma (BCC) documented in this encounter Care Teams Cut Off Sawyer Log Relationship Specialty Start Date End Date Hermila Hamilton APRN PCP - General Family Medicine 08/30/[address] [place] [id number] documented as of this encounter
--- OUTSIDE RECORDS SUMMARY | 2022-08-20 14:07 | XMS_ITS | Encounter Summary ---
:1955 Author Organization [facility] [place] [address] Care Team Providers Name Role Phone Hermila Hamilton APRN Primary Care Provider [phone] Reason for Referral Diagnostic Test (Routine) - New Request Specialty Diagnoses / Procedures Referred By Contact Refer red To Contact Diagnoses Abdominal aortic aneurysm (AAA) without rupture Iliac aneurysm Merrill Richmond APRN [facility] Vascular Lab 3v Procedures AAA Duplex, Complete/Bilateral [facility] [place] [address] [place] [address] Referral ID Status Reason Start Expiration Visits Visits Date Date Requested Authorized [id number] New Request Specialty 10/01/2021 10/01/2022 1 1 Service Requested Encounter Details Date Type Department Care Team Description 10/01/2021 Office Visit Vascular Surgery at Merrill Richmond, Ab dominal aortic aneurysm (AAA) without rupture; [facility] [place] [place] [facility] LINE SERVICE SUPERVISOR Iliac aneurysm [facility] [address] [place] VASCULAR SURGERY [address] [place] [address] [phone] Social History Tobacco Use Types Packs/Day Years Used Date Heavy Tobacco Smoker Cigarettes 0.5 Smokeless Tobacco: Never Used Comments: quit 10/30/2015 Alcohol Use Standard Drinks/Week Comments No 0 (1 standard drink = 0.6 oz pure alcoho l) Sex Assigned at Date Recorded Not on file documented as of this encounter Last Filed Vital Signs Vital Sign Reading Time Taken Comments Blood Pressure 121/69 10/01/2021 9:43 AM EST Pulse 99 10/01/2021 9:43 AM EST Temperature - - Respiratory Rate - - Oxygen Saturation - - Inhaled Oxygen Concentration - - Weight - - Height - - Body Mass Index - - documented in this encounter Progress Notes Merrill Richmond, LINE SERVICE SUPERVISOR - 10/01/2021 10:00 AM EST F/u aortic duplex 66 yo male with known AAA per U/S 3 years ago and more recently with AAA and B iliac artery aneurysms on CT abd/pelvis for work up for urinary problems. Denies abd/back pain, SOB, chest pain, [place], DVT, HTN, CVA, TIa's, claudication. C/o left hip pain he is waiting for replacement. Denies family historyof AAA. He takes statin and ASA daily. He quit smoking end of August 2019. CT 02/14/20 with 4.0 cm AAA and 2.5 cm Left iliac and 2.6 cm right iliac artery aneurysms Today: Denies abd/back pain, claudication, rest pain, tissue loss, SOB, chest pain, TIa's. C/o hip pain. PMHx: Past Medical History: Diagnosis Date ??? [...] CTA Heart: RRR Abd: Soft, NT, ND, + palpable pulsatile masses Extremity - [place], warm, no ulceration, brisk capillary refill, no edema Vascular: R L Carotid 2/2 bruit (n) 2/2 bruit (n) Radial 2/2 2/2 Femoral 2/2 3/2 Popliteal -/2 -/2 DP 2/2 2/2 PT 2/2 2/2 Aortic duplex Claribel Renal Aorta ?PSV (cm/s): 71 ?EDV (cm/s): 37 ?Diam AP (cm): 2.7 ?Diam Lateral (cm): 2.5 Infra Renal Aorta ?PSV (cm/s): 47 ?EDV (cm/s): 0 ?Diam AP (cm): 3.4 ?Diam Lateral (cm): 3.2 Distal Aorta ?PSV (cm/s): 20 ?EDV (cm/s): 0 ?Diam AP (cm): 4.0 ?Diam Lateral (cm): 4.3 Common Iliac Artery, Proximal, Right ?PSV (cm/s): 54 ?EDV (cm/s): 0 ?Diam AP (cm): 3.1 ?Diam Lateral (cm): 3.1 Common Iliac Artery, Proximal, Left ?PSV (cm/s): 112 ?EDV (cm/s): 13 ?Diam AP (cm): 3.2 ?Diam Lateral (cm): 3.2 ? Interpretation: Patent infrarenal abdominal aortic aneurysm with a maximum diameter of 4.0 x 4.3 cm (previously 3.8 x 4.3 cm). Patent aneurysmal bilateral common iliac arteries with a maximum diameter of 3.1 cm on the RIGHT (previously 3.1 cm) and 3.2 cm on the LEFT (previously 3.1 cm). Duplex ?? Common Femoral Artery, Proximal, Right ?Diameter AP (cm): 1.3 ?Diameter Transverse (cm): 1.5 Common Femoral Artery, Mid, Right ?PSV (cm/s): 91 ?EDV: 0 ?Diameter AP (cm): 1.2 ?Diameter Transverse (cm): 1.3 Common femoral artery, Distal, Right ?Diameter AP (cm): 1.5 ?Diameter Transverse (cm): 1.6 Popliteal Artery, Above Knee, Right ?Diameter AP (cm): 1.0 ?Diameter Transverse (cm): 1.0 Popliteal Artery, Mid, Right ?PSV (cm/s): 47 ?EDV: 6 ?Diameter AP (cm): 0.9 ?Diameter Transverse (cm): 0.8 Popliteal Artery, Below Knee, Right ?Diameter AP (cm): 0.7 ?Diameter Transverse (cm): 0.7 Common Femoral Artery, Proximal, Left ?Diameter AP (cm): 1.4 ?Diameter Transverse (cm): 1.5 Common Femoral Artery, Mid, Left ?PSV (cm/s): 55 ?EDV: 7 ?Diameter AP (cm): 1.4 ?Diameter Transverse (cm): 1.4 Common femoral artery, Distal, Left ?Diameter AP (cm): 1.2 ?Diameter Transverse (cm): 1.3 Popliteal Artery, Above Knee, Left ?Diameter AP (cm): 0.7 ?Diameter Transverse (cm): 0.7 Popliteal Artery, Mid, Left ?PSV (cm/s): 32 ?EDV: 7 ?Diameter AP (cm): 0.8 ?Diameter Transverse (cm): 0.8 Popliteal Artery, Below Knee, Left ?Diameter AP (cm): 0.7 ?Diameter Transverse (cm): 0.6 ? Interpretation: Patent bilateral common femoral and popliteal arteries with no aneurysmal dilatation identified. ? Assessment//Plan: 66 yo male with known AAA per U/S two years ago and most recently with AAA and B iliac artery aneurysms on CT abd/pelvis for work up for urinary problems. Denies abd/back pain. Asymptomatic, stable. 4.3 cm AAA and right iliac 3.1 cm and left iliac 3.2 cm. No FARM MACHINERY ENGINE MECHANIC or popliteal arteryaneurysmal dilatation Discussed natural history of AAA Discussed warning signs. No vascular intervention warentted at this time. Recommend continuing ASA and stain. Plan RTC in 6 months with aortic duplex documented in this encounter Plan of Treatment Upcoming Encounters Date Type Specialty Care Team Description 11/04/2022 Office Visit Dermatology Johnny Castellanos MD [facility] ER DR KARLI ANDERSON-DERMAT [place], [place] [address] (Wo rk) documented as of this encounter Results AAA Duplex, Complete/Bilateral (04/04/2022 8:06 AM EDT) Component Value Ref Test Analysis Performed At [facility] Range Method Time Signature VB Text Department: Vascular Surgery Lab [facility] Report Patient: [id number] (JUAN CARLOS DEAN) CPT: [id number] Referring Physician: MERRILL RICHMOND APRN ?? Phone: Indications: F/U AAA and bilateral [...] Laterality 04/04/2022 8:06 AM EDT Merrill Richmond APRN VASCULAR ORDERABLES Performing Organization Address City/State/ZIP Code Phon e Number [email or web address] documented in this encounter Visit Diagnoses Diagnosis Abdominal aortic aneurysm (AAA) without rupture Iliac aneurysm Aneurysm of iliac artery documented in this encounter Care Teams Federal [employer] Law Clerk Relationship Specialty Start Date End Date Hermila Hamilton APRN PCP - General Family Medicine 08/30/[address] [place] [id number] documented as of this encounter
--- OUTSIDE RECORDS SUMMARY | 2022-08-20 14:07 | XMS_ITS | Encounter Summary ---
:1955 Demographics Home Phone Preferred Language Unknown Marital Status Unknown Rastafarian Affiliation Unknown Race Unknown Ethnic Group Unknown Author Organization [facility] Address [address] [place] [address] Care Team Providers Name Role Phone Unavailable Primary Care Provider Unavailable Encounter Details Date Type Department Care Team Description 01/31/2022 Lab Requisition [facility] Outr Resulting Lab, Pathology & Laboratory Provider [facility] [address] [place] [address] Social History Tobacco Use Types Packs/Day Years Used Date Never Assessed Sex Assigned at Date Recorded Not on file documented as of this encounter Plan of Treatment Not on filedocumented as of this encounter Procedures Procedure Name Priority Date/Time Associated Comments Diagnosis PSA TOTAL, Routine 01/29/2022 10:15 Results for this DIAGNOSTIC EST procedure are i n the results section. documented in this encounter Results PSA TOTAL, DIAGNOSTIC (01/29/2022 10:15 EST) Pathologist Sig nature PSA 1.7 0.0 - 4.5 ng/mL [facility] Specimen Blood - Venous blood (substance) Narrative [facility] - 01/31/2022 19:45 EST NOTE: Serum PSA concentration should not be in terpreted as absolute evidence for the presence or absence of malignant disease. Assayed on Siemens ADVIA Centaur XPT usi ng chemiluminescent technology.??Values obtained by using different assay methods cannot be used interchangeably. Performing Organization Address City/State/ZIP Code Phon e Number [facility] [address] [place] [address] SERVICES documented in this encounter Visit Diagnoses Not on filedocumented in this encounter
--- OUTSIDE RECORDS SUMMARY | 2022-08-20 14:07 | XMS_ITS | Encounter Summary ---
:1955 Author Organization [place] [address] Care Team Providers Name Role Phone Hermila Hamilton APRN Primary Care Provider [phone] Reason for Visit Reason Comments Basal Cell Carcinoma Encounter Details Date Type Department Care Team Description 01/10/2022 Clinical Support Dermatology at [facility] John Clarke , Basal cell carcinoma Road of right ear [address] [place], [place] CENTER [address] [facility] [phone] [place] [address] Social History Tobacco Use Types Packs/Day Years Used Date Heavy Tobacco Smoker Cigarettes 0.5 Smokeless Tobacco: Never Used Comments: quit 10/30/2015 Alcohol Use Standard Drinks/Week Comments No 0 (1 standard drink = 0.6 oz pure alcoho l) Sex Assigned at Date Recorded Not on file documented as of this encounter Progress Notes Melissa Blankenship RN - 01/10/2022 7:45 AM EST Mohs consultation and preoperative note (H&P) Patient Name: Juan Dean Age: 66 y.o. Date of : 1955 Today's Date: 01/10/2022 REFERRING PROVIDER: Johnny Castellanos MD CC: Mohs [...] Mohs surgery? yes, previous Mohs with Dr. Staton right tragus 2017 If yes, have you ever had Mohs [...] [facility] [address] KARLI ANDERSON-DERMAT [place], [place] [address] (Wo rk) documented as of this encounter Visit Diagnoses Diagnosis Basal cell carcinoma of right ear documented in this encounter Care Teams Set Off Press Operator Relationship Specialty Start Date End Date Hermila Hamilton APRN PCP - General Family Medicine 08/30/[address] [place] [phone] documented as of this encounter
--- OUTSIDE RECORDS SUMMARY | 2022-08-20 14:07 | XMS_ITS | Encounter Summary ---
:1955 Author Organization [facility] Address [place] [id number] Care Team Providers Name Role Phone Hermila Hamilton APRN Primary Care Provider [phone] Encounter Details Date Type Department Care Team Description 02/07/2022 Office Visit Dermatology at [facility] Vi sit for wound check [address] [place] [address] [facility]Y [place] [address] Social History Tobacco Use Types Packs/Day Years Used Date Heavy Tobacco Smoker Cigarettes 0.5 Smokeless Tobacco: Never Used Comments: quit 10/30/2015 Alcohol Use Standard Drinks/Week Comments No 0 (1 standard drink = 0.6 oz pure alcoho l) Sex Assigned at Date Recorded Not on file documented as of this encounter Progress Notes John Clarke MD - 02/07/2022 3:15 PM EDT Images from the original note were not included. Dermatologic Surgery Post-Operative Follow Up Visit Patient: Juan Dean Today's Date: 02/07/2022 Date of : 1955 Chief complaint: Here for wound check History of Present Illness: Juan Dean is a 66 y.o. male presents today for status post Mohs micrographic surgery for basal cell carcinoma, nodular, with surgery date 01/10/2022, allowed to heal by second intention, located onthe right posterior ear. Patient denies post-operative course complications and had an uneventful post-op course. Reports tenderness when sleeping on it. Examination: Focused examination performed of the surgical site. This reveals a well-healing wound with good granulation tissue. No evidence on infection. Assessment: 1. Normal healing post-surgical site without any signs/symptoms of infection. Plan: 1. Overlying crust removed using a curette. Vaseline and bandage applied. 2. Continue to apply Vaseline daily until healed. 3. Follow up as needed. Note initiated by SAEID Tomlinson CMA has performed the documentation for this encounter in the presence of and acting as a scribe for Dr. Clarke I performed the above scribed service and agree with the accuracy of the documentation in this encounter. Reviewed and signed by: John Clarke Dermatology [facility] John Clarke MD Mohs Micrographic Surgery and Dermatologic Oncology Department of Dermatology documented in this encounter Plan of Treatment Upcoming Encounters Date Type Specialty Care Team Description 11/04/2022 Office Visit Dermatology Johnny Castellanos MD [facility] DR KARLI ANDERSON-DERMAT [place], [place] [address] (Wo rk) documented as of this encounter Visit Diagnoses Diagnosis Visit for wound check Encounter for other specified aftercare documented in this encounter Care Teams Management Aide Relationship Specialty Start Date End Date Hermila Hamilton APRN PCP - General Family Medicine 08/30/16 [address] [place] [address] documented as of this encounter
--- OUTSIDE RECORDS SUMMARY | 2022-08-20 14:07 | XMS_ITS | Encounter Summary ---
:1955 Author Organization [facility] [place] [address] Care Team Providers Name Role Phone JoyHermila Marcy KOENIG Primary Care Provider [phone] Encounter Details Date Type Department Care Team Description 08/29/2020 Office Visit Vascular Surgery at [facility], Matilda Christiansen, Ab dominal aortic aneurysm (AAA) without rupture; [facility] [employer] Iliac artery aneurysm, bilateral Formerly [facility], [facility] [address] [place], [place] VASCULAR SURGERY [id number] [place] [address] [phone] Social History Tobacco Use Types Packs/Day Years Used Date Former Smoker 0.75 Smokeless Tobacco: Never Used Comments: quit 10/30/2015 Alcohol Use Standard Drinks/Week Comments No 0 (1 standard drink = 0.6 oz pure alcoho l) Sex Assigned at Date Recorded Not on file documented as of this encounter Last Filed Vital Signs Vital Sign Reading Time Taken Comments Blood Pressure 108/70 08/29/2020 9:25 AM EDT Pulse 84 08/29/2020 9:25 AM EDT Temperature - - Respiratory Rate - - Oxygen Saturation - - Inhaled Oxygen Concentration - - Weight 83.9 kg (185 lb) 08/29/2020 9:25 AM EDT Height 182.9 cm (6') 08/29/2020 9:25 AM EDT Body Mass Index 25.09 08/29/2020 9:25 AM EDT documented in this encounter Progress Notes Maribel Castillo, [employer] - 08/29/2020 9:30 AM EDT This is a known patient, previously met via telehealth r/t public health concerns who is being evaluated for AAA and bilateral Iliac artery aneurysms. 64 yo male with known AAA per previous U/S and most recently with AAA and B iliac artery aneurysms on CT abd/pelvis for work up for urinary problems. Denies abd/back pain, SOB, chest pain, [place], DVT, HTN, CVA, TIa's, claudication. C/o left hip pain he is waiting for replacement. Denies family history ofAAA. He takes statin and ASA daily. He quit smoking end of August 2019. CT 02/14/20 with 4.0 cm AAA and 2.5 cm Left iliac and 2.6 cm right iliac artery aneurysms Atherosclerotic RF: DM (N) HTN (N) CAD (N) CHF (N) HLD (N) CVA (N) Tobacco (Y) Former smoker Statin (Y) ASA (Y) PMHx: Past Medical History: Diagnosis Date ??? [...] Use Topics ??? Alcohol use: No Medications: Medications 08/29/20 0941 Medication Sig Taking? finasteride (Proscar) 5 mg Tablet Take 5 mg by mouth daily. Yes atorvastatin (LIPITOR) 20 mg Tablet Take 20 mg by mouth daily. Yes tamsulosin (FLOMAX) 0.4 mg Capsule Take 0.4 mg by mouth daily. Yes aspirin 81 mg Tablet, Delayed Release (E.C.) Take 81 mg by mouth daily. Yes Allergies: Allergies Allergen Reactions ??? Blueberry Nausea And Vomiting Review of Systems: Constitutional (weight change, fever) - Denies Neuro (dizziness, seizures, numbness, tingling) - Denies Eyes (vision) - Denies Ears, nose, throat (hearing) - Denies Cardiovascular (CP) - Denies Respiratory (SOB) - Denies GI (abd pain, nausea, emesis, blood in stool) - Denies (hematuria, dysuria, frequency) - Denies Muscoloskeletal (extremity pain, weakness) - s/p R DANTE, pending L DANTE with left hip pain and gait abnormality. Skin (ulcers, rashes) - negative All other ROS negative Physical Exam: Vitals: Vitals: 08/29/20 0925 BP: 108/70 BP Location (NBP): Right arm Patient Position: Sitting Pulse: 84 Weight: 83.9 kg (185 lb) Height: 182.9 cm (6') General: NAD, appears well Neuro: Alert and oriented, motor sensory grossly intact Lungs: CTA Heart: RRR Abd: Soft, NT, ND, no palpable pulsatile masses Extremity - [place], warm, no ulceration, brisk capillary refill, no edema Vascular: R L Carotid 2/2 bruit (n) 2/2 bruit (n) Radial 2/2 2/2 Femoral 2/2 2/2 Popliteal 0/2 0/2 DP 2/2 1/2 PT 2/2 1/2 Labs/Studies: AAA Duplex Findings: Infra Renal Aorta ?PSV (cm/s): 53 ?EDV (cm/s): 14 ?Diam AP (cm): 3.3 ?Diam Lateral (cm): 3.0 Distal Aorta ?PSV (cm/s): 38 ?EDV (cm/s): 0 ?Diam AP (cm): 3.9 ?Diam Lateral (cm): 4.4 Common Iliac Artery, Proximal, Right ?PSV (cm/s): 82 ?EDV (cm/s): 12 ?Diam AP (cm): 3.0 ?Diam Lateral (cm): 3.0 Common Iliac Artery, Proximal, Left ?PSV (cm/s): 112 ?EDV (cm/s): 20 ?Diam AP (cm): 3.0 ?Diam Lateral (cm): 3.2 ?? Interpretation: Patent abdominal aortic aneurysm with a maximum diameter of 3.9 x 4.4 cm. The proximal aorta was notvisualized due to overlying bowel gas. ?? Patent RIGHT proximal common iliac artery aneurysm with a maximum diameter of 3.0 x 3.0 cm. Patent LEFT proximal common iliac artery aneurysm with a maximum diameter of 3.0 x 3.2 cm. The aneurysm appears to extend into the mid segment of the common iliac artery, however unable to obtain an accurate measurement due to overlying bowel gas. Assessment/Plan: 65 y/o M former smoker with PMH AAA, B iliac artery aneurysms and DJD s/p R DANTE with L DANTE pending. AAA has grown from 4.0cm on 01/2020 CT to 4.4cm on today's duplex. CT 01/2020 with 2.5cm left iliac and 2.6cm right iliac artery aneurysms and 3.0cm left and 3.2cm right iliac aneurysms on today's duplex. Patient remains asymptomatic and is not a surgical candidate at this time based on aneurysm size. Given information packet on aneurysms and possible future repair options. Continue ASA/Plavix therapy and smoking cessation. Pt given warnings on presenting to ED with any new back/belly pain. RTC 6 month with repeat AAA duplex. ARYA Ashley APRN Department of Vascular Surgery Addendum He is not taking or on Plavix documented in this encounter Plan of Treatment Upcoming Encounters Date Type Specialty Care Team Description 11/04/2022 Office Visit Dermatology Johnny Castellanos MD [facility] ER DR KARLI [place], [place] [address] (Wo rk) documented as of this encounter Results AAA Duplex, Complete/Bilateral (02/27/2021 8:33 AM EDT) Component Value Ref Test Analysis Performed At [facility] Range Method Time Signature VB Text Department: Vascular Surgery Lab VASCUBASE Report Patient: [id number] (JUAN CARLOS DEAN) CPT: 17613 ICD10: I72.3;I71.4 Referring Physician: MARIBEL CASTILLO ?? [...] artery documented in this encounter Care Teams Materials Coordinator Relationship Specialty Start Date End Date Hermila Hamilton APRN PCP - General Family Medicine 08/30/16 [address] [place] [id number] documented as of this encounter
--- OUTSIDE RECORDS SUMMARY | 2022-08-20 14:10 | XMS_ITS ---
:1955 Author Care Team Providers Name Role Phone DR. ERNESTO SAMUEL Primary Care Provider [phone] DR. ERNESTO SAMUEL Referring Provider [phone] Allergies Code Code System Name Reaction Severity Status Onset [id number] RxNorm Blueberry ? ? Active ? Medications Name Status Start Date Stop Date ? ? Asprin Ec Low Dose 81 mg tablet,delayed release Active ? Not available Take 1 tablet every day by oral route. atorvastatin 20 mg tablet Active ? Not av ailable Take 1 tablet every day by oral route. Nicoderm CQ 14 mg/24 hr daily transdermal patch Active ? Not available Apply 1 patch every day by transdermal route. sulfamethoxazole-trimethoprim Completed ? 800-160mg tabket twice a day tamsulosin 0.4 mg capsule Active ? Not av ailable Take 1 capsule every day by oral route. Tylenol PM Extra Strength 25 mg-500 mg tablet Active ? Not available Take 1 tablet every day by oral route as needed. Problems Name Status Onset Date Source ? Basal Cell Carcinoma of Face Active 01/21/2020 ? Hyperlipidemia Active 01/21/2020 ? Tobacco Dependence Syndrome Active 01/21/2020 ? Abdominal Aortic Aneurysm Active 01/21/2020 ? Large Prostate Active 01/21/2020 ? Seborrheic Dermatitis Active 01/21/2020 ? Osteoarthritis of Hip Active 01/21/2020 ? Procedures Date Name Performed by ? 07/21/2017 Arthroplasty of Right Hip Joint Informat ion not available ? Appendectomy Information not avai lable ? Hernia Repair Information not avai lable 01/24/2020 XR, Hip, Unilateral, 2 or 3 View [facility] Rad[facility] [address] [place] [phone] (Work Place) Results Lab Results None recorded. Past Encounters None recorded. Social History Tobacco Smoking Status Former Smoker Notes: wearing a nicotine patch currently x 1 month Vaccine List None recorded. Plan of Care Reminders Provider Appointments None recorded. ? ? Lab None recorded. ? ? Referral None recorded. ? ? Procedures None recorded. ? ? Surgeries None recorded. ? ? Imaging None recorded. ? ? Vitals Height Weight BMI Blood Pressure 182.88 cm 84.73 kg 25.3 kg/m2 134/82 mm[Hg]
== END ==
PROVIDERS: PCP Nurse Practitioner; Visit Provider Nurse Practitioner Gerontology
DX: R10.9 Unspecified abdominal pain (principal); R14.0 Abdominal distension (gaseous); R93.3 Abnormal findings on diagnostic imaging of other parts of digestive tract
CPT/HCPCS: 74018

== ENCOUNTER → 2022-08-27 08:14 | Outpatient (BNVA) | payer MEDICARE, SELFPAY | PROVIDERS: PCP Nurse Practitioner; Referring Provider Nurse Practitioner; Visit Provider Surgery | DX: R31.0 Gross hematuria (principal); R14.0 Abdominal distension (gaseous); R19.7 Diarrhea, unspecified; K59.00 Constipation, unspecified | CPT/HCPCS: 99212; 99214; 99215 ==

== ENCOUNTER → 2022-08-27 09:10 | Outpatient (BNVA) | payer MEDICARE, SELFPAY | PROVIDERS: PCP Nurse Practitioner; Referring Provider Nurse Practitioner; Visit Provider Urology | DX: C68.9 Malignant neoplasm of urinary organ, unspecified (principal) | CPT/HCPCS: 99215 ==

== ENCOUNTER → 2022-08-29 01:59 | Outpatient (CLI) | payer MEDICARE, SELFPAY ==
[2022-08-29] MEDS: Omnipaque 350 MG/ML 500 ML BTL-Imaging package 70 ML IJ (09:03)
--- NOTE | 2022-08-29 09:05 | DI.CT_ITS ---
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 COMPARISON: CT CT ABDOMEN PELVIS WO/W from 02/14/2020 FINDINGS: There is mild subpleural emphysema. There are apparent changes of linear bibasilar pulmonary scarrin g. There is a stable 6 millimeter mean diameter right middle lobe intrapulmonary nodule, no change f rom January 2020. No new nodule identified.. There is no evidence of pleural effusion. There is no evidence of pulmonary embolic disease. There is unremarkable appearance of the thoracic aorta and major branches with no evidence of aneurysm or dissection. There is no mediastinal or hilar adenopathy. Tracheobronchial tree appears intact. No axillary or supraclavicular adenopathy. Visualized portions of the liver, spleen, and kidneys are unremarkable. Previously noted 19 millimet er left adrenal nodule is unchanged from prior CT of 2019.. No abnormality seen involving the bony thorax. IMPRESSION: No evidence of acute process. No evidence of metastatic disease.. RADIATION DOSE DELIVERED: 675.02mGy.cm Total DLP 675.02mGy.cm Total DLP !Error CTDIvol DATA REPOSITORY: All CT scans at this facility are submitted to the National Radiology Data Registry (NRDR) Dose Index Registry (DIR) with the [employer] (A[employer]). RADIATION OPTIMIZATION: All CT scans at this facility use at least one of these dose optimization te chniques: automated exposure control; mA and/or kV adjustment per patient size (includes targeted exa ms where dose is matched to clinical indication); or iterative reconstruction.
== END ==
PROVIDERS: PCP Nurse Practitioner; Visit Provider Urology
DX: C68.9 Malignant neoplasm of urinary organ, unspecified (principal)
CPT/HCPCS: 99214; 71260